=== PATIENT | male | born 1935 | race Caucasian/White ===

== ENCOUNTER 2019-05-12 18:37 | Observation (INO) | payer MEDICARE, OTHER ==
[~2019-05-12] VITALS: Ht 190.5 cm; Wt 101.6 kg
--- OUTSIDE RECORDS SUMMARY | 2019-05-12 18:41 | XMS REPORT ---
Author Author [facility] Address Unknown Phone Unavailable Care Team Providers Care Human Resources Supervisor Name Role Phone Unavailable Unavailable Payers Payer Name Policy Type Policy Number Effective Date Expiration Date Problems This patient has no known problems. Allergies, Adverse Reactions, Alerts Allergy Name Allergy Type Status Severity Reaction(s) Onset Date Inactive Date Treating Clinician Comments No Known Allergies DA Active U 2018-10-12 00:00:00 No Known Allergies DA Active U 2018-10-11 00:00:00 No Known Allergies DA Active U 2018-09-26 00:00:00 No Known Allergies DA Active U 2016-03-03 00:00:00 Medications This patient has no known medications. Results Test Description Test Time Test Comments Text Results Atomic Results Result Comments - XR CHEST 2 V 2018-10-19 15:01:00 FAX: Erik Garcia MD [phone] [place]: St: ADM FAX: Sukhdev Forde Fo Name: SHWETHA CARCAMO [facility] : 1935 Age/S: 83/M [address] Unit #: [id number] Loc: V.3091 [place] [address] Phys: Sukhdev Acostag DO Acct: [id number] Dis Date: Status: ADM IN PHONE #: [phone] Exam Date: 10/19/2018 1459 FAX #: [phone] Reason: increased fatigue and sobn EXAMS: CPT CODE: [id number] XR CHEST 2 V 80478 REASON FOR EXAM: increased fatigue and sobn Exam Order Date: 10/19/2018 12:00 AM Ordering Pernell: Sukhdev Acosta DO PROCEDURE: - XR CHEST 2 V COMPARISON: 10/16/2018 FINDINGS: PA and lateral views of the chest show patchy airspace opacity of the left base. The heart size is within normal limits. Pulmonary vasculatures are unremarkable. The osseous structures are grossly intact. IMPRESSION: Stable appearance of the atelectasis of the left base with a small left pleural effusion at 1501 Reported and signed by: Andrzej Wilson M.D. CC: Erik Elizabeth MD; Sukhdve Acosta DO Technologist: RT IVY(R); CODY Evansalrd Date/Time/By: 10/19/2018 (0691) : By: SaharaVTL Orig Print D/T: S: 10/19/2018 (3362) PAGE 1 Signed Report GLUBED 2018-10-19 10:26:00 GLUBED (test code=GLUBED) 100 mg/dL 74-106 Performed by certified directory assistance operator at [facility] BASIC METABOLIC [id number] 06:47:00* Test Item Value Reference Range Comments SODIUM (test code=NA) 141 mmol/L 136-145 POTASSIUM (test code=K) 4.1 mmol/L 3.5-5.1 CHLORIDE (test code=CL) 110.0 mmol/L 98-107 CARBON DIOXIDE (test code=CO2) 26.0 mmol/L 21-32 ANION GAP (test code=GAP) 9.1 10-20 GLUCOSE (test code=GLU) 108 mg/dL 74-106 BLOOD UREA NITROGEN (test code=BUN) 14 mg/dL 7-18 GLOMERULAR FILTRATION RATE (test code=GFR) > 60 mL/min >=60 Estimated GFR by using Modified MDRD formula.Chronic kidney disease is defined as either kidney damageor GFR <60 mL/min/1.73 m2 for >3 months. CREATININE (test code=CREAT) 1.00 mg/dL 0.7-1.3 BUN/CREATININE RATIO (test code=BUN/CREA) 13.6 10-20 CALCIUM (test code=CA) 8.2 mg/dL 8.5-10.1 B-TYPE NATRIURETIC [id number] 06:24:00* Test Item Value Reference Range Comments B-TYPE NATRIURETIC PEPTIDE (test code=BNP) 179.37 pgram/mL 0-100 CBC W/AUTO [id number] 06:02:00* Test Item Value Reference Range Comments WHITE BLOOD CELL (test code=WBC) 8.5 K/mm3 4.5-12.5 RED BLOOD CELL (test code=RBC) 2.89 mill/mm3 4.0-5.8 HEMOGLOBIN (test code=HGB) 8.5 gram/dL 13.0-17.5 HEMATOCRIT (test code=HCT) 27.9 % 42.0-52.0 MEAN CELL VOLUME (test code=MCV) 96.5 fL 80-98 MEAN CELL HGB (test code=MCH) 29.4 picogram 27.0-33.0 MEAN CELL HGB CONCETRATION (test code=MCHC) 30.5 gram/dL 33.0-36.0 RED CELL DISTRIBUTION WIDTH (test code=RDW) 15.3 % 11.6-16.2 RED CELL DISTRIBUTION WIDTH SD (test code=RDW-SD) 52.4 fL 37.0-51.0 PLATELET COUNT (test code=PLT) 348 K/mm3 150-450 MEAN PLATELET VOLUME (test code=MPV) 9.5 fL 6.7-11.0 NEUTROPHIL % (test code=NT%) 57.1 % 39.0-69.0 IMMATURE GRANULOCYTE % (test code=IG%) 0.9 % 0.0-5.0 LYMPHOCYTE % (test code=LY%) 27.1 % 25.0-55.0 MONOCYTE % (test code=MO%) 11.9 % 0.0-10.0 EOSINOPHIL % (test code=EO%) 2.4 % 0.0-5.0 BASOPHIL % (test code=BA%) 0.6 % 0.0-1.0 NUCLEATED RBC % (test code=NRBC%) 0.0 % 0-0 NEUTROPHIL # (test code=NT#) 4.85 K/mm3 1.8-7.7 IMMATURE GRANULOCYTE # (test code=IG#) 0.08 x10 3/uL 0-0.03 LYMPHOCYTE # (test code=LY#) 2.30 K/mm3 1.0-5.0 MONOCYTE # (test code=MO#) 1.01 K/mm3 0-0.8 EOSINOPHIL # (test code=EO#) 0.20 K/mm3 0.0-0.5 BASOPHIL # (test code=BA#) 0.05 K/mm3 0.0-0.2 NUCLEATED RBC # (test code=NRBC#) 0.00 K/mm3 0.0-0.1 - XR CHEST 2 [id number] 18:04:00 FAX: Erik Garcia MD [phone] [place]: St: ADM FAX: Sukhdev Forde [facility] FAX: Lynda Oconnor NP [phone] Name: SHWETHA CARCAMO [facility] : 1935 Age/S: 83/M [address] [facility] Unit #: [id number] Loc: V.3091 [place] [address] Phys: Lynda Oconnor NP Acct: [id number] Dis Date: Status: ADM IN PH ONE #: [phone] Exam Date: 10/16/2018 1750 FAX #: [phone] Reason: CHEST PAIN EXAMS: CPT CODE: [id number] XR CHEST 2 V 25196 CLINICAL HISTO RY: CHEST PAIN TECHNIQUE: AP chest x-ray COMPARISON: Previous day. IMPRESSION: No significant inte rval change. Small left pleural effusion and basilar atelectasis. Mild c ardiomegaly. Atherosclerotic vascular calcification of the thoracic aort a. a t 180 Reported and signed by: Catarina Hansen D.O. CC: Erik Elizabeth MD; Sukhdev Acosta [facility] DO; Lynda Oconnor INGREDIENT HANDLER Techn ologist: MITCHEL GILL, RT(R) Trnscrd Date/Evan e/By: 10/16/2018 (1803) : By: [email or web address] Orig Print D/T: S: 10/16/2018 (3027) PAGE 1 Signed Report - XR CHEST 2 [id number] 09:35:00 FAX: Erik Garcia MD [phone] [place]: St: ADM FAX: Sukhdev Forde FAX: Evi Gasca --------- Name: SHWETHA CARCAMO [facility] : 1935 Age/S: 83/M [address] it #: [id number] Loc: V.3091 [place] [address] Phys: Evi Lima [place] Acct: [id number] Dis Date: Status: ADM IN ONE #: [phone] Exam Date: 10/15/2018920 FAX #: [phone] Reason: sob EXAMS: CPT CODE: [id number] XR CHEST 2 V 27111 HISTORY: Short ness of breath. COMPARISON: October 11, 2018 Moderate r ight effusion with subsegmental atelectasis appears slightly worse from pr evious exam. COPD. Calcified granulomas in the right upper lobe Moderate c ardiomegaly. DJD of the dorsal spine. IMPRESSION: Increasing moderate left effusion with subsegmental atelectasis with out infiltrates or congestion. at 0935 Reported and signed by: Cher Barroso M.D. CC: Erik Elizabeth MD; Sukhdev Acosta Pe, DO; Evi Lima Technologist: RT IVY([place]) Trnscrd Date/Time/By: 10/15/2018 (6177) : By: [email or web address] Orig Print D/T: S: 10/15/2018 (0122) PAGE 1 Signed Report BASIC METABOLIC [id number] 07:41:00* Test Item Value Reference Range Comments SODIUM (test code=NA) 141 mmol/L 136-145 POTASSIUM (test code=K) 4.6 mmol/L 3.5-5.1 CHLORIDE (test code=CL) 110.0 mmol/L 98-107 CARBON DIOXIDE (test code=CO2) 24.0 mmol/L 21-32 ANION GAP (test code=GAP) 11.6 10-20 GLUCOSE (test code=GLU) 108 mg/dL 74-106 BLOOD UREA NITROGEN (test code=BUN) 14 mg/dL 7-18 GLOMERULAR FILTRATION RATE (test code=GFR) > 60 mL/min >=60 Estimated GFR by using Modified MDRD formula.Chronic kidney disease is defined as either kidney damageor GFR <60 mL/min/1.73 m2 for >3 months. CREATININE (test code=CREAT) 0.90 mg/dL 0.7-1.3 BUN/CREATININE RATIO (test code=BUN/CREA) 15.2 10-20 CALCIUM (test code=CA) 8.4 mg/dL 8.5-10.1 BASIC METABOLIC [id number] 07:29:00* Test Item Value Reference Range Comments SODIUM (test code=NA) 141 mmol/L 136-145 POTASSIUM (test code=K) 4.6 mmol/L 3.5-5.1 CHLORIDE (test code=CL) 110.0 mmol/L 98-107 CARBON DIOXIDE (test code=CO2) mmol/L 21-32 ANION GAP (test code=GAP) 10-20 GLUCOSE (test code=GLU) mg/dL 74-106 BLOOD UREA NITROGEN (test code=BUN) mg/dL 7-18 GLOMERULAR FILTRATION RATE (test code=GFR) mL/min >=60 CREATININE (test code=CREAT) mg/dL 0.7-1.3 BUN/CREATININE RATIO (test code=BUN/CREA) 10-20 CALCIUM (test code=CA) mg/dL 8.5-10.1 [id number] 07:04:00* Test Item Value Reference Range Comments AMMONIA (test code=AMM) 12 umol/L 11-32 CBC W/AUTO [id number] 06:59:00* Test Item Value Reference Range Comments WHITE BLOOD CELL (test code=WBC) 8.1 K/mm3 4.5-12.5 RED BLOOD CELL (test code=RBC) 2.57 mill/mm3 4.0-5.8 HEMOGLOBIN (test code=HGB) 7.9 gram/dL 13.0-17.5 HEMATOCRIT (test code=HCT) 25.5 % 42.0-52.0 MEAN CELL VOLUME (test code=MCV) 99.2 fL 80-98 MEAN CELL HGB (test code=MCH) 30.7 picogram 27.0-33.0 MEAN CELL HGB CONCETRATION (test code=MCHC) 31.0 gram/dL 33.0-36.0 RED CELL DISTRIBUTION WIDTH (test code=RDW) 15.4 % 11.6-16.2 RED CELL DISTRIBUTION WIDTH SD (test code=RDW-SD) 54.2 fL 37.0-51.0 PLATELET COUNT (test code=PLT) 342 K/mm3 150-450 MEAN PLATELET VOLUME (test code=MPV) 9.4 fL 6.7-11.0 NEUTROPHIL % (test code=NT%) 60.6 % 39.0-69.0 IMMATURE GRANULOCYTE % (test code=IG%) 1.7 % 0.0-5.0 LYMPHOCYTE % (test code=LY%) 20.5 % 25.0-55.0 MONOCYTE % (test code=MO%) 12.5 % 0.0-10.0 EOSINOPHIL % (test code=EO%) 4.3 % 0.0-5.0 BASOPHIL % (test code=BA%) 0.4 % 0.0-1.0 NUCLEATED RBC % (test code=NRBC%) 0.0 % 0-0 NEUTROPHIL # (test code=NT#) 4.93 K/mm3 1.8-7.7 IMMATURE GRANULOCYTE # (test code=IG#) 0.14 x10 3/uL 0-0.03 LYMPHOCYTE # (test code=LY#) 1.67 K/mm3 1.0-5.0 MONOCYTE # (test code=MO#) 1.02 K/mm3 0-0.8 EOSINOPHIL # (test code=EO#) 0.35 K/mm3 0.0-0.5 BASOPHIL # (test code=BA#) 0.03 K/mm3 0.0-0.2 NUCLEATED RBC # (test code=NRBC#) 0.00 K/mm3 0.0-0.1 [id number] 06:33:00* Test Item Value Reference Range Comments GLUBED (test code=GLUBED) 112 mg/dL 74-106 Performed by certified directory assistance operator at [facility] [id number] 20:41:00* Test Item Value Reference Range Comments GLUBED (test code=GLUBED) 117 mg/dL 74-106 Performed by certified directory assistance operator at [facility] - XR CHEST 1 [id number] 14:59:00 FAX: Parag Andrade MD [place]: B St: ADM FAX: Erik Garcia MD [phone] FAX: Lynda Oconnor NP [phone] Name: SHWETHA CARCAMO [facility] : 1935 Age/S: 83/M [address] [facility] Unit #: [id number] Loc: V.2094 [place] [address] Phys: Lynda Oconnor NP Acct: [id number] Dis Date: Status: ADM IN ONE #: [phone] Exam Date: 10/11/2018 5105 FAX #: [phone] Reason: cough EXAMS: CPT CODE: [id number] XR CHEST 1 V 80119 REASON FOR EXAM: cough EXAM ORDER DATE: 10/11/2018 12:00 AM Ordering Pernell: Lynda Oconnor NP PROCEDURE: - XR CHEST 1 V COMPARISON: 10/08/2018 FINDINGS: Portable AP frontal view of the chest obtained at 2:43 PM shows patchy airspace opacity of the left base. There is no evidence of effusion. The heart size is within normal limits. Pulmonary vasculatures are minimally congested. I MPRESSION: Minimal pulmonary venous congestion and patchy atelectasis of the left base at 5780 Reported and signed by: Andrzej Wilson M.D. CC: Parag Garsia; Erik Elizabeth MD; Lynda Oconnor NP Technologist: RT IVY([place]) Trnscrd Date/Time/By: 0 10/11/2018 (1459) : By: SaharaVTL Orig Print D/T: S: 10/11/2018 (1549) PAGE 1 Signed Report [id number] 11:56:00* Test Item Value Reference Range Comments GLUBED (test code=GLUBED) 130 mg/dL 74-106 Performed by certified directory assistance operator at [facility]2019-07-29 05:56:00* Test Item Value Reference Range Comments GLUBED (test code=GLUBED) 117 mg/dL 74-106 Performed by certified directory assistance operator at [facility] [id number] 20:43:00* Test Item Value Reference Range Comments GLUBED (test code=GLUBED) 104 mg/dL 74-106 Performed by certified directory assistance operator at [facility] [id number] 17:46:00* Test Item Value Reference Range Comments GLUBED (test code=GLUBED) 123 mg/dL 74-106 Performed by certified directory assistance operator at [facility] [id number] 12:23:00* Test Item Value Reference Range Comments GLUBED (test code=GLUBED) 117 mg/dL 74-106 Performed by certified directory assistance operator at [facility] [id number] 21:35:00* Test Item Value Reference Range Comments GLUBED (test code=GLUBED) 105 mg/dL 74-106 Performed by certified directory assistance operator at [facility] [id number] 17:15:00* Test Item Value Reference Range Comments GLUBED (test code=GLUBED) 84 mg/dL 74-106 Performed by certified directory assistance operator at [facility] [id number] 12:46:00* Test Item Value Reference Range Comments GLUBED (test code=GLUBED) 102 mg/dL 74-106 Performed by certified directory assistance operator at [facility] [id number] 08:42:00* Test Item Value Reference Range Comments GLUBED (test code=GLUBED) 97 mg/dL 74-106 Performed by certified directory assistance operator at [facility] BASIC METABOLIC [id number] 05:43:00* Test Item Value Reference Range Comments SODIUM (test code=NA) 139 mmol/L 136-145 POTASSIUM (test code=K) 4.0 mmol/L 3.5-5.1 CHLORIDE (test code=CL) 108.0 mmol/L 98-107 CARBON DIOXIDE (test code=CO2) 23.0 mmol/L 21-32 ANION GAP (test code=GAP) 12.0 10-20 GLUCOSE (test code=GLU) 122 mg/dL 74-106 BLOOD UREA NITROGEN (test code=BUN) 25 mg/dL 7-18 GLOMERULAR FILTRATION RATE (test code=GFR) > 60 mL/min >=60 Estimated GFR by using Modified MDRD formula.Chronic kidney disease is defined as either kidney damageor GFR <60 mL/min/1.73 m2 for >3 months. CREATININE (test code=CREAT) 1.00 mg/dL 0.7-1.3 BUN/CREATININE RATIO (test code=BUN/CREA) 26.3 10-20 CALCIUM (test code=CA) 8.4 mg/dL 8.5-10.1 [id number] 05:43:00* Test Item Value Reference Range Comments PHOSPHORUS (test code=PHOS) 4.2 mg/dL 2.5-4.9 [id number] 05:43:00* Test Item Value Reference Range Comments MAGNESIUM (test code=MAG) 2.6 mg/dL 1.8-2.4 BASIC METABOLIC [id number] 05:34:00* Test Item Value Reference Range Comments SODIUM (test code=NA) 139 mmol/L 136-145 POTASSIUM (test code=K) 4.0 mmol/L 3.5-5.1 CHLORIDE (test code=CL) 108.0 mmol/L 98-107 CARBON DIOXIDE (test code=CO2) mmol/L 21-32 ANION GAP (test code=GAP) 10-20 GLUCOSE (test code=GLU) mg/dL 74-106 BLOOD UREA NITROGEN (test code=BUN) mg/dL 7-18 GLOMERULAR FILTRATION RATE (test code=GFR) mL/min >=60 CREATININE (test code=CREAT) mg/dL 0.7-1.3 BUN/CREATININE RATIO (test code=BUN/CREA) 10-20 CALCIUM (test code=CA) mg/dL 8.5-10.1 [id number] 05:34:00* Test Item Value Reference Range Comments PHOSPHORUS (test code=PHOS) mg/dL 2.5-4.9 [id number] 05:34:00* Test Item Value Reference Range Comments MAGNESIUM (test code=MAG) mg/dL 1.8-2.4 CBC W/AUTO [id number] 05:24:00* Test Item Value Reference Range Comments WHITE BLOOD CELL (test code=WBC) 11.1 K/mm3 4.5-12.5 RED BLOOD CELL (test code=RBC) 2.51 mill/mm3 4.0-5.8 HEMOGLOBIN (test code=HGB) 7.7 gram/dL 13.0-17.5 HEMATOCRIT (test code=HCT) 23.3 % 42.0-52.0 MEAN CELL VOLUME (test code=MCV) 92.8 fL 80-98 MEAN CELL HGB (test code=MCH) 30.7 picogram 27.0-33.0 MEAN CELL HGB CONCETRATION (test code=MCHC) 33.0 gram/dL 33.0-36.0 RED CELL DISTRIBUTION WIDTH (test code=RDW) 14.6 % 11.6-16.2 RED CELL DISTRIBUTION WIDTH SD (test code=RDW-SD) 49.5 fL 37.0-51.0 PLATELET COUNT (test code=PLT) 233 K/mm3 150-450 RESULT VERIFIED BY REPEAT ANALYSIS MEAN PLATELET VOLUME (test code=MPV) 10.2 fL 6.7-11.0 NEUTROPHIL % (test code=NT%) 61.6 % 39.0-69.0 IMMATURE GRANULOCYTE % (test code=IG%) 1.4 % 0.0-5.0 LYMPHOCYTE % (test code=LY%) 20.7 % 25.0-55.0 MONOCYTE % (test code=MO%) 13.3 % 0.0-10.0 EOSINOPHIL % (test code=EO%) 2.5 % 0.0-5.0 BASOPHIL % (test code=BA%) 0.5 % 0.0-1.0 NUCLEATED RBC % (test code=NRBC%) 0.8 % 0-0 NEUTROPHIL # (test code=NT#) 6.82 K/mm3 1.8-7.7 IMMATURE GRANULOCYTE # (test code=IG#) 0.16 x10 3/uL 0-0.03 LYMPHOCYTE # (test code=LY#) 2.30 K/mm3 1.0-5.0 MONOCYTE # (test code=MO#) 1.48 K/mm3 0-0.8 EOSINOPHIL # (test code=EO#) 0.28 K/mm3 0.0-0.5 BASOPHIL # (test code=BA#) 0.05 K/mm3 0.0-0.2 NUCLEATED RBC # (test code=NRBC#) 0.09 K/mm3 0.0-0.1 MANUAL DIFF REQUIRED (test code=MDIFF) NO [id number] 21:25:00* Test Item Value Reference Range Comments GLUBED (test code=GLUBED) 86 mg/dL 74-106 Performed by certified directory assistance operator at [facility] [id number] 15:25:00* Test Item Value Reference Range Comments GLUBED (test code=GLUBED) 105 mg/dL 74-106 Performed by certified directory assistance operator at [facility] BASIC METABOLIC [id number] 09:47:00* Test Item Value Reference Range Comments SODIUM (test code=NA) 142 mmol/L 136-145 POTASSIUM (test code=K) 4.4 mmol/L 3.5-5.1 CHLORIDE (test code=CL) 110.0 mmol/L 98-107 CARBON DIOXIDE (test code=CO2) 23.0 mmol/L 21-32 ANION GAP (test code=GAP) 13.4 10-20 GLUCOSE (test code=GLU) 136 mg/dL 74-106 BLOOD UREA NITROGEN (test code=BUN) 31 mg/dL 7-18 GLOMERULAR FILTRATION RATE (test code=GFR) 58 mL/min >=60 Estimated GFR by using Modified MDRD formula.Chronic kidney disease is defined as either kidney damageor GFR <60 mL/min/1.73 m2 for >3 months. CREATININE (test code=CREAT) 1.20 mg/dL 0.7-1.3 BUN/CREATININE RATIO (test code=BUN/CREA) 26.1 10-20 CALCIUM (test code=CA) 8.9 mg/dL 8.5-10.1 BASIC METABOLIC [id number] 09:41:00* Test Item Value Reference Range Comments SODIUM (test code=NA) 142 mmol/L 136-145 POTASSIUM (test code=K) 4.4 mmol/L 3.5-5.1 CHLORIDE (test code=CL) 110.0 mmol/L 98-107 CARBON DIOXIDE (test code=CO2) mmol/L 21-32 ANION GAP (test code=GAP) 10-20 GLUCOSE (test code=GLU) mg/dL 74-106 BLOOD UREA NITROGEN (test code=BUN) mg/dL 7-18 GLOMERULAR FILTRATION RATE (test code=GFR) mL/min >=60 CREATININE (test code=CREAT) mg/dL 0.7-1.3 BUN/CREATININE RATIO (test code=BUN/CREA) 10-20 CALCIUM (test code=CA) mg/dL 8.5-10.1 BASIC METABOLIC [id number] 07:25:00* Test Item Value Reference Range Comments SODIUM (test code=NA) 141 mmol/L 136-145 POTASSIUM (test code=K) 5.4 mmol/L 3.5-5.1 HEMOLYSIS 2+ CHLORIDE (test code=CL) 109.0 mmol/L 98-107 CARBON DIOXIDE (test code=CO2) 24.0 mmol/L 21-32 ANION GAP (test code=GAP) 13.4 10-20 GLUCOSE (test code=GLU) 130 mg/dL 74-106 BLOOD UREA NITROGEN (test code=BUN) 32 mg/dL 7-18 GLOMERULAR FILTRATION RATE (test code=GFR) > 60 mL/min >=60 Estimated GFR by using Modified MDRD formula.Chronic kidney disease is defined as either kidney damageor GFR <60 mL/min/1.73 m2 for >3 months. CREATININE (test code=CREAT) 1.00 mg/dL 0.7-1.3 BUN/CREATININE RATIO (test code=BUN/CREA) 31.7 10-20 CALCIUM (test code=CA) 8.2 mg/dL 8.5-10.1 [id number] 07:25:00* Test Item Value Reference Range Comments PHOSPHORUS (test code=PHOS) 3.2 mg/dL 2.5-4.9 [id number] 07:25:00* Test Item Value Reference Range Comments MAGNESIUM (test code=MAG) 2.7 mg/dL 1.8-2.4 CALCIUM [id number] 07:25:00* Test Item Value Reference Range Comments CALCIUM IONIZED (test code=TANGELA) 1.23 mmol/L 1.12-1.32 - XR CHEST 1 [id number] 07:25:00 FAX: Stephani Madrid NP [phone] [place]: St: ADM FAX: Parag Andrade MD FAX: Erik Garcia MD [phone] Name: SHWETHA CARCAMO [facility] : 1935 Age/S: 83/M [address] [facility] Unit #: [id number] Loc: V.S24 [place] [address] Phys: Stephani Madrid NP Acct: [id number] Dis Date: Status: ADM IN ONE #: [phone] Exam Date: 10/08/2018523 FAX #: [phone] Reason: sob EXAMS: CPT CODE: [id number] XR CHEST 1 V 03953 CLINICAL HISTO RY: Shortness of breath; chest pain; second-degree heart block TECHNIQUE: AP chest x-ray COMPARISON: Previous day. IMPRESSION: Tiny residual right apical pneumothorax. Left basilar subsegmental atelectasis. No pleural effusion. Cardiomegaly. St ernotomy/CABG. Atherosclerotic vascular calcification of the thoracic ao rta. Right central venous catheter has been removed. Electronically Signed by Catarina Hansen D.O. on 09/14 at 0725 Reported and signed by: Catarina Hansen D.O. CC: Stephani Madrid NP; Parag Garsia; Erik Elizabeth MD chnologist: JEANNIE Weller Trnscrd Date/ Time/By: 10/08/2018 (0725) : By: [email or web address] Orig Print D/T: S: 10/09/19 (0717) PAGE 1 Signed Report BASIC METABOLIC [id number] 07:18:00* Test Item Value Reference Range Comments SODIUM (test code=NA) 141 mmol/L 136-145 POTASSIUM (test code=K) 5.4 mmol/L 3.5-5.1 HEMOLYSIS 2+ CHLORIDE (test code=CL) 109.0 mmol/L 98-107 CARBON DIOXIDE (test code=CO2) mmol/L 21-32 ANION GAP (test code=GAP) 10-20 GLUCOSE (test code=GLU) mg/dL 74-106 BLOOD UREA NITROGEN (test code=BUN) mg/dL 7-18 GLOMERULAR FILTRATION RATE (test code=GFR) mL/min >=60 CREATININE (test code=CREAT) mg/dL 0.7-1.3 BUN/CREATININE RATIO (test code=BUN/CREA) 10-20 CALCIUM (test code=CA) mg/dL 8.5-10.1 [id number] 07:18:00* Test Item Value Reference Range Comments PHOSPHORUS (test code=PHOS) mg/dL 2.5-4.9 [id number] 07:18:00* Test Item Value Reference Range Comments MAGNESIUM (test code=MAG) mg/dL 1.8-2.4 CALCIUM [id number] 07:18:00* Test Item Value Reference Range Comments CALCIUM IONIZED (test code=TANGELA) 1.23 mmol/L 1.12-1.32 BASIC METABOLIC [id number] 07:13:00* Test Item Value Reference Range Comments SODIUM (test code=NA) 141 mmol/L 136-145 POTASSIUM (test code=K) 5.4 mmol/L 3.5-5.1 CHLORIDE (test code=CL) 109.0 mmol/L 98-107 CARBON DIOXIDE (test code=CO2) mmol/L 21-32 ANION GAP (test code=GAP) 10-20 GLUCOSE (test code=GLU) mg/dL 74-106 BLOOD UREA NITROGEN (test code=BUN) mg/dL 7-18 GLOMERULAR FILTRATION RATE (test code=GFR) mL/min >=60 CREATININE (test code=CREAT) mg/dL 0.7-1.3 BUN/CREATININE RATIO (test code=BUN/CREA) 10-20 CALCIUM (test code=CA) mg/dL 8.5-10.1 [id number] 07:13:00* Test Item Value Reference Range Comments PHOSPHORUS (test code=PHOS) mg/dL 2.5-4.9 [id number] 07:13:00* Test Item Value Reference Range Comments MAGNESIUM (test code=MAG) mg/dL 1.8-2.4 CALCIUM [id number] 07:13:00* Test Item Value Reference Range Comments CALCIUM IONIZED (test code=TANGELA) mmol/L 1.12-1.32 CBC W/AUTO [id number] 07:01:00* Test Item Value Reference Range Comments WHITE BLOOD CELL (test code=WBC) 10.3 K/mm3 4.5-12.5 RED BLOOD CELL (test code=RBC) 2.51 mill/mm3 4.0-5.8 HEMOGLOBIN (test code=HGB) 7.7 gram/dL 13.0-17.5 HEMATOCRIT (test code=HCT) 24.2 % 42.0-52.0 MEAN CELL VOLUME (test code=MCV) 96.4 fL 80-98 MEAN CELL HGB (test code=MCH) 30.7 picogram 27.0-33.0 MEAN CELL HGB CONCETRATION (test code=MCHC) 31.8 gram/dL 33.0-36.0 RED CELL DISTRIBUTION WIDTH (test code=RDW) 14.6 % 11.6-16.2 RED CELL DISTRIBUTION WIDTH SD (test code=RDW-SD) 51.7 fL 37.0-51.0 PLATELET COUNT (test code=PLT) 174 K/mm3 150-450 MEAN PLATELET VOLUME (test code=MPV) 10.6 fL 6.7-11.0 NEUTROPHIL % (test code=NT%) 62.4 % 39.0-69.0 IMMATURE GRANULOCYTE % (test code=IG%) 1.1 % 0.0-5.0 LYMPHOCYTE % (test code=LY%) 20.3 % 25.0-55.0 MONOCYTE % (test code=MO%) 14.1 % 0.0-10.0 EOSINOPHIL % (test code=EO%) 1.7 % 0.0-5.0 BASOPHIL % (test code=BA%) 0.4 % 0.0-1.0 NUCLEATED RBC % (test code=NRBC%) 0.3 % 0-0 NEUTROPHIL # (test code=NT#) 6.42 K/mm3 1.8-7.7 IMMATURE GRANULOCYTE # (test code=IG#) 0.11 x10 3/uL 0-0.03 LYMPHOCYTE # (test code=LY#) 2.09 K/mm3 1.0-5.0 MONOCYTE # (test code=MO#) 1.45 K/mm3 0-0.8 EOSINOPHIL # (test code=EO#) 0.17 K/mm3 0.0-0.5 BASOPHIL # (test code=BA#) 0.04 K/mm3 0.0-0.2 NUCLEATED RBC # (test code=NRBC#) 0.03 K/mm3 0.0-0.1 MANUAL DIFF REQUIRED (test code=MDIFF) NO [id number] 21:35:00* Test Item Value Reference Range Comments GLUBED (test code=GLUBED) 81 mg/dL 74-106 Performed by certified directory assistance operator at [facility] [id number] 16:36:00* Test Item Value Reference Range Comments GLUBED (test code=GLUBED) 99 mg/dL 74-106 Performed by certified directory assistance operator at [facility] - XR CHEST 1 [id number] 14:27:00 FAX: Parag Andrade MD [place]: [address]: ADM FAX: Erik Garcia MD [phone] FAX: Kathy Bryant Name: SHWETHA CARCAMO [facility] : 1935 Age/S: 83/M [address] [facility] Unit #: [id number] Loc: [address] [place] [address] Phys: Kathy Fuller NP Acct: [id number] Dis Date: Status: ADM IN ONE #: [phone] Exam Date: 10/07/2018 1410 FAX #: [phone] Reason: S/P REMOVAL PLEURAL AND MEDIASTINAL CHEST TUBES EXAMS: CPT CODE: [id number] XR CHEST 1 V 35858 REASON FOR EXAM: S/P REMOVAL PLEURAL AND MEDIASTINAL CHEST TUBES Exam Or pia Date: 10/07/2018 1:37 PM Ordering M.Jesús: Kathy Fuller NP PROCEDURE: - XR CHEST 1 V COMPARISON: AP chest x -ray earlier today at 5:35 AM FINDINGS: There is been inte rval removal of the bilateral thoracostomy tubes in the shunt range. Right IJ central line and sternotomy wires are unchanged. Tiny bi apical pneumothoraces are present and annotated by arrows. There is subseg mental atelectasis in the left lung base. Superimposed consolidation canno t be excluded. Left lung is better aerated compared to the previous exam h owever. Cardiac mediastinal silhouette is widened but stable in si ze. 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 Degenerative changes in the spine and right AC joint are once again noted. Visual ized upper abdomen is within normal limits. IMPRESSION: Small biapical pneumothoraces following removal of thoracostomy tubes an d mediastinal drains. Overall improved aeration of the left lung with sm all amount of residual subsegmental atelectasis in the left lung base. at 1427 Reported and signed by: Samuel Coughlin MD CC: Parag Garsia; Erik Elizabeth MD; Kathy Fuller NP Technologist: HAYDE COFFMAN, RT (R); Parth Bernal RT(R) [facility] Date/Time/By: 10/07/2018 (1427) : By: Allison [id number] Orig Print D/T: S: 10/07/2018 (1593) SUDARSHAN SCHAFER 1 Signed Report GLUBED 2018-10-07 11:40:00* Test Item Value Reference Range Comments GLUBED (test code=GLUBED) 99 mg/dL 74-106 Performed by certified directory assistance operator at [facility] [id number] 08:18:00* Test Item Value Reference Range Comments GLUBED (test code=GLUBED) 116 mg/dL 74-106 Performed by certified directory assistance operator at [facility] - XR CHEST 1 [id number] 07:28:00 FAX: Stephani Madrid NP [phone] [place]: St: ADM FAX: Parag Andrade MD FAX: Erik Garcia MD [phone] Name: SHWETHA CARCAMO [facility] : 1935 Age/S: 83/M [address] [facility] Unit #: [id number] Loc: V.S24 [place] [address] Phys: Stephani Madrid NP Acct: [id number] Dis Date: Status: ADM IN ONE #: [phone] Exam Date: 10/07/2018 0548 FAX #: [phone] Reason: sob EXAMS: CPT CODE: [id number] XR CHEST 1 V 93368 CLINICAL HISTO RY: Shortness of breath; chest pain; second-degree heart block TECHNIQUE: AP chest x-ray COMPARISON: Previous day. IMPRESSION: Chest tubes in stable position without pneumo thorax. Left basilar atelectasis. No pleural effusion. Cardiomegaly. Estiven rnotomy/CABG. Atherosclerotic vascular calcification of the thoracic aor ta. Right central venous catheter and mediastinal drain. at 0728 Reported and signed by: Catarina Hansen D.O. CC: Stephani Madrid NP; Parag Garsia; Erik Elizabeth MD Technol ogist: JEANNIE Weller Trnscrd Date/Time/ By: 10/07/2018 (0728) : By: [email or web address] Orig Print D/T: S: 10/07/2018 (0 042) PAGE 1 Signed Report BASIC METABOLIC [id number] 07:03:00* Test Item Value Reference Range Comments SODIUM (test code=NA) 139 mmol/L 136-145 POTASSIUM (test code=K) 4.0 mmol/L 3.5-5.1 CHLORIDE (test code=CL) 107.0 mmol/L 98-107 CARBON DIOXIDE (test code=CO2) 27.0 mmol/L 21-32 ANION GAP (test code=GAP) 9.0 10-20 GLUCOSE (test code=GLU) 151 mg/dL 74-106 BLOOD UREA NITROGEN (test code=BUN) 28 mg/dL 7-18 GLOMERULAR FILTRATION RATE (test code=GFR) > 60 mL/min >=60 Estimated GFR by using Modified MDRD formula.Chronic kidney disease is defined as either kidney damageor GFR <60 mL/min/1.73 m2 for >3 months. CREATININE (test code=CREAT) 0.90 mg/dL 0.7-1.3 BUN/CREATININE RATIO (test code=BUN/CREA) 29.5 10-20 CALCIUM (test code=CA) 8.2 mg/dL 8.5-10.1 [id number] 07:03:00* Test Item Value Reference Range Comments PHOSPHORUS (test code=PHOS) 2.5 mg/dL 2.5-4.9 [id number] 07:03:00* Test Item Value Reference Range Comments MAGNESIUM (test code=MAG) 2.5 mg/dL 1.8-2.4 CALCIUM [id number] 07:03:00* Test Item Value Reference Range Comments CALCIUM IONIZED (test code=TANGELA) 1.25 mmol/L 1.12-1.32 SERUM [id number] 07:01:00* Test Item Value Reference Range Comments SERUM IRON (test code=IRON) 18 ug/dL 50-175 TOTAL IRON BINDING [id number] 07:01:00* Test Item Value Reference Range Comments TOTAL IRON BINDING CAPACITY (test code=TIBC) 133 mcg/dL 250-450 [id number] 07:01:00* Test Item Value Reference Range Comments FERRITIN (test code=TRICIA) 438 ng/mL 8-388 BASIC METABOLIC [id number] 06:59:00* Test Item Value Reference Range Comments SODIUM (test code=NA) 139 mmol/L 136-145 POTASSIUM (test code=K) 4.0 mmol/L 3.5-5.1 CHLORIDE (test code=CL) 107.0 mmol/L 98-107 CARBON DIOXIDE (test code=CO2) mmol/L 21-32 ANION GAP (test code=GAP) 10-20 GLUCOSE (test code=GLU) mg/dL 74-106 BLOOD UREA NITROGEN (test code=BUN) mg/dL 7-18 GLOMERULAR FILTRATION RATE (test code=GFR) mL/min >=60 CREATININE (test code=CREAT) mg/dL 0.7-1.3 BUN/CREATININE RATIO (test code=BUN/CREA) 10-20 CALCIUM (test code=CA) mg/dL 8.5-10.1 [id number] 06:59:00* Test Item Value Reference Range Comments PHOSPHORUS (test code=PHOS) mg/dL 2.5-4.9 [id number] 06:59:00* Test Item Value Reference Range Comments MAGNESIUM (test code=MAG) mg/dL 1.8-2.4 CALCIUM [id number] 06:59:00* Test Item Value Reference Range Comments CALCIUM IONIZED (test code=TANGELA) 1.25 mmol/L 1.12-1.32 BASIC METABOLIC [id number] 06:59:00* Test Item Value Reference Range Comments SODIUM (test code=NA) 139 mmol/L 136-145 POTASSIUM (test code=K) 4.0 mmol/L 3.5-5.1 CHLORIDE (test code=CL) 107.0 mmol/L 98-107 CARBON DIOXIDE (test code=CO2) mmol/L 21-32 ANION GAP (test code=GAP) 10-20 GLUCOSE (test code=GLU) mg/dL 74-106 BLOOD UREA NITROGEN (test code=BUN) mg/dL 7-18 GLOMERULAR FILTRATION RATE (test code=GFR) mL/min >=60 CREATININE (test code=CREAT) mg/dL 0.7-1.3 BUN/CREATININE RATIO (test code=BUN/CREA) 10-20 CALCIUM (test code=CA) 8.2 mg/dL 8.5-10.1 [id number] 06:59:00* Test Item Value Reference Range Comments PHOSPHORUS (test code=PHOS) mg/dL 2.5-4.9 [id number] 06:59:00* Test Item Value Reference Range Comments MAGNESIUM (test code=MAG) mg/dL 1.8-2.4 CALCIUM [id number] 06:59:00* Test Item Value Reference Range Comments CALCIUM IONIZED (test code=TANGELA) 1.25 mmol/L 1.12-1.32 BASIC METABOLIC [id number] 06:58:00* Test Item Value Reference Range Comments SODIUM (test code=NA) mmol/L 136-145 POTASSIUM (test code=K) mmol/L 3.5-5.1 CHLORIDE (test code=CL) mmol/L 98-107 CARBON DIOXIDE (test code=CO2) mmol/L 21-32 ANION GAP (test code=GAP) 10-20 GLUCOSE (test code=GLU) mg/dL 74-106 BLOOD UREA NITROGEN (test code=BUN) mg/dL 7-18 GLOMERULAR FILTRATION RATE (test code=GFR) mL/min >=60 CREATININE (test code=CREAT) mg/dL 0.7-1.3 BUN/CREATININE RATIO (test code=BUN/CREA) 10-20 CALCIUM (test code=CA) mg/dL 8.5-10.1 [id number] 06:58:00* Test Item Value Reference Range Comments PHOSPHORUS (test code=PHOS) mg/dL 2.5-4.9 [id number] 06:58:00* Test Item Value Reference Range Comments MAGNESIUM (test code=MAG) mg/dL 1.8-2.4 CALCIUM [id number] 06:58:00* Test Item Value Reference Range Comments CALCIUM IONIZED (test code=TANGELA) 1.25 mmol/L 1.12-1.32 CBC W/AUTO [id number] 06:40:00* Test Item Value Reference Range Comments WHITE BLOOD CELL (test code=WBC) 11.9 K/mm3 4.5-12.5 RED BLOOD CELL (test code=RBC) 2.49 mill/mm3 4.0-5.8 HEMOGLOBIN (test code=HGB) 7.7 gram/dL 13.0-17.5 HEMATOCRIT (test code=HCT) 23.8 % 42.0-52.0 MEAN CELL VOLUME (test code=MCV) 95.6 fL 80-98 MEAN CELL HGB (test code=MCH) 30.9 picogram 27.0-33.0 MEAN CELL HGB CONCETRATION (test code=MCHC) 32.4 gram/dL 33.0-36.0 RED CELL DISTRIBUTION WIDTH (test code=RDW) 14.4 % 11.6-16.2 RED CELL DISTRIBUTION WIDTH SD (test code=RDW-SD) 50.1 fL 37.0-51.0 PLATELET COUNT (test code=PLT) 135 K/mm3 150-450 MEAN PLATELET VOLUME (test code=MPV) 10.4 fL 6.7-11.0 NEUTROPHIL % (test code=NT%) 70.4 % 39.0-69.0 IMMATURE GRANULOCYTE % (test code=IG%) 0.7 % 0.0-5.0 LYMPHOCYTE % (test code=LY%) 15.3 % 25.0-55.0 MONOCYTE % (test code=MO%) 12.8 % 0.0-10.0 EOSINOPHIL % (test code=EO%) 0.5 % 0.0-5.0 BASOPHIL % (test code=BA%) 0.3 % 0.0-1.0 NUCLEATED RBC % (test code=NRBC%) 0.0 % 0-0 NEUTROPHIL # (test code=NT#) 8.41 K/mm3 1.8-7.7 IMMATURE GRANULOCYTE # (test code=IG#) 0.08 x10 3/uL 0-0.03 LYMPHOCYTE # (test code=LY#) 1.83 K/mm3 1.0-5.0 MONOCYTE # (test code=MO#) 1.53 K/mm3 0-0.8 EOSINOPHIL # (test code=EO#) 0.06 K/mm3 0.0-0.5 BASOPHIL # (test code=BA#) 0.03 K/mm3 0.0-0.2 NUCLEATED RBC # (test code=NRBC#) 0.00 K/mm3 0.0-0.1 MANUAL DIFF REQUIRED (test code=MDIFF) NO [id number] 21:53:00* Test Item Value Reference Range Comments GLUBED (test code=GLUBED) 111 mg/dL 74-106 Performed by certified directory assistance operator at [facility] [id number] 16:43:00* Test Item Value Reference Range Comments GLUBED (test code=GLUBED) 102 mg/dL 74-106 Performed by certified directory assistance operator at [facility] [id number] 11:54:00* Test Item Value Reference Range Comments GLUBED (test code=GLUBED) 112 mg/dL 74-106 Performed by certified directory assistance operator at [facility] ARTERIAL BLOOD [id number] 10:55:00* Test Item Value Reference Range Comments ARTERIAL BLOOD GAS PH (test code=PHA) 7.45 7.35-7.45 ARTERIAL BLOOD GAS PCO2 (test code=PCO2A) 32.5 mm Hg 35-45 ARTERIAL BLOOD GAS PO2 (test code=PO2A) 236.8 mmHg 80-100 BICARBONATE TOTAL HCO3 (test code=HCO3) 21.9 mmol/L 23.0-27.0 BASE EXCESS (test code=SONJA) -1.6 mmol/L -3.0-5.0 ABG O2 SATURATION (test code=SATA) 98.9 % 90.0-98.0 ABG TYPE (test code=TYPEA) Arterial FIO2 (test code=FIO2A) 100.0 ABG SITE (test code=SITEA) Rt RADIAL ARTERY SODIUM (test code=NA/ABG) 133.5 mEq/L 135-148 POTASSIUM (test code=K/ABG) 5.5 mEq/L 3.5-4.5 CHLORIDE (test code=CL/ABG) 108 mEq/L 98-106 GLUCOSE (test code=GLU/ABG) 156 mg/dL 74-99 HEMATOCRIT (test code=HCT/ABG) 29 % 42-52 IONIZED CALCIUM (test code=CAIABG) 1.12 mmol/L 1.1-1.37 TOTAL HGB (test code=THB) 9.7 gram/dL 13.0-17.5 HGB O2 SAT (test code=HBOSAT) 98.3 % 94.00-98.00 CARBOXYHEMOGLOBIN (test code=HOHGBT) 0.3 %totalHg 0.5-1.5 Results called to and read back by DR Cao 12:36 - 10/04/2018; by ALIX OLVERA RN METHEMOGLOBIN (test code=METHGB) 0.3 % 0.0-1.50 O2 CONTENT (test code=O2CT) 14.0 % vol 18.0-22.0 [id number] 08:51:00* Test Item Value Reference Range Comments GLUBED (test code=GLUBED) 133 mg/dL 74-106 Performed by certified directory assistance operator at [facility] CBC W/MANUAL [id number] 07:26:00* Test Item Value Reference Range Comments WHITE BLOOD CELL (test code=WBC) 14.8 K/mm3 4.5-12.5 RED BLOOD CELL (test code=RBC) 2.73 mill/mm3 4.0-5.8 HEMOGLOBIN (test code=HGB) 8.4 gram/dL 13.0-17.5 HEMATOCRIT (test code=HCT) 25.9 % 42.0-52.0 MEAN CELL VOLUME (test code=MCV) 94.9 fL 80-98 MEAN CELL HGB (test code=MCH) 30.8 picogram 27.0-33.0 MEAN CELL HGB CONCETRATION (test code=MCHC) 32.4 gram/dL 33.0-36.0 RED CELL DISTRIBUTION WIDTH (test code=RDW) 14.2 % 11.6-16.2 RED CELL DISTRIBUTION WIDTH SD (test code=RDW-SD) 49.2 fL 37.0-51.0 PLATELET COUNT (test code=PLT) 127 K/mm3 150-450 MEAN PLATELET VOLUME (test code=MPV) 11.4 fL 6.7-11.0 IMMATURE GRANULOCYTE % (test code=IG%) 0.7 % 0.0-5.0 NUCLEATED RBC % (test code=NRBC%) 0.0 % 0-0 NEUTROPHIL # (test code=NT#) 10.62 K/mm3 1.8-7.7 IMMATURE GRANULOCYTE # (test code=IG#) 0.11 x10 3/uL 0-0.03 LYMPHOCYTE # (test code=LY#) 1.80 K/mm3 1.0-5.0 MONOCYTE # (test code=MO#) 2.21 K/mm3 0-0.8 EOSINOPHIL # (test code=EO#) 0.00 K/mm3 0.0-0.5 BASOPHIL # (test code=BA#) 0.03 K/mm3 0.0-0.2 NUCLEATED RBC # (test code=NRBC#) 0.00 K/mm3 0.0-0.1 MANUAL DIFF REQUIRED (test code=MDIFF) YES STAIN ACCEPTABILITY (test code=STN ACCEPTABLE) STAIN ACCEPTABLE TOTAL CELLS COUNTED (test code=TCC) 115 #CELLS SEGMENTED NEUTROPHILS (test code=SEG) 78.3 % 39-69 BAND NEUTROPHIL (test code=BAND) 0 % 0-10 LYMPHOCYTE (test code=LYMPH) 10.4 % 25-55 REACTIVE LYMPH (test code=RELYMPH) 0 % MONOCYTE (test code=MON) 10.4 % 0-10 EOSINOPHIL (test code=EOS) 0.9 % 0.0-5.0 BASOPHIL (test code=BASO) 0 % 0-1.0 METAMYELOCYTE (test code=META) 0 % 0-0 MYELOCYTE (test code=MYELO) 0 % 0.0-0.0 PROMYELOCYTE (test code=PROM) 0 % 0-0 PLATELET ESTIMATE (test code=PLTEST) SLIGHTLY DECREASED PLATELET MORPHOLOGY (test code=PLTMORPH) NORMAL IMMATURE FORMS (test code=IMMAT) 0 % 0-0 BASIC METABOLIC [id number] 07:23:00* Test Item Value Reference Range Comments SODIUM (test code=NA) 139 mmol/L 136-145 POTASSIUM (test code=K) 4.2 mmol/L 3.5-5.1 CHLORIDE (test code=CL) 108.0 mmol/L 98-107 CARBON DIOXIDE (test code=CO2) 28.0 mmol/L 21-32 ANION GAP (test code=GAP) 7.2 10-20 GLUCOSE (test code=GLU) 162 mg/dL 74-106 BLOOD UREA NITROGEN (test code=BUN) 27 mg/dL 7-18 RESULT VERIFIED BY REPEAT ANALYSIS GLOMERULAR FILTRATION RATE (test code=GFR) 58 mL/min >=60 Estimated GFR by using Modified MDRD formula.Chronic kidney disease is defined as either kidney damageor GFR <60 mL/min/1.73 m2 for >3 months. CREATININE (test code=CREAT) 1.20 mg/dL 0.7-1.3 BUN/CREATININE RATIO (test code=BUN/CREA) 22.5 10-20 CALCIUM (test code=CA) 8.4 mg/dL 8.5-10.1 [id number] 07:23:00* Test Item Value Reference Range Comments PHOSPHORUS (test code=PHOS) 2.4 mg/dL 2.5-4.9 [id number] 07:23:00* Test Item Value Reference Range Comments MAGNESIUM (test code=MAG) 2.4 mg/dL 1.8-2.4 - XR CHEST 1 [id number] 07:12:00 FAX: Stephani Madrid NP [phone] [place]: St: ADM FAX: Parag Andrade MD FAX: Erik Garcia MD [phone] Name: SHWETHA CARCAMO [facility] : 1935 Age/S: 83/M [address] [facility] Unit #: [id number] Loc: V.S24 [place] [address] Phys: Stephani Madrid NP Acct: [id number] Dis Date: Status: ADM IN ONE #: [phone] Exam Date: 10/06/2018 0533 FAX #: [phone] Reason: sob EXAMS: CPT CODE: [id number] XR CHEST 1 V 41298 CLINICAL HISTO RY: Shortness of breath; chest pain; second-degree heart block TECHNIQUE: AP chest x-ray COMPARISON: Previous day. IMPRESSION: Chest tubes in stable position without pneumo thorax. Left basilar atelectasis. No pleural effusion. Cardiomegaly. Estiven rnotomy/CABG. Atherosclerotic vascular calcification of the thoracic aor ta. NG tube has been removed. Right [place] catheter and med iastinal drain remain in place. Electron ically Signed by Catarina Hansen D.O. on 10/06/2018 at 0712 Re ported and signed by: Catarina Hansen D.O. CC: Stephani Madrid NP; Parag Tinsley; Erik Elizabeth MD Technologist: JEANNIE CROWDER JR; Chica Weller Trnscrd Date/Time/By: 10/06/2018 (711) : By: [email or web address] Orig Print D/T: S: 10/06/2018 (0715) PAGE 1 Signed Report CALCIUM IONIZED 2018-10-06 06:56:00* Test Item Value Reference Range Comments CALCIUM IONIZED (test code=TANGELA) 1.24 mmol/L 1.12-1.32 BASIC METABOLIC [id number] 06:54:00* Test Item Value Reference Range Comments SODIUM (test code=NA) 139 mmol/L 136-145 POTASSIUM (test code=K) 4.2 mmol/L 3.5-5.1 CHLORIDE (test code=CL) 108.0 mmol/L 98-107 CARBON DIOXIDE (test code=CO2) mmol/L 21-32 ANION GAP (test code=GAP) 10-20 GLUCOSE (test code=GLU) mg/dL 74-106 BLOOD UREA NITROGEN (test code=BUN) mg/dL 7-18 GLOMERULAR FILTRATION RATE (test code=GFR) mL/min >=60 CREATININE (test code=CREAT) mg/dL 0.7-1.3 BUN/CREATININE RATIO (test code=BUN/CREA) 10-20 CALCIUM (test code=CA) mg/dL 8.5-10.1 [id number] 06:54:00* Test Item Value Reference Range Comments PHOSPHORUS (test code=PHOS) mg/dL 2.5-4.9 [id number] 06:54:00* Test Item Value Reference Range Comments MAGNESIUM (test code=MAG) mg/dL 1.8-2.4 CBC W/MANUAL [id number] 06:28:00* Test Item Value Reference Range Comments WHITE BLOOD CELL (test code=WBC) 14.8 K/mm3 4.5-12.5 RED BLOOD CELL (test code=RBC) 2.73 mill/mm3 4.0-5.8 HEMOGLOBIN (test code=HGB) 8.4 gram/dL 13.0-17.5 HEMATOCRIT (test code=HCT) 25.9 % 42.0-52.0 MEAN CELL VOLUME (test code=MCV) 94.9 fL 80-98 MEAN CELL HGB (test code=MCH) 30.8 picogram 27.0-33.0 MEAN CELL HGB CONCETRATION (test code=MCHC) 32.4 gram/dL 33.0-36.0 RED CELL DISTRIBUTION WIDTH (test code=RDW) 14.2 % 11.6-16.2 RED CELL DISTRIBUTION WIDTH SD (test code=RDW-SD) 49.2 fL 37.0-51.0 PLATELET COUNT (test code=PLT) 127 K/mm3 150-450 MEAN PLATELET VOLUME (test code=MPV) 11.4 fL 6.7-11.0 IMMATURE GRANULOCYTE % (test code=IG%) 0.7 % 0.0-5.0 NUCLEATED RBC % (test code=NRBC%) 0.0 % 0-0 NEUTROPHIL # (test code=NT#) 10.62 K/mm3 1.8-7.7 IMMATURE GRANULOCYTE # (test code=IG#) 0.11 x10 3/uL 0-0.03 LYMPHOCYTE # (test code=LY#) 1.80 K/mm3 1.0-5.0 MONOCYTE # (test code=MO#) 2.21 K/mm3 0-0.8 EOSINOPHIL # (test code=EO#) 0.00 K/mm3 0.0-0.5 BASOPHIL # (test code=BA#) 0.03 K/mm3 0.0-0.2 NUCLEATED RBC # (test code=NRBC#) 0.00 K/mm3 0.0-0.1 MANUAL DIFF REQUIRED (test code=MDIFF) YES STAIN ACCEPTABILITY (test code=STN ACCEPTABLE) TOTAL CELLS COUNTED (test code=TCC) #CELLS SEGMENTED NEUTROPHILS (test code=SEG) % 39-69 LYMPHOCYTE (test code=LYMPH) % 25-55 MONOCYTE (test code=MON) % 0-10 EOSINOPHIL (test code=EOS) % 0.0-5.0 CABOT RINGS (test code=CAB) MORPHOLOGY COMMENT (test code=MOC) PLATELET ESTIMATE (test code=PLTEST) PLATELET MORPHOLOGY (test code=PLTMORPH) CBC W/MANUAL [id number] 06:28:00* Test Item Value Reference Range Comments WHITE BLOOD CELL (test code=WBC) 14.8 K/mm3 4.5-12.5 RED BLOOD CELL (test code=RBC) 2.73 mill/mm3 4.0-5.8 HEMOGLOBIN (test code=HGB) 8.4 gram/dL 13.0-17.5 HEMATOCRIT (test code=HCT) 25.9 % 42.0-52.0 MEAN CELL VOLUME (test code=MCV) 94.9 fL 80-98 MEAN CELL HGB (test code=MCH) 30.8 picogram 27.0-33.0 MEAN CELL HGB CONCETRATION (test code=MCHC) 32.4 gram/dL 33.0-36.0 RED CELL DISTRIBUTION WIDTH (test code=RDW) 14.2 % 11.6-16.2 RED CELL DISTRIBUTION WIDTH SD (test code=RDW-SD) 49.2 fL 37.0-51.0 PLATELET COUNT (test code=PLT) 127 K/mm3 150-450 MEAN PLATELET VOLUME (test code=MPV) 11.4 fL 6.7-11.0 IMMATURE GRANULOCYTE % (test code=IG%) 0.7 % 0.0-5.0 NUCLEATED RBC % (test code=NRBC%) 0.0 % 0-0 NEUTROPHIL # (test code=NT#) 10.62 K/mm3 1.8-7.7 IMMATURE GRANULOCYTE # (test code=IG#) 0.11 x10 3/uL 0-0.03 LYMPHOCYTE # (test code=LY#) 1.80 K/mm3 1.0-5.0 MONOCYTE # (test code=MO#) 2.21 K/mm3 0-0.8 EOSINOPHIL # (test code=EO#) 0.00 K/mm3 0.0-0.5 BASOPHIL # (test code=BA#) 0.03 K/mm3 0.0-0.2 NUCLEATED RBC # (test code=NRBC#) 0.00 K/mm3 0.0-0.1 MANUAL DIFF REQUIRED (test code=MDIFF) YES STAIN ACCEPTABILITY (test code=STN ACCEPTABLE) TOTAL CELLS COUNTED (test code=TCC) #CELLS SEGMENTED NEUTROPHILS (test code=SEG) % 39-69 LYMPHOCYTE (test code=LYMPH) % 25-55 MONOCYTE (test code=MON) % 0-10 EOSINOPHIL (test code=EOS) % 0.0-5.0 MORPHOLOGY COMMENT (test code=MOC) PLATELET ESTIMATE (test code=PLTEST) PLATELET MORPHOLOGY (test code=PLTMORPH) CBC W/MANUAL [id number] 06:28:00* Test Item Value Reference Range Comments WHITE BLOOD CELL (test code=WBC) 14.8 K/mm3 4.5-12.5 RED BLOOD CELL (test code=RBC) 2.73 mill/mm3 4.0-5.8 HEMOGLOBIN (test code=HGB) 8.4 gram/dL 13.0-17.5 HEMATOCRIT (test code=HCT) 25.9 % 42.0-52.0 MEAN CELL VOLUME (test code=MCV) 94.9 fL 80-98 MEAN CELL HGB (test code=MCH) 30.8 picogram 27.0-33.0 MEAN CELL HGB CONCETRATION (test code=MCHC) 32.4 gram/dL 33.0-36.0 RED CELL DISTRIBUTION WIDTH (test code=RDW) 14.2 % 11.6-16.2 RED CELL DISTRIBUTION WIDTH SD (test code=RDW-SD) 49.2 fL 37.0-51.0 PLATELET COUNT (test code=PLT) 127 K/mm3 150-450 MEAN PLATELET VOLUME (test code=MPV) 11.4 fL 6.7-11.0 IMMATURE GRANULOCYTE % (test code=IG%) 0.7 % 0.0-5.0 NUCLEATED RBC % (test code=NRBC%) 0.0 % 0-0 NEUTROPHIL # (test code=NT#) 10.62 K/mm3 1.8-7.7 IMMATURE GRANULOCYTE # (test code=IG#) 0.11 x10 3/uL 0-0.03 LYMPHOCYTE # (test code=LY#) 1.80 K/mm3 1.0-5.0 MONOCYTE # (test code=MO#) 2.21 K/mm3 0-0.8 EOSINOPHIL # (test code=EO#) 0.00 K/mm3 0.0-0.5 BASOPHIL # (test code=BA#) 0.03 K/mm3 0.0-0.2 NUCLEATED RBC # (test code=NRBC#) 0.00 K/mm3 0.0-0.1 MANUAL DIFF REQUIRED (test code=MDIFF) YES STAIN ACCEPTABILITY (test code=STN ACCEPTABLE) TOTAL CELLS COUNTED (test code=TCC) #CELLS SEGMENTED NEUTROPHILS (test code=SEG) % 39-69 LYMPHOCYTE (test code=LYMPH) % 25-55 MONOCYTE (test code=MON) % 0-10 MORPHOLOGY COMMENT (test code=MOC) PLATELET ESTIMATE (test code=PLTEST) PLATELET MORPHOLOGY (test code=PLTMORPH) CBC W/MANUAL [id number] 06:27:00* Test Item Value Reference Range Comments WHITE BLOOD CELL (test code=WBC) 14.8 K/mm3 4.5-12.5 RED BLOOD CELL (test code=RBC) 2.73 mill/mm3 4.0-5.8 HEMOGLOBIN (test code=HGB) 8.4 gram/dL 13.0-17.5 HEMATOCRIT (test code=HCT) 25.9 % 42.0-52.0 MEAN CELL VOLUME (test code=MCV) 94.9 fL 80-98 MEAN CELL HGB (test code=MCH) 30.8 picogram 27.0-33.0 MEAN CELL HGB CONCETRATION (test code=MCHC) 32.4 gram/dL 33.0-36.0 RED CELL DISTRIBUTION WIDTH (test code=RDW) 14.2 % 11.6-16.2 RED CELL DISTRIBUTION WIDTH SD (test code=RDW-SD) 49.2 fL 37.0-51.0 PLATELET COUNT (test code=PLT) 127 K/mm3 150-450 MEAN PLATELET VOLUME (test code=MPV) 11.4 fL 6.7-11.0 IMMATURE GRANULOCYTE % (test code=IG%) 0.7 % 0.0-5.0 NUCLEATED RBC % (test code=NRBC%) 0.0 % 0-0 NEUTROPHIL # (test code=NT#) 10.62 K/mm3 1.8-7.7 IMMATURE GRANULOCYTE # (test code=IG#) 0.11 x10 3/uL 0-0.03 LYMPHOCYTE # (test code=LY#) 1.80 K/mm3 1.0-5.0 MONOCYTE # (test code=MO#) 2.21 K/mm3 0-0.8 EOSINOPHIL # (test code=EO#) 0.00 K/mm3 0.0-0.5 BASOPHIL # (test code=BA#) 0.03 K/mm3 0.0-0.2 NUCLEATED RBC # (test code=NRBC#) 0.00 K/mm3 0.0-0.1 MANUAL DIFF REQUIRED (test code=MDIFF) YES STAIN ACCEPTABILITY (test code=STN ACCEPTABLE) TOTAL CELLS COUNTED (test code=TCC) #CELLS SEGMENTED NEUTROPHILS (test code=SEG) % 39-69 LYMPHOCYTE (test code=LYMPH) % 25-55 MONOCYTE (test code=MON) % 0-10 EOSINOPHIL (test code=EOS) % 0.0-5.0 CABOT RINGS (test code=CAB) MORPHOLOGY COMMENT (test code=MOC) PLATELET ESTIMATE (test code=PLTEST) PLATELET MORPHOLOGY (test code=PLTMORPH) CBC W/MANUAL [id number] 06:27:00* Test Item Value Reference Range Comments WHITE BLOOD CELL (test code=WBC) 14.8 K/mm3 4.5-12.5 RED BLOOD CELL (test code=RBC) 2.73 mill/mm3 4.0-5.8 HEMOGLOBIN (test code=HGB) 8.4 gram/dL 13.0-17.5 HEMATOCRIT (test code=HCT) 25.9 % 42.0-52.0 MEAN CELL VOLUME (test code=MCV) 94.9 fL 80-98 MEAN CELL HGB (test code=MCH) 30.8 picogram 27.0-33.0 MEAN CELL HGB CONCETRATION (test code=MCHC) 32.4 gram/dL 33.0-36.0 RED CELL DISTRIBUTION WIDTH (test code=RDW) 14.2 % 11.6-16.2 RED CELL DISTRIBUTION WIDTH SD (test code=RDW-SD) 49.2 fL 37.0-51.0 PLATELET COUNT (test code=PLT) 127 K/mm3 150-450 MEAN PLATELET VOLUME (test code=MPV) 11.4 fL 6.7-11.0 IMMATURE GRANULOCYTE % (test code=IG%) 0.7 % 0.0-5.0 NUCLEATED RBC % (test code=NRBC%) 0.0 % 0-0 NEUTROPHIL # (test code=NT#) 10.62 K/mm3 1.8-7.7 IMMATURE GRANULOCYTE # (test code=IG#) 0.11 x10 3/uL 0-0.03 LYMPHOCYTE # (test code=LY#) 1.80 K/mm3 1.0-5.0 MONOCYTE # (test code=MO#) 2.21 K/mm3 0-0.8 EOSINOPHIL # (test code=EO#) 0.00 K/mm3 0.0-0.5 BASOPHIL # (test code=BA#) 0.03 K/mm3 0.0-0.2 NUCLEATED RBC # (test code=NRBC#) 0.00 K/mm3 0.0-0.1 MANUAL DIFF REQUIRED (test code=MDIFF) YES STAIN ACCEPTABILITY (test code=STN ACCEPTABLE) TOTAL CELLS COUNTED (test code=TCC) #CELLS SEGMENTED NEUTROPHILS (test code=SEG) % 39-69 LYMPHOCYTE (test code=LYMPH) % 25-55 MONOCYTE (test code=MON) % 0-10 EOSINOPHIL (test code=EOS) % 0.0-5.0 CABOT RINGS (test code=CAB) MORPHOLOGY COMMENT (test code=MOC) PLATELET ESTIMATE (test code=PLTEST) PLATELET MORPHOLOGY (test code=PLTMORPH) [id number] 20:55:00* Test Item Value Reference Range Comments GLUBED (test code=GLUBED) 145 mg/dL 74-106 Performed by certified directory assistance operator at [facility] - XR CHEST 1 [id number] 16:41:00 FAX: Parag Andrade MD [place]: [address]: ADM FAX: Erik Garcia MD [phone] FAX: Marissa Salazar MD [phone] Name: SHWETHA CARCAMO [facility] : 1935 Age/S: 83/M [address] Unit #: [id number] Loc: [facility] [address] Phys: Marissa Salazar MD Acct: [id number] Dis Date: Status: ADM IN ONE #: [phone] Exam Date: 10/05/2018 1610 FAX #: [phone] Reason: S/P NGT INSERTION EXAMS: CPT CODE: [id number] XR CHEST 1 V [id number] REASON FOR EXAM: S/P NGT INSERTION Exam Order Date: 10/05/2018 3:41 PM Ordering M.D.: Marissa Salazar MD PROCEDURE: - XR CHEST 1 V COMPARISON: AP chest x-ray earlier today at 2:49 PM FINDINGS: Interval placement of enteric suction tube into the stomach. Remaining lines and tubes and hardware are unchanged. Low lung volumes with bibasilar opacities are again noted. These opacities h ave worsened with regards to the left lung base and to the left hemidiaphr agm is no longer visualized. Cardiomediastinal silhouette is enlar ged but stable. Musculoskeletal structures are stable appearing. 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 I MPRESSION: Interval placement of enteric suction tube into the stomach. Worsening opacification of the left lung base may represent aspiration and/or atelectasis. This may be superimposed on a layering pleural effusion and/or infection. at 1641 Reported and signed by: Samuel nieto MD CC: Parag Garsia; Erik Elizabeth MD; Marissa Salazar MD Techno logist: ERIC BURGER RT (R); ... Trnscrd Date/Time /By: 10/05/2018 (164) : By: [email or web address] Orig Print D/T: S: 10/05/2018 ( 5625) PAGE 1 Signed Report [id number] 16:13:00* Test Item Value Reference Range Comments GLUBED (test code=GLUBED) 120 mg/dL 74-106 Performed by certified directory assistance operator at [facility] [id number] 16:13:00* Test Item Value Reference Range Comments GLUREUBEN (test code=GLUBED) 118 mg/dL 74-106 Performed by certified directory assistance operator at [facility] - XR CHEST 1 [id number] 15:49:00 FAX: Parag Andrade MD [place]: St: ADM FAX: Erik Garcia MD [phone] FAX: Marissa Salazar MD [phone] Name: SHWETHA CARCAMO [facility] : 1935 Age/S: 83/M [address] [facility] Unit #: [id number] Loc: V.S24 [place] [address] Phys: Marissa Salazar MD Acct: [id number] Dis Date: Status: ADM IN ONE #: [phone] Exam Date: 10/05/2018 1450 FAX #: [phone] Reason: SOB EXAMS: CPT CODE: [id number] XR CHEST 1 V [id number] REASON FOR EXAM: SOB Exam Order Date: 10/05/2018 2:46 PM Or silver Gimenez: Marissa Salazar MD PROCEDURE: - XR CHEST 1 V COMPARISON: AP chest x-ray earlier today at 5:29 AM FINDINGS: Previous right IJ Bronx-Go catheter has been removed. Remaining lines and tubes are grossly unchanged. Lung volumes are diminished and there is subsegmental atelectasis in the bilateral lung bases. There is increased opacity in the left lung base compared to the right side and a layering left-sided pleural effusion cannot be excluded. These findings are unchanged from the previous study Cardiomediastinal silh ouette and musculoskeletal structures are unchanged. IMPRESSION: Interval removal of right IJ [place]-Go catheter. Remaining findings are unchanged. at 1549 Reported and signed by: Samuel Coughlin MD CC: Parag Garsia; Erik Elizabeth MD; Marissa Salazar MD Technol ogist: Yojana Hernandez(R); ERIC RICARDO TAO RT (R) Trnscrd Date/Time/ By: 10/05/2018 (1541) : By: [email or web address] Orig Print D/T: S: 10/05/2018 (1 034) PAGE 1 Signed Report [id number] 15:05:00* Test Item Value Reference Range Comments POTASSIUM (test code=K) 4.3 mmol/L 3.5-5.1 [id number] 11:17:00* Test Item Value Reference Range Comments GLUBED (test code=GLUBED) 120 mg/dL 74-106 Performed by certified directory assistance operator at [facility] [id number] 10:52:00* Test Item Value Reference Range Comments GLUBED (test code=GLUBED) 119 mg/dL 74-106 Performed by certified directory assistance operator at [facility] [id number] 10:52:00* Test Item Value Reference Range Comments GLUBED (test code=GLUBED) 131 mg/dL 74-106 Performed by certified directory assistance operator at [facility] [id number] 10:52:00* Test Item Value Reference Range Comments GLUBED (test code=GLUBED) 133 mg/dL 74-106 Performed by certified directory assistance operator at [facility] CALCIUM [id number] 08:37:00* Test Item Value Reference Range Comments CALCIUM IONIZED (test code=TANGELA) 1.21 mmol/L 1.12-1.32 CBC W/MANUAL [id number] 08:26:00* Test Item Value Reference Range Comments WHITE BLOOD CELL (test code=WBC) 12.0 K/mm3 4.5-12.5 RED BLOOD CELL (test code=RBC) 3.13 mill/mm3 4.0-5.8 HEMOGLOBIN (test code=HGB) 9.5 gram/dL 13.0-17.5 HEMATOCRIT (test code=HCT) 28.9 % 42.0-52.0 MEAN CELL VOLUME (test code=MCV) 92.3 fL 80-98 MEAN CELL HGB (test code=MCH) 30.4 picogram 27.0-33.0 MEAN CELL HGB CONCETRATION (test code=MCHC) 32.9 gram/dL 33.0-36.0 RED CELL DISTRIBUTION WIDTH (test code=RDW) 14.2 % 11.6-16.2 RED CELL DISTRIBUTION WIDTH SD (test code=RDW-SD) 47.9 fL 37.0-51.0 PLATELET COUNT (test code=PLT) 113 K/mm3 150-450 MEAN PLATELET VOLUME (test code=MPV) 10.6 fL 6.7-11.0 IMMATURE GRANULOCYTE % (test code=IG%) 0.5 % 0.0-5.0 NUCLEATED RBC % (test code=NRBC%) 0.0 % 0-0 NEUTROPHIL # (test code=NT#) 8.54 K/mm3 1.8-7.7 IMMATURE GRANULOCYTE # (test code=IG#) 0.06 x10 3/uL 0-0.03 LYMPHOCYTE # (test code=LY#) 1.51 K/mm3 1.0-5.0 MONOCYTE # (test code=MO#) 1.84 K/mm3 0-0.8 EOSINOPHIL # (test code=EO#) 0.00 K/mm3 0.0-0.5 BASOPHIL # (test code=BA#) 0.02 K/mm3 0.0-0.2 NUCLEATED RBC # (test code=NRBC#) 0.00 K/mm3 0.0-0.1 MANUAL DIFF REQUIRED (test code=MDIFF) YES STAIN ACCEPTABILITY (test code=STN ACCEPTABLE) STAIN ACCEPTABLE TOTAL CELLS COUNTED (test code=TCC) 115 #CELLS SEGMENTED NEUTROPHILS (test code=SEG) 82.6 % 39-69 BAND NEUTROPHIL (test code=BAND) 0.9 % 0-10 LYMPHOCYTE (test code=LYMPH) 7.0 % 25-55 REACTIVE LYMPH (test code=RELYMPH) 0 % MONOCYTE (test code=MON) 9.5 % 0-10 EOSINOPHIL (test code=EOS) 0 % 0.0-5.0 BASOPHIL (test code=BASO) 0 % 0-1.0 METAMYELOCYTE (test code=META) 0 % 0-0 MYELOCYTE (test code=MYELO) 0 % 0.0-0.0 PROMYELOCYTE (test code=PROM) 0 % 0-0 POLYCHROMASIA (test code=POLC) 1+ POIKILOCYTOSIS (test code=POIK) 1+ ANISOCYTOSIS (test code=ANISO) 1+ ELLIPTOCYTES (test code=ELL) 1+ PLATELET ESTIMATE (test code=PLTEST) SLIGHTLY DECREASED PLATELET MORPHOLOGY (test code=PLTMORPH) NORMAL IMMATURE FORMS (test code=IMMAT) 0 % 0-0 CBC W/MANUAL [id number] 08:20:00* Test Item Value Reference Range Comments WHITE BLOOD CELL (test code=WBC) 12.0 K/mm3 4.5-12.5 RED BLOOD CELL (test code=RBC) 3.13 mill/mm3 4.0-5.8 HEMOGLOBIN (test code=HGB) 9.5 gram/dL 13.0-17.5 HEMATOCRIT (test code=HCT) 28.9 % 42.0-52.0 MEAN CELL VOLUME (test code=MCV) 92.3 fL 80-98 MEAN CELL HGB (test code=MCH) 30.4 picogram 27.0-33.0 MEAN CELL HGB CONCETRATION (test code=MCHC) 32.9 gram/dL 33.0-36.0 RED CELL DISTRIBUTION WIDTH (test code=RDW) 14.2 % 11.6-16.2 RED CELL DISTRIBUTION WIDTH SD (test code=RDW-SD) 47.9 fL 37.0-51.0 PLATELET COUNT (test code=PLT) 113 K/mm3 150-450 MEAN PLATELET VOLUME (test code=MPV) 10.6 fL 6.7-11.0 IMMATURE GRANULOCYTE % (test code=IG%) 0.5 % 0.0-5.0 NUCLEATED RBC % (test code=NRBC%) 0.0 % 0-0 NEUTROPHIL # (test code=NT#) 8.54 K/mm3 1.8-7.7 IMMATURE GRANULOCYTE # (test code=IG#) 0.06 x10 3/uL 0-0.03 LYMPHOCYTE # (test code=LY#) 1.51 K/mm3 1.0-5.0 MONOCYTE # (test code=MO#) 1.84 K/mm3 0-0.8 EOSINOPHIL # (test code=EO#) 0.00 K/mm3 0.0-0.5 BASOPHIL # (test code=BA#) 0.02 K/mm3 0.0-0.2 NUCLEATED RBC # (test code=NRBC#) 0.00 K/mm3 0.0-0.1 MANUAL DIFF REQUIRED (test code=MDIFF) YES STAIN ACCEPTABILITY (test code=STN ACCEPTABLE) TOTAL CELLS COUNTED (test code=TCC) #CELLS SEGMENTED NEUTROPHILS (test code=SEG) 82.6 % 39-69 BAND NEUTROPHIL (test code=BAND) 0.9 % 0-10 LYMPHOCYTE (test code=LYMPH) 7.0 % 25-55 REACTIVE LYMPH (test code=RELYMPH) 0 % MONOCYTE (test code=MON) 9.5 % 0-10 EOSINOPHIL (test code=EOS) 0 % 0.0-5.0 BASOPHIL (test code=BASO) 0 % 0-1.0 METAMYELOCYTE (test code=META) 0 % 0-0 MYELOCYTE (test code=MYELO) 0 % 0.0-0.0 PROMYELOCYTE (test code=PROM) 0 % 0-0 POLYCHROMASIA (test code=POLC) 1+ POIKILOCYTOSIS (test code=POIK) 1+ ANISOCYTOSIS (test code=ANISO) 1+ ELLIPTOCYTES (test code=ELL) 1+ PLATELET ESTIMATE (test code=PLTEST) SLIGHTLY DECREASED PLATELET MORPHOLOGY (test code=PLTMORPH) NORMAL IMMATURE FORMS (test code=IMMAT) 0 % 0-0 - XR CHEST 1 [id number] 07:21:00 FAX: Parag Andrade MD [place]: B St: ADM FAX: Erik Garcia MD [phone] FAX: Mimi George [phone] Name: CARLOS ALBERTOTADEO DARIUS [facility] : 1935 Age/S: 83/M [address] [facility] Unit #: [id number] Loc: V.S24 [place], [place] [address] Phys: Mimi Aguila Acct: [id number] Dis Date: Status: ADM IN PH ONE #: [phone] Exam Date: 10/05/2018528 FAX #: [phone] Reason: Post CAB EXAMS: CPT CODE: [id number] XR CHEST 1 V 71391 CLINICAL HISTO RY: Post CAB; chest pain; second-degree heart block TECHNIQUE: AP chest x-ray COMPARISON: Previous day. IMPRESSION: Left chest tube in stable position without pneumothorax. Left basilar atelectasis. No pleural effusion. Cardiomegaly. Sternotomy/CABG. 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 ET tube has been removed. Right Bronx-Go catheter positioned within the distal right pulmonary artery. Right central venous catheter p ositioned in the SVC. Mediastinal drain. Electronically Si gned by Catarina Hansen D.O. on 10/05/2018 at 0721 Reported an d signed by: Catarina Hansen D.O. CC: Parag Garsia; Catracho Elizabeth MD; Mmii Aguila Technologist: JEANNIE CROWDER JR Trnscrd Date/Time/By: 10/05/2018 (0721) : By: [email or web address] PAGE 1 Signed Report BASIC METABOLIC [id number] 06:56:00* Test Item Value Reference Range Comments SODIUM (test code=NA) 142 mmol/L 136-145 POTASSIUM (test code=K) 4.1 mmol/L 3.5-5.1 CHLORIDE (test code=CL) 112.0 mmol/L 98-107 CARBON DIOXIDE (test code=CO2) 23.0 mmol/L 21-32 ANION GAP (test code=GAP) 11.1 10-20 GLUCOSE (test code=GLU) 132 mg/dL 74-106 BLOOD UREA NITROGEN (test code=BUN) 19 mg/dL 7-18 GLOMERULAR FILTRATION RATE (test code=GFR) > 60 mL/min >=60 Estimated GFR by using Modified MDRD formula.Chronic kidney disease is defined as either kidney damageor GFR <60 mL/min/1.73 m2 for >3 months. CREATININE (test code=CREAT) 0.90 mg/dL 0.7-1.3 BUN/CREATININE RATIO (test code=BUN/CREA) 20.5 10-20 CALCIUM (test code=CA) 8.0 mg/dL 8.5-10.1 [id number] 06:56:00* Test Item Value Reference Range Comments PHOSPHORUS (test code=PHOS) 3.3 mg/dL 2.5-4.9 [id number] 06:56:00* Test Item Value Reference Range Comments MAGNESIUM (test code=MAG) 2.3 mg/dL 1.8-2.4 BASIC METABOLIC [id number] 06:50:00* Test Item Value Reference Range Comments SODIUM (test code=NA) 142 mmol/L 136-145 POTASSIUM (test code=K) 4.1 mmol/L 3.5-5.1 CHLORIDE (test code=CL) 112.0 mmol/L 98-107 CARBON DIOXIDE (test code=CO2) mmol/L 21-32 ANION GAP (test code=GAP) 10-20 GLUCOSE (test code=GLU) mg/dL 74-106 BLOOD UREA NITROGEN (test code=BUN) mg/dL 7-18 GLOMERULAR FILTRATION RATE (test code=GFR) mL/min >=60 CREATININE (test code=CREAT) mg/dL 0.7-1.3 BUN/CREATININE RATIO (test code=BUN/CREA) 10-20 CALCIUM (test code=CA) mg/dL 8.5-10.1 [id number] 06:50:00* Test Item Value Reference Range Comments PHOSPHORUS (test code=PHOS) mg/dL 2.5-4.9 [id number] 06:50:00* Test Item Value Reference Range Comments MAGNESIUM (test code=MAG) mg/dL 1.8-2.4 PROTHROMBIN [id number] 06:31:00* Test Item Value Reference Range Comments PROTHROMBIN TIME PATIENT (test code=PTP) 16.8 seconds 9.0-14.0 INTERNATIONAL NORMAL RATIO (test code=INR) 1.4 0.8-1.2 The therapeutic range for oral anticoagulant therapy formost indications is an international normalized ratio (INR)of between 2.0 and 3.0. The recommended therapeutic INRrange for various clinical situations is listed below: Clinical Situation INR range Pulmonary e mbolism treatment (2.0-3.0)Venous thrombosis treatmentVenous thrombosis prophylaxis (high risk surgery)Prevention of systemic embolism from: Acute myocardial infarction Valvular heart disease Atrial fibrillation Mechanical prosthetic heart valves (2.5-3.5) IS PATIENT ON ANTICOAGULANTS? NTHROMBOPLASTIN TIME [id number] 06:31:00* Test Item Value Reference Range Comments THROMBOPLASTIN TIME PARTIAL (test code=PTT) 29.9 seconds 25.0-36.5 IS PATIENT ON ANTICOAGULANTS? NCBC W/MANUAL [id number] 06:18:00* Test Item Value Reference Range Comments WHITE BLOOD CELL (test code=WBC) 12.0 K/mm3 4.5-12.5 RED BLOOD CELL (test code=RBC) 3.13 mill/mm3 4.0-5.8 HEMOGLOBIN (test code=HGB) 9.5 gram/dL 13.0-17.5 HEMATOCRIT (test code=HCT) 28.9 % 42.0-52.0 MEAN CELL VOLUME (test code=MCV) 92.3 fL 80-98 MEAN CELL HGB (test code=MCH) 30.4 picogram 27.0-33.0 MEAN CELL HGB CONCETRATION (test code=MCHC) 32.9 gram/dL 33.0-36.0 RED CELL DISTRIBUTION WIDTH (test code=RDW) 14.2 % 11.6-16.2 RED CELL DISTRIBUTION WIDTH SD (test code=RDW-SD) 47.9 fL 37.0-51.0 PLATELET COUNT (test code=PLT) 113 K/mm3 150-450 MEAN PLATELET VOLUME (test code=MPV) 10.6 fL 6.7-11.0 IMMATURE GRANULOCYTE % (test code=IG%) 0.5 % 0.0-5.0 NUCLEATED RBC % (test code=NRBC%) 0.0 % 0-0 NEUTROPHIL # (test code=NT#) 8.54 K/mm3 1.8-7.7 IMMATURE GRANULOCYTE # (test code=IG#) 0.06 x10 3/uL 0-0.03 LYMPHOCYTE # (test code=LY#) 1.51 K/mm3 1.0-5.0 MONOCYTE # (test code=MO#) 1.84 K/mm3 0-0.8 EOSINOPHIL # (test code=EO#) 0.00 K/mm3 0.0-0.5 BASOPHIL # (test code=BA#) 0.02 K/mm3 0.0-0.2 NUCLEATED RBC # (test code=NRBC#) 0.00 K/mm3 0.0-0.1 MANUAL DIFF REQUIRED (test code=MDIFF) YES STAIN ACCEPTABILITY (test code=STN ACCEPTABLE) TOTAL CELLS COUNTED (test code=TCC) #CELLS SEGMENTED NEUTROPHILS (test code=SEG) % 39-69 LYMPHOCYTE (test code=LYMPH) % 25-55 MONOCYTE (test code=MON) % 0-10 EOSINOPHIL (test code=EOS) % 0.0-5.0 CABOT RINGS (test code=CAB) MORPHOLOGY COMMENT (test code=MOC) PLATELET ESTIMATE (test code=PLTEST) PLATELET MORPHOLOGY (test code=PLTMORPH) CBC W/MANUAL [id number] 06:18:00* Test Item Value Reference Range Comments WHITE BLOOD CELL (test code=WBC) 12.0 K/mm3 4.5-12.5 RED BLOOD CELL (test code=RBC) 3.13 mill/mm3 4.0-5.8 HEMOGLOBIN (test code=HGB) 9.5 gram/dL 13.0-17.5 HEMATOCRIT (test code=HCT) 28.9 % 42.0-52.0 MEAN CELL VOLUME (test code=MCV) 92.3 fL 80-98 MEAN CELL HGB (test code=MCH) 30.4 picogram 27.0-33.0 MEAN CELL HGB CONCETRATION (test code=MCHC) 32.9 gram/dL 33.0-36.0 RED CELL DISTRIBUTION WIDTH (test code=RDW) 14.2 % 11.6-16.2 RED CELL DISTRIBUTION WIDTH SD (test code=RDW-SD) 47.9 fL 37.0-51.0 PLATELET COUNT (test code=PLT) 113 K/mm3 150-450 MEAN PLATELET VOLUME (test code=MPV) 10.6 fL 6.7-11.0 IMMATURE GRANULOCYTE % (test code=IG%) 0.5 % 0.0-5.0 NUCLEATED RBC % (test code=NRBC%) 0.0 % 0-0 NEUTROPHIL # (test code=NT#) 8.54 K/mm3 1.8-7.7 IMMATURE GRANULOCYTE # (test code=IG#) 0.06 x10 3/uL 0-0.03 LYMPHOCYTE # (test code=LY#) 1.51 K/mm3 1.0-5.0 MONOCYTE # (test code=MO#) 1.84 K/mm3 0-0.8 EOSINOPHIL # (test code=EO#) 0.00 K/mm3 0.0-0.5 BASOPHIL # (test code=BA#) 0.02 K/mm3 0.0-0.2 NUCLEATED RBC # (test code=NRBC#) 0.00 K/mm3 0.0-0.1 MANUAL DIFF REQUIRED (test code=MDIFF) YES STAIN ACCEPTABILITY (test code=STN ACCEPTABLE) TOTAL CELLS COUNTED (test code=TCC) #CELLS SEGMENTED NEUTROPHILS (test code=SEG) % 39-69 LYMPHOCYTE (test code=LYMPH) % 25-55 MONOCYTE (test code=MON) % 0-10 EOSINOPHIL (test code=EOS) % 0.0-5.0 MORPHOLOGY COMMENT (test code=MOC) PLATELET ESTIMATE (test code=PLTEST) PLATELET MORPHOLOGY (test code=PLTMORPH) CBC W/MANUAL [id number] 06:18:00* Test Item Value Reference Range Comments WHITE BLOOD CELL (test code=WBC) 12.0 K/mm3 4.5-12.5 RED BLOOD CELL (test code=RBC) 3.13 mill/mm3 4.0-5.8 HEMOGLOBIN (test code=HGB) 9.5 gram/dL 13.0-17.5 HEMATOCRIT (test code=HCT) 28.9 % 42.0-52.0 MEAN CELL VOLUME (test code=MCV) 92.3 fL 80-98 MEAN CELL HGB (test code=MCH) 30.4 picogram 27.0-33.0 MEAN CELL HGB CONCETRATION (test code=MCHC) 32.9 gram/dL 33.0-36.0 RED CELL DISTRIBUTION WIDTH (test code=RDW) 14.2 % 11.6-16.2 RED CELL DISTRIBUTION WIDTH SD (test code=RDW-SD) 47.9 fL 37.0-51.0 PLATELET COUNT (test code=PLT) 113 K/mm3 150-450 MEAN PLATELET VOLUME (test code=MPV) 10.6 fL 6.7-11.0 IMMATURE GRANULOCYTE % (test code=IG%) 0.5 % 0.0-5.0 NUCLEATED RBC % (test code=NRBC%) 0.0 % 0-0 NEUTROPHIL # (test code=NT#) 8.54 K/mm3 1.8-7.7 IMMATURE GRANULOCYTE # (test code=IG#) 0.06 x10 3/uL 0-0.03 LYMPHOCYTE # (test code=LY#) 1.51 K/mm3 1.0-5.0 MONOCYTE # (test code=MO#) 1.84 K/mm3 0-0.8 EOSINOPHIL # (test code=EO#) 0.00 K/mm3 0.0-0.5 BASOPHIL # (test code=BA#) 0.02 K/mm3 0.0-0.2 NUCLEATED RBC # (test code=NRBC#) 0.00 K/mm3 0.0-0.1 MANUAL DIFF REQUIRED (test code=MDIFF) YES STAIN ACCEPTABILITY (test code=STN ACCEPTABLE) TOTAL CELLS COUNTED (test code=TCC) #CELLS SEGMENTED NEUTROPHILS (test code=SEG) % 39-69 LYMPHOCYTE (test code=LYMPH) % 25-55 MONOCYTE (test code=MON) % 0-10 MORPHOLOGY COMMENT (test code=MOC) PLATELET ESTIMATE (test code=PLTEST) PLATELET MORPHOLOGY (test code=PLTMORPH) CBC W/MANUAL [id number] 06:17:00* Test Item Value Reference Range Comments WHITE BLOOD CELL (test code=WBC) 12.0 K/mm3 4.5-12.5 RED BLOOD CELL (test code=RBC) 3.13 mill/mm3 4.0-5.8 HEMOGLOBIN (test code=HGB) 9.5 gram/dL 13.0-17.5 HEMATOCRIT (test code=HCT) 28.9 % 42.0-52.0 MEAN CELL VOLUME (test code=MCV) 92.3 fL 80-98 MEAN CELL HGB (test code=MCH) 30.4 picogram 27.0-33.0 MEAN CELL HGB CONCETRATION (test code=MCHC) 32.9 gram/dL 33.0-36.0 RED CELL DISTRIBUTION WIDTH (test code=RDW) 14.2 % 11.6-16.2 RED CELL DISTRIBUTION WIDTH SD (test code=RDW-SD) 47.9 fL 37.0-51.0 PLATELET COUNT (test code=PLT) 113 K/mm3 150-450 MEAN PLATELET VOLUME (test code=MPV) 10.6 fL 6.7-11.0 IMMATURE GRANULOCYTE % (test code=IG%) 0.5 % 0.0-5.0 NUCLEATED RBC % (test code=NRBC%) 0.0 % 0-0 NEUTROPHIL # (test code=NT#) 8.54 K/mm3 1.8-7.7 IMMATURE GRANULOCYTE # (test code=IG#) 0.06 x10 3/uL 0-0.03 LYMPHOCYTE # (test code=LY#) 1.51 K/mm3 1.0-5.0 MONOCYTE # (test code=MO#) 1.84 K/mm3 0-0.8 EOSINOPHIL # (test code=EO#) 0.00 K/mm3 0.0-0.5 BASOPHIL # (test code=BA#) 0.02 K/mm3 0.0-0.2 NUCLEATED RBC # (test code=NRBC#) 0.00 K/mm3 0.0-0.1 MANUAL DIFF REQUIRED (test code=MDIFF) YES STAIN ACCEPTABILITY (test code=STN ACCEPTABLE) TOTAL CELLS COUNTED (test code=TCC) #CELLS SEGMENTED NEUTROPHILS (test code=SEG) % 39-69 LYMPHOCYTE (test code=LYMPH) % 25-55 MONOCYTE (test code=MON) % 0-10 EOSINOPHIL (test code=EOS) % 0.0-5.0 CABOT RINGS (test code=CAB) MORPHOLOGY COMMENT (test code=MOC) PLATELET ESTIMATE (test code=PLTEST) PLATELET MORPHOLOGY (test code=PLTMORPH) CBC W/MANUAL [id number] 06:17:00* Test Item Value Reference Range Comments WHITE BLOOD CELL (test code=WBC) 12.0 K/mm3 4.5-12.5 RED BLOOD CELL (test code=RBC) 3.13 mill/mm3 4.0-5.8 HEMOGLOBIN (test code=HGB) 9.5 gram/dL 13.0-17.5 HEMATOCRIT (test code=HCT) 28.9 % 42.0-52.0 MEAN CELL VOLUME (test code=MCV) 92.3 fL 80-98 MEAN CELL HGB (test code=MCH) 30.4 picogram 27.0-33.0 MEAN CELL HGB CONCETRATION (test code=MCHC) 32.9 gram/dL 33.0-36.0 RED CELL DISTRIBUTION WIDTH (test code=RDW) 14.2 % 11.6-16.2 RED CELL DISTRIBUTION WIDTH SD (test code=RDW-SD) 47.9 fL 37.0-51.0 PLATELET COUNT (test code=PLT) 113 K/mm3 150-450 MEAN PLATELET VOLUME (test code=MPV) 10.6 fL 6.7-11.0 IMMATURE GRANULOCYTE % (test code=IG%) 0.5 % 0.0-5.0 NUCLEATED RBC % (test code=NRBC%) 0.0 % 0-0 NEUTROPHIL # (test code=NT#) 8.54 K/mm3 1.8-7.7 IMMATURE GRANULOCYTE # (test code=IG#) 0.06 x10 3/uL 0-0.03 LYMPHOCYTE # (test code=LY#) 1.51 K/mm3 1.0-5.0 MONOCYTE # (test code=MO#) 1.84 K/mm3 0-0.8 EOSINOPHIL # (test code=EO#) 0.00 K/mm3 0.0-0.5 BASOPHIL # (test code=BA#) 0.02 K/mm3 0.0-0.2 NUCLEATED RBC # (test code=NRBC#) 0.00 K/mm3 0.0-0.1 MANUAL DIFF REQUIRED (test code=MDIFF) YES STAIN ACCEPTABILITY (test code=STN ACCEPTABLE) TOTAL CELLS COUNTED (test code=TCC) #CELLS SEGMENTED NEUTROPHILS (test code=SEG) % 39-69 LYMPHOCYTE (test code=LYMPH) % 25-55 MONOCYTE (test code=MON) % 0-10 EOSINOPHIL (test code=EOS) % 0.0-5.0 CABOT RINGS (test code=CAB) MORPHOLOGY COMMENT (test code=MOC) PLATELET ESTIMATE (test code=PLTEST) PLATELET MORPHOLOGY (test code=PLTMORPH) [id number] 05:57:00* Test Item Value Reference Range Comments GLUBED (test code=GLUBED) 126 mg/dL 74-106 Performed by certified directory assistance operator at [facility] [id number] 05:57:00* Test Item Value Reference Range Comments GLUBED (test code=GLUBED) 129 mg/dL 74-106 Performed by certified directory assistance operator at [facility] [id number] 05:57:00* Test Item Value Reference Range Comments GLUBED (test code=GLUBED) 143 mg/dL 74-106 Performed by certified directory assistance operator at [facility] [id number] 05:57:00* Test Item Value Reference Range Comments GLUBED (test code=GLUBED) 135 mg/dL 74-106 Performed by certified directory assistance operator at [facility] [id number] 05:57:00* Test Item Value Reference Range Comments GLUBED (test code=GLUBED) 124 mg/dL 74-106 Performed by certified directory assistance operator at [facility] [id number] 05:57:00* Test Item Value Reference Range Comments GLUBED (test code=GLUBED) 139 mg/dL 74-106 Performed by certified directory assistance operator at [facility] [id number] 05:57:00* Test Item Value Reference Range Comments GLUBED (test code=GLUBED) 137 mg/dL 74-106 Performed by certified directory assistance operator at [facility] [id number] 05:57:00* Test Item Value Reference Range Comments GLUBED (test code=GLUBED) 145 mg/dL 74-106 Performed by certified directory assistance operator at [facility] BASIC METABOLIC [id number] 02:22:00* Test Item Value Reference Range Comments SODIUM (test code=NA) 145 mmol/L 136-145 POTASSIUM (test code=K) 4.4 mmol/L 3.5-5.1 CHLORIDE (test code=CL) 114.0 mmol/L 98-107 CARBON DIOXIDE (test code=CO2) 23.0 mmol/L 21-32 ANION GAP (test code=GAP) 12.4 10-20 GLUCOSE (test code=GLU) 134 mg/dL 74-106 BLOOD UREA NITROGEN (test code=BUN) 18 mg/dL 7-18 GLOMERULAR FILTRATION RATE (test code=GFR) > 60 mL/min >=60 Estimated GFR by using Modified MDRD formula.Chronic kidney disease is defined as either kidney damageor GFR <60 mL/min/1.73 m2 for >3 months. CREATININE (test code=CREAT) 0.90 mg/dL 0.7-1.3 BUN/CREATININE RATIO (test code=BUN/CREA) 20.3 10-20 CALCIUM (test code=CA) 7.7 mg/dL 8.5-10.1 [id number] 02:22:00* Test Item Value Reference Range Comments PHOSPHORUS (test code=PHOS) 3.3 mg/dL 2.5-4.9 [id number] 02:22:00* Test Item Value Reference Range Comments MAGNESIUM (test code=MAG) 2.2 mg/dL 1.8-2.4 [id number] 02:22:00* Test Item Value Reference Range Comments CKMB (test code=CKMBT) 9.0 ng/mL 0-6.0 [id number] 02:22:00* Test Item Value Reference Range Comments TROPONIN-I (test code=TROPI) 1.740 ng/mL 0-0.045 Results called to [id number] by DAREN 10/05/18 0212Critical results verified and read back by Nurse? Y CALCIUM [id number] 02:22:00* Test Item Value Reference Range Comments CALCIUM IONIZED (test code=TANGELA) 1.20 mmol/L 1.12-1.32 BASIC METABOLIC [id number] 02:12:00* Test Item Value Reference Range Comments SODIUM (test code=NA) 145 mmol/L 136-145 POTASSIUM (test code=K) 4.4 mmol/L 3.5-5.1 CHLORIDE (test code=CL) 114.0 mmol/L 98-107 CARBON DIOXIDE (test code=CO2) 23.0 mmol/L 21-32 ANION GAP (test code=GAP) 12.4 10-20 GLUCOSE (test code=GLU) 134 mg/dL 74-106 BLOOD UREA NITROGEN (test code=BUN) 18 mg/dL 7-18 GLOMERULAR FILTRATION RATE (test code=GFR) > 60 mL/min >=60 Estimated GFR by using Modified MDRD formula.Chronic kidney disease is defined as either kidney damageor GFR <60 mL/min/1.73 m2 for >3 months. CREATININE (test code=CREAT) 0.90 mg/dL 0.7-1.3 BUN/CREATININE RATIO (test code=BUN/CREA) 20.3 10-20 CALCIUM (test code=CA) 7.7 mg/dL 8.5-10.1 [id number] 02:12:00* Test Item Value Reference Range Comments PHOSPHORUS (test code=PHOS) 3.3 mg/dL 2.5-4.9 [id number] 02:12:00* Test Item Value Reference Range Comments MAGNESIUM (test code=MAG) 2.2 mg/dL 1.8-2.4 [id number] 02:12:00* Test Item Value Reference Range Comments CKMB (test code=CKMBT) 9.0 ng/mL 0-6.0 [id number] 02:12:00* Test Item Value Reference Range Comments TROPONIN-I (test code=TROPI) 1.740 ng/mL 0-0.045 Results called to [id number] by DAREN 10/05/18 0212Critical results verified and read back by Nurse? Y CALCIUM [id number] 02:12:00* Test Item Value Reference Range Comments CALCIUM IONIZED (test code=TANGELA) mmol/L 1.12-1.32 CREATINE KINASE (CK)2018-10-05 02:09:00* Test Item Value Reference Range Comments CREATINE KINASE (CK) (test code=CK) 505 IUnit/L 26-208 BASIC METABOLIC [id number] 01:56:00* Test Item Value Reference Range Comments SODIUM (test code=NA) 145 mmol/L 136-145 POTASSIUM (test code=K) 4.4 mmol/L 3.5-5.1 CHLORIDE (test code=CL) 114.0 mmol/L 98-107 CARBON DIOXIDE (test code=CO2) mmol/L 21-32 ANION GAP (test code=GAP) 10-20 GLUCOSE (test code=GLU) mg/dL 74-106 BLOOD UREA NITROGEN (test code=BUN) mg/dL 7-18 GLOMERULAR FILTRATION RATE (test code=GFR) mL/min >=60 CREATININE (test code=CREAT) mg/dL 0.7-1.3 BUN/CREATININE RATIO (test code=BUN/CREA) 10-20 CALCIUM (test code=CA) mg/dL 8.5-10.1 [id number] 01:56:00* Test Item Value Reference Range Comments PHOSPHORUS (test code=PHOS) mg/dL 2.5-4.9 [id number] 01:56:00* Test Item Value Reference Range Comments MAGNESIUM (test code=MAG) mg/dL 1.8-2.4 [id number] 01:56:00* Test Item Value Reference Range Comments CKMB (test code=CKMBT) ng/mL 0-6.0 [id number] 01:56:00* Test Item Value Reference Range Comments TROPONIN-I (test code=TROPI) ng/mL 0-0.045 CALCIUM [id number] 01:56:00* Test Item Value Reference Range Comments CALCIUM IONIZED (test code=TANGELA) mmol/L 1.12-1.32 CBC W/AUTO [id number] 01:47:00* Test Item Value Reference Range Comments WHITE BLOOD CELL (test code=WBC) 11.6 K/mm3 4.5-12.5 RED BLOOD CELL (test code=RBC) 3.12 mill/mm3 4.0-5.8 HEMOGLOBIN (test code=HGB) 9.6 gram/dL 13.0-17.5 HEMATOCRIT (test code=HCT) 28.9 % 42.0-52.0 MEAN CELL VOLUME (test code=MCV) 92.6 fL 80-98 MEAN CELL HGB (test code=MCH) 30.8 picogram 27.0-33.0 MEAN CELL HGB CONCETRATION (test code=MCHC) 33.2 gram/dL 33.0-36.0 RED CELL DISTRIBUTION WIDTH (test code=RDW) 14.1 % 11.6-16.2 RED CELL DISTRIBUTION WIDTH SD (test code=RDW-SD) 48.1 fL 37.0-51.0 PLATELET COUNT (test code=PLT) 118 K/mm3 150-450 MEAN PLATELET VOLUME (test code=MPV) 10.9 fL 6.7-11.0 IMMATURE GRANULOCYTE % (test code=IG%) 0.3 % 0.0-5.0 NUCLEATED RBC % (test code=NRBC%) 0.0 % 0-0 NEUTROPHIL # (test code=NT#) 8.81 K/mm3 1.8-7.7 IMMATURE GRANULOCYTE # (test code=IG#) 0.03 x10 3/uL 0-0.03 LYMPHOCYTE # (test code=LY#) 1.22 K/mm3 1.0-5.0 MONOCYTE # (test code=MO#) 1.53 K/mm3 0-0.8 EOSINOPHIL # (test code=EO#) 0.00 K/mm3 0.0-0.5 BASOPHIL # (test code=BA#) 0.01 K/mm3 0.0-0.2 NUCLEATED RBC # (test code=NRBC#) 0.00 K/mm3 0.0-0.1 MANUAL DIFF REQUIRED (test code=MDIFF) YES WBC [id number] 01:47:00* Test Item Value Reference Range Comments STAIN ACCEPTABILITY (test code=STN ACCEPTABLE) STAIN ACCEPTABLE TOTAL CELLS COUNTED (test code=TCC) 115 #CELLS SEGMENTED NEUTROPHILS (test code=SEG) 85.2 % 39-69 BAND NEUTROPHIL (test code=BAND) 2.6 % 0-10 LYMPHOCYTE (test code=LYMPH) 9.6 % 25-55 REACTIVE LYMPH (test code=RELYMPH) 0 % MONOCYTE (test code=MON) 2.6 % 0-10 EOSINOPHIL (test code=EOS) 0 % 0.0-5.0 BASOPHIL (test code=BASO) 0 % 0-1.0 METAMYELOCYTE (test code=META) 0 % 0-0 MYELOCYTE (test code=MYELO) 0 % 0.0-0.0 PROMYELOCYTE (test code=PROM) 0 % 0-0 PLATELET ESTIMATE (test code=PLTEST) DECREASED PLATELET MORPHOLOGY (test code=PLTMORPH) NORMAL IMMATURE FORMS (test code=IMMAT) 0 % 0-0 CBC W/AUTO [id number] 01:46:00* Test Item Value Reference Range Comments WHITE BLOOD CELL (test code=WBC) 11.6 K/mm3 4.5-12.5 RED BLOOD CELL (test code=RBC) 3.12 mill/mm3 4.0-5.8 HEMOGLOBIN (test code=HGB) 9.6 gram/dL 13.0-17.5 HEMATOCRIT (test code=HCT) 28.9 % 42.0-52.0 MEAN CELL VOLUME (test code=MCV) 92.6 fL 80-98 MEAN CELL HGB (test code=MCH) 30.8 picogram 27.0-33.0 MEAN CELL HGB CONCETRATION (test code=MCHC) 33.2 gram/dL 33.0-36.0 RED CELL DISTRIBUTION WIDTH (test code=RDW) 14.1 % 11.6-16.2 RED CELL DISTRIBUTION WIDTH SD (test code=RDW-SD) 48.1 fL 37.0-51.0 PLATELET COUNT (test code=PLT) 118 K/mm3 150-450 MEAN PLATELET VOLUME (test code=MPV) 10.9 fL 6.7-11.0 IMMATURE GRANULOCYTE % (test code=IG%) 0.3 % 0.0-5.0 NUCLEATED RBC % (test code=NRBC%) 0.0 % 0-0 NEUTROPHIL # (test code=NT#) 8.81 K/mm3 1.8-7.7 IMMATURE GRANULOCYTE # (test code=IG#) 0.03 x10 3/uL 0-0.03 LYMPHOCYTE # (test code=LY#) 1.22 K/mm3 1.0-5.0 MONOCYTE # (test code=MO#) 1.53 K/mm3 0-0.8 EOSINOPHIL # (test code=EO#) 0.00 K/mm3 0.0-0.5 BASOPHIL # (test code=BA#) 0.01 K/mm3 0.0-0.2 NUCLEATED RBC # (test code=NRBC#) 0.00 K/mm3 0.0-0.1 MANUAL DIFF REQUIRED (test code=MDIFF) YES WBC [id number] 01:46:00* Test Item Value Reference Range Comments STAIN ACCEPTABILITY (test code=STN ACCEPTABLE) TOTAL CELLS COUNTED (test code=TCC) #CELLS SEGMENTED NEUTROPHILS (test code=SEG) % 39-69 LYMPHOCYTE (test code=LYMPH) % 25-55 MONOCYTE (test code=MON) % 0-10 EOSINOPHIL (test code=EOS) % 0.0-5.0 CABOT RINGS (test code=CAB) MORPHOLOGY COMMENT (test code=MOC) PLATELET ESTIMATE (test code=PLTEST) PLATELET MORPHOLOGY (test code=PLTMORPH) CBC W/AUTO [id number] 01:46:00* Test Item Value Reference Range Comments WHITE BLOOD CELL (test code=WBC) 11.6 K/mm3 4.5-12.5 RED BLOOD CELL (test code=RBC) 3.12 mill/mm3 4.0-5.8 HEMOGLOBIN (test code=HGB) 9.6 gram/dL 13.0-17.5 HEMATOCRIT (test code=HCT) 28.9 % 42.0-52.0 MEAN CELL VOLUME (test code=MCV) 92.6 fL 80-98 MEAN CELL HGB (test code=MCH) 30.8 picogram 27.0-33.0 MEAN CELL HGB CONCETRATION (test code=MCHC) 33.2 gram/dL 33.0-36.0 RED CELL DISTRIBUTION WIDTH (test code=RDW) 14.1 % 11.6-16.2 RED CELL DISTRIBUTION WIDTH SD (test code=RDW-SD) 48.1 fL 37.0-51.0 PLATELET COUNT (test code=PLT) 118 K/mm3 150-450 MEAN PLATELET VOLUME (test code=MPV) 10.9 fL 6.7-11.0 IMMATURE GRANULOCYTE % (test code=IG%) 0.3 % 0.0-5.0 NUCLEATED RBC % (test code=NRBC%) 0.0 % 0-0 NEUTROPHIL # (test code=NT#) 8.81 K/mm3 1.8-7.7 IMMATURE GRANULOCYTE # (test code=IG#) 0.03 x10 3/uL 0-0.03 LYMPHOCYTE # (test code=LY#) 1.22 K/mm3 1.0-5.0 MONOCYTE # (test code=MO#) 1.53 K/mm3 0-0.8 EOSINOPHIL # (test code=EO#) 0.00 K/mm3 0.0-0.5 BASOPHIL # (test code=BA#) 0.01 K/mm3 0.0-0.2 NUCLEATED RBC # (test code=NRBC#) 0.00 K/mm3 0.0-0.1 MANUAL DIFF REQUIRED (test code=MDIFF) YES WBC [id number] 01:46:00* Test Item Value Reference Range Comments STAIN ACCEPTABILITY (test code=STN ACCEPTABLE) TOTAL CELLS COUNTED (test code=TCC) #CELLS SEGMENTED NEUTROPHILS (test code=SEG) % 39-69 LYMPHOCYTE (test code=LYMPH) % 25-55 MONOCYTE (test code=MON) % 0-10 EOSINOPHIL (test code=EOS) % 0.0-5.0 CABOT RINGS (test code=CAB) MORPHOLOGY COMMENT (test code=MOC) PLATELET ESTIMATE (test code=PLTEST) PLATELET MORPHOLOGY (test code=PLTMORPH) CBC W/AUTO [id number] 01:46:00* Test Item Value Reference Range Comments WHITE BLOOD CELL (test code=WBC) 11.6 K/mm3 4.5-12.5 RED BLOOD CELL (test code=RBC) 3.12 mill/mm3 4.0-5.8 HEMOGLOBIN (test code=HGB) 9.6 gram/dL 13.0-17.5 HEMATOCRIT (test code=HCT) 28.9 % 42.0-52.0 MEAN CELL VOLUME (test code=MCV) 92.6 fL 80-98 MEAN CELL HGB (test code=MCH) 30.8 picogram 27.0-33.0 MEAN CELL HGB CONCETRATION (test code=MCHC) 33.2 gram/dL 33.0-36.0 RED CELL DISTRIBUTION WIDTH (test code=RDW) 14.1 % 11.6-16.2 RED CELL DISTRIBUTION WIDTH SD (test code=RDW-SD) 48.1 fL 37.0-51.0 PLATELET COUNT (test code=PLT) 118 K/mm3 150-450 MEAN PLATELET VOLUME (test code=MPV) 10.9 fL 6.7-11.0 IMMATURE GRANULOCYTE % (test code=IG%) 0.3 % 0.0-5.0 NUCLEATED RBC % (test code=NRBC%) 0.0 % 0-0 NEUTROPHIL # (test code=NT#) 8.81 K/mm3 1.8-7.7 IMMATURE GRANULOCYTE # (test code=IG#) 0.03 x10 3/uL 0-0.03 LYMPHOCYTE # (test code=LY#) 1.22 K/mm3 1.0-5.0 MONOCYTE # (test code=MO#) 1.53 K/mm3 0-0.8 EOSINOPHIL # (test code=EO#) 0.00 K/mm3 0.0-0.5 BASOPHIL # (test code=BA#) 0.01 K/mm3 0.0-0.2 NUCLEATED RBC # (test code=NRBC#) 0.00 K/mm3 0.0-0.1 MANUAL DIFF REQUIRED (test code=MDIFF) YES WBC [id number] 01:46:00* Test Item Value Reference Range Comments STAIN ACCEPTABILITY (test code=STN ACCEPTABLE) TOTAL CELLS COUNTED (test code=TCC) #CELLS SEGMENTED NEUTROPHILS (test code=SEG) % 39-69 LYMPHOCYTE (test code=LYMPH) % 25-55 MONOCYTE (test code=MON) % 0-10 EOSINOPHIL (test code=EOS) % 0.0-5.0 MORPHOLOGY COMMENT (test code=MOC) PLATELET ESTIMATE (test code=PLTEST) PLATELET MORPHOLOGY (test code=PLTMORPH) CBC W/AUTO [id number] 01:46:00* Test Item Value Reference Range Comments WHITE BLOOD CELL (test code=WBC) 11.6 K/mm3 4.5-12.5 RED BLOOD CELL (test code=RBC) 3.12 mill/mm3 4.0-5.8 HEMOGLOBIN (test code=HGB) 9.6 gram/dL 13.0-17.5 HEMATOCRIT (test code=HCT) 28.9 % 42.0-52.0 MEAN CELL VOLUME (test code=MCV) 92.6 fL 80-98 MEAN CELL HGB (test code=MCH) 30.8 picogram 27.0-33.0 MEAN CELL HGB CONCETRATION (test code=MCHC) 33.2 gram/dL 33.0-36.0 RED CELL DISTRIBUTION WIDTH (test code=RDW) 14.1 % 11.6-16.2 RED CELL DISTRIBUTION WIDTH SD (test code=RDW-SD) 48.1 fL 37.0-51.0 PLATELET COUNT (test code=PLT) 118 K/mm3 150-450 MEAN PLATELET VOLUME (test code=MPV) 10.9 fL 6.7-11.0 IMMATURE GRANULOCYTE % (test code=IG%) 0.3 % 0.0-5.0 NUCLEATED RBC % (test code=NRBC%) 0.0 % 0-0 NEUTROPHIL # (test code=NT#) 8.81 K/mm3 1.8-7.7 IMMATURE GRANULOCYTE # (test code=IG#) 0.03 x10 3/uL 0-0.03 LYMPHOCYTE # (test code=LY#) 1.22 K/mm3 1.0-5.0 MONOCYTE # (test code=MO#) 1.53 K/mm3 0-0.8 EOSINOPHIL # (test code=EO#) 0.00 K/mm3 0.0-0.5 BASOPHIL # (test code=BA#) 0.01 K/mm3 0.0-0.2 NUCLEATED RBC # (test code=NRBC#) 0.00 K/mm3 0.0-0.1 MANUAL DIFF REQUIRED (test code=MDIFF) YES WBC [id number] 01:46:00* Test Item Value Reference Range Comments STAIN ACCEPTABILITY (test code=STN ACCEPTABLE) TOTAL CELLS COUNTED (test code=TCC) #CELLS SEGMENTED NEUTROPHILS (test code=SEG) % 39-69 LYMPHOCYTE (test code=LYMPH) % 25-55 MONOCYTE (test code=MON) % 0-10 MORPHOLOGY COMMENT (test code=MOC) PLATELET ESTIMATE (test code=PLTEST) PLATELET MORPHOLOGY (test code=PLTMORPH) CBC W/AUTO [id number] 01:17:00* Test Item Value Reference Range Comments WHITE BLOOD CELL (test code=WBC) 11.6 K/mm3 4.5-12.5 RED BLOOD CELL (test code=RBC) 3.12 mill/mm3 4.0-5.8 HEMOGLOBIN (test code=HGB) 9.6 gram/dL 13.0-17.5 HEMATOCRIT (test code=HCT) 28.9 % 42.0-52.0 MEAN CELL VOLUME (test code=MCV) 92.6 fL 80-98 MEAN CELL HGB (test code=MCH) 30.8 picogram 27.0-33.0 MEAN CELL HGB CONCETRATION (test code=MCHC) 33.2 gram/dL 33.0-36.0 RED CELL DISTRIBUTION WIDTH (test code=RDW) 14.1 % 11.6-16.2 RED CELL DISTRIBUTION WIDTH SD (test code=RDW-SD) 48.1 fL 37.0-51.0 PLATELET COUNT (test code=PLT) 118 K/mm3 150-450 MEAN PLATELET VOLUME (test code=MPV) 10.9 fL 6.7-11.0 IMMATURE GRANULOCYTE % (test code=IG%) 0.3 % 0.0-5.0 NUCLEATED RBC % (test code=NRBC%) 0.0 % 0-0 NEUTROPHIL # (test code=NT#) 8.81 K/mm3 1.8-7.7 IMMATURE GRANULOCYTE # (test code=IG#) 0.03 x10 3/uL 0-0.03 LYMPHOCYTE # (test code=LY#) 1.22 K/mm3 1.0-5.0 MONOCYTE # (test code=MO#) 1.53 K/mm3 0-0.8 EOSINOPHIL # (test code=EO#) 0.00 K/mm3 0.0-0.5 BASOPHIL # (test code=BA#) 0.01 K/mm3 0.0-0.2 NUCLEATED RBC # (test code=NRBC#) 0.00 K/mm3 0.0-0.1 MANUAL DIFF REQUIRED (test code=MDIFF) YES CBC W/MANUAL [id number] 21:29:00* Test Item Value Reference Range Comments WHITE BLOOD CELL (test code=WBC) 12.0 K/mm3 4.5-12.5 RED BLOOD CELL (test code=RBC) 3.48 mill/mm3 4.0-5.8 HEMOGLOBIN (test code=HGB) 10.6 gram/dL 13.0-17.5 HEMATOCRIT (test code=HCT) 32.6 % 42.0-52.0 MEAN CELL VOLUME (test code=MCV) 93.7 fL 80-98 MEAN CELL HGB (test code=MCH) 30.5 picogram 27.0-33.0 MEAN CELL HGB CONCETRATION (test code=MCHC) 32.5 gram/dL 33.0-36.0 RED CELL DISTRIBUTION WIDTH (test code=RDW) 13.9 % 11.6-16.2 RED CELL DISTRIBUTION WIDTH SD (test code=RDW-SD) 48.1 fL 37.0-51.0 PLATELET COUNT (test code=PLT) 122 K/mm3 150-450 MEAN PLATELET VOLUME (test code=MPV) 11.5 fL 6.7-11.0 IMMATURE GRANULOCYTE % (test code=IG%) 0.3 % 0.0-5.0 NUCLEATED RBC % (test code=NRBC%) 0.0 % 0-0 NEUTROPHIL # (test code=NT#) 9.76 K/mm3 1.8-7.7 IMMATURE GRANULOCYTE # (test code=IG#) 0.03 x10 3/uL 0-0.03 LYMPHOCYTE # (test code=LY#) 0.87 K/mm3 1.0-5.0 MONOCYTE # (test code=MO#) 1.29 K/mm3 0-0.8 EOSINOPHIL # (test code=EO#) 0.01 K/mm3 0.0-0.5 BASOPHIL # (test code=BA#) 0.02 K/mm3 0.0-0.2 NUCLEATED RBC # (test code=NRBC#) 0.00 K/mm3 0.0-0.1 MANUAL DIFF REQUIRED (test code=MDIFF) YES STAIN ACCEPTABILITY (test code=STN ACCEPTABLE) STAIN ACCEPTABLE TOTAL CELLS COUNTED (test code=TCC) 115 #CELLS SEGMENTED NEUTROPHILS (test code=SEG) 86.9 % 39-69 BAND NEUTROPHIL (test code=BAND) 4.3 % 0-10 LYMPHOCYTE (test code=LYMPH) 3.5 % 25-55 REACTIVE LYMPH (test code=RELYMPH) 0 % MONOCYTE (test code=MON) 3.5 % 0-10 EOSINOPHIL (test code=EOS) 0 % 0.0-5.0 BASOPHIL (test code=BASO) 0.9 % 0-1.0 METAMYELOCYTE (test code=META) 0.9 % 0-0 MYELOCYTE (test code=MYELO) 0 % 0.0-0.0 PROMYELOCYTE (test code=PROM) 0 % 0-0 PLATELET ESTIMATE (test code=PLTEST) SLIGHTLY DECREASED PLATELET MORPHOLOGY (test code=PLTMORPH) NORMAL IMMATURE FORMS (test code=IMMAT) 0 % 0-0 BASIC METABOLIC [id number] 21:13:00* Test Item Value Reference Range Comments SODIUM (test code=NA) 144 mmol/L 136-145 POTASSIUM (test code=K) 4.7 mmol/L 3.5-5.1 CHLORIDE (test code=CL) 111.0 mmol/L 98-107 CARBON DIOXIDE (test code=CO2) 25.0 mmol/L 21-32 ANION GAP (test code=GAP) 12.7 10-20 GLUCOSE (test code=GLU) 137 mg/dL 74-106 BLOOD UREA NITROGEN (test code=BUN) 17 mg/dL 7-18 GLOMERULAR FILTRATION RATE (test code=GFR) > 60 mL/min >=60 Estimated GFR by using Modified MDRD formula.Chronic kidney disease is defined as either kidney damageor GFR <60 mL/min/1.73 m2 for >3 months. CREATININE (test code=CREAT) 1.00 mg/dL 0.7-1.3 BUN/CREATININE RATIO (test code=BUN/CREA) 16.5 10-20 CALCIUM (test code=CA) 8.0 mg/dL 8.5-10.1 [id number] 21:13:00* Test Item Value Reference Range Comments PHOSPHORUS (test code=PHOS) 4.1 mg/dL 2.5-4.9 [id number] 21:13:00* Test Item Value Reference Range Comments MAGNESIUM (test code=MAG) 2.3 mg/dL 1.8-2.4 CALCIUM [id number] 21:13:00* Test Item Value Reference Range Comments CALCIUM IONIZED (test code=TANGELA) 1.21 mmol/L 1.12-1.32 [id number] 21:09:00* Test Item Value Reference Range Comments GLUBED (test code=GLUBED) 146 mg/dL 74-106 Performed by certified directory assistance operator at [facility] CBC W/MANUAL [id number] 21:07:00* Test Item Value Reference Range Comments WHITE BLOOD CELL (test code=WBC) 12.0 K/mm3 4.5-12.5 RED BLOOD CELL (test code=RBC) 3.48 mill/mm3 4.0-5.8 HEMOGLOBIN (test code=HGB) 10.6 gram/dL 13.0-17.5 HEMATOCRIT (test code=HCT) 32.6 % 42.0-52.0 MEAN CELL VOLUME (test code=MCV) 93.7 fL 80-98 MEAN CELL HGB (test code=MCH) 30.5 picogram 27.0-33.0 MEAN CELL HGB CONCETRATION (test code=MCHC) 32.5 gram/dL 33.0-36.0 RED CELL DISTRIBUTION WIDTH (test code=RDW) 13.9 % 11.6-16.2 RED CELL DISTRIBUTION WIDTH SD (test code=RDW-SD) 48.1 fL 37.0-51.0 PLATELET COUNT (test code=PLT) 122 K/mm3 150-450 MEAN PLATELET VOLUME (test code=MPV) 11.5 fL 6.7-11.0 IMMATURE GRANULOCYTE % (test code=IG%) 0.3 % 0.0-5.0 NUCLEATED RBC % (test code=NRBC%) 0.0 % 0-0 NEUTROPHIL # (test code=NT#) 9.76 K/mm3 1.8-7.7 IMMATURE GRANULOCYTE # (test code=IG#) 0.03 x10 3/uL 0-0.03 LYMPHOCYTE # (test code=LY#) 0.87 K/mm3 1.0-5.0 MONOCYTE # (test code=MO#) 1.29 K/mm3 0-0.8 EOSINOPHIL # (test code=EO#) 0.01 K/mm3 0.0-0.5 BASOPHIL # (test code=BA#) 0.02 K/mm3 0.0-0.2 NUCLEATED RBC # (test code=NRBC#) 0.00 K/mm3 0.0-0.1 MANUAL DIFF REQUIRED (test code=MDIFF) YES STAIN ACCEPTABILITY (test code=STN ACCEPTABLE) TOTAL CELLS COUNTED (test code=TCC) #CELLS SEGMENTED NEUTROPHILS (test code=SEG) % 39-69 LYMPHOCYTE (test code=LYMPH) % 25-55 MONOCYTE (test code=MON) % 0-10 MORPHOLOGY COMMENT (test code=MOC) PLATELET ESTIMATE (test code=PLTEST) PLATELET MORPHOLOGY (test code=PLTMORPH) BASIC METABOLIC [id number] 21:04:00* Test Item Value Reference Range Comments SODIUM (test code=NA) 144 mmol/L 136-145 POTASSIUM (test code=K) 4.7 mmol/L 3.5-5.1 CHLORIDE (test code=CL) 111.0 mmol/L 98-107 CARBON DIOXIDE (test code=CO2) mmol/L 21-32 ANION GAP (test code=GAP) 10-20 GLUCOSE (test code=GLU) mg/dL 74-106 BLOOD UREA NITROGEN (test code=BUN) mg/dL 7-18 GLOMERULAR FILTRATION RATE (test code=GFR) mL/min >=60 CREATININE (test code=CREAT) mg/dL 0.7-1.3 BUN/CREATININE RATIO (test code=BUN/CREA) 10-20 CALCIUM (test code=CA) mg/dL 8.5-10.1 [id number] 21:04:00* Test Item Value Reference Range Comments PHOSPHORUS (test code=PHOS) mg/dL 2.5-4.9 [id number] 21:04:00* Test Item Value Reference Range Comments MAGNESIUM (test code=MAG) mg/dL 1.8-2.4 CALCIUM [id number] 21:04:00* Test Item Value Reference Range Comments CALCIUM IONIZED (test code=TANGELA) 1.21 mmol/L 1.12-1.32 CBC W/MANUAL [id number] 21:01:00* Test Item Value Reference Range Comments WHITE BLOOD CELL (test code=WBC) 12.0 K/mm3 4.5-12.5 RED BLOOD CELL (test code=RBC) 3.48 mill/mm3 4.0-5.8 HEMOGLOBIN (test code=HGB) 10.6 gram/dL 13.0-17.5 HEMATOCRIT (test code=HCT) 32.6 % 42.0-52.0 MEAN CELL VOLUME (test code=MCV) 93.7 fL 80-98 MEAN CELL HGB (test code=MCH) 30.5 picogram 27.0-33.0 MEAN CELL HGB CONCETRATION (test code=MCHC) 32.5 gram/dL 33.0-36.0 RED CELL DISTRIBUTION WIDTH (test code=RDW) 13.9 % 11.6-16.2 RED CELL DISTRIBUTION WIDTH SD (test code=RDW-SD) 48.1 fL 37.0-51.0 PLATELET COUNT (test code=PLT) 122 K/mm3 150-450 MEAN PLATELET VOLUME (test code=MPV) 11.5 fL 6.7-11.0 IMMATURE GRANULOCYTE % (test code=IG%) 0.3 % 0.0-5.0 NUCLEATED RBC % (test code=NRBC%) 0.0 % 0-0 NEUTROPHIL # (test code=NT#) 9.76 K/mm3 1.8-7.7 IMMATURE GRANULOCYTE # (test code=IG#) 0.03 x10 3/uL 0-0.03 LYMPHOCYTE # (test code=LY#) 0.87 K/mm3 1.0-5.0 MONOCYTE # (test code=MO#) 1.29 K/mm3 0-0.8 EOSINOPHIL # (test code=EO#) 0.01 K/mm3 0.0-0.5 BASOPHIL # (test code=BA#) 0.02 K/mm3 0.0-0.2 NUCLEATED RBC # (test code=NRBC#) 0.00 K/mm3 0.0-0.1 MANUAL DIFF REQUIRED (test code=MDIFF) YES STAIN ACCEPTABILITY (test code=STN ACCEPTABLE) TOTAL CELLS COUNTED (test code=TCC) #CELLS SEGMENTED NEUTROPHILS (test code=SEG) % 39-69 LYMPHOCYTE (test code=LYMPH) % 25-55 MONOCYTE (test code=MON) % 0-10 EOSINOPHIL (test code=EOS) % 0.0-5.0 CABOT RINGS (test code=CAB) MORPHOLOGY COMMENT (test code=MOC) PLATELET ESTIMATE (test code=PLTEST) PLATELET MORPHOLOGY (test code=PLTMORPH) BASIC METABOLIC [id number] 21:01:00* Test Item Value Reference Range Comments SODIUM (test code=NA) mmol/L 136-145 POTASSIUM (test code=K) mmol/L 3.5-5.1 CHLORIDE (test code=CL) mmol/L 98-107 CARBON DIOXIDE (test code=CO2) mmol/L 21-32 ANION GAP (test code=GAP) 10-20 GLUCOSE (test code=GLU) mg/dL 74-106 BLOOD UREA NITROGEN (test code=BUN) mg/dL 7-18 GLOMERULAR FILTRATION RATE (test code=GFR) mL/min >=60 CREATININE (test code=CREAT) mg/dL 0.7-1.3 BUN/CREATININE RATIO (test code=BUN/CREA) 10-20 CALCIUM (test code=CA) mg/dL 8.5-10.1 [id number] 21:01:00* Test Item Value Reference Range Comments PHOSPHORUS (test code=PHOS) mg/dL 2.5-4.9 [id number] 21:01:00* Test Item Value Reference Range Comments MAGNESIUM (test code=MAG) mg/dL 1.8-2.4 CALCIUM [id number] 21:01:00* Test Item Value Reference Range Comments CALCIUM IONIZED (test code=TANGELA) 1.21 mmol/L 1.12-1.32 CBC W/MANUAL [id number] 21:01:00* Test Item Value Reference Range Comments WHITE BLOOD CELL (test code=WBC) 12.0 K/mm3 4.5-12.5 RED BLOOD CELL (test code=RBC) 3.48 mill/mm3 4.0-5.8 HEMOGLOBIN (test code=HGB) 10.6 gram/dL 13.0-17.5 HEMATOCRIT (test code=HCT) 32.6 % 42.0-52.0 MEAN CELL VOLUME (test code=MCV) 93.7 fL 80-98 MEAN CELL HGB (test code=MCH) 30.5 picogram 27.0-33.0 MEAN CELL HGB CONCETRATION (test code=MCHC) 32.5 gram/dL 33.0-36.0 RED CELL DISTRIBUTION WIDTH (test code=RDW) 13.9 % 11.6-16.2 RED CELL DISTRIBUTION WIDTH SD (test code=RDW-SD) 48.1 fL 37.0-51.0 PLATELET COUNT (test code=PLT) 122 K/mm3 150-450 MEAN PLATELET VOLUME (test code=MPV) 11.5 fL 6.7-11.0 IMMATURE GRANULOCYTE % (test code=IG%) 0.3 % 0.0-5.0 NUCLEATED RBC % (test code=NRBC%) 0.0 % 0-0 NEUTROPHIL # (test code=NT#) 9.76 K/mm3 1.8-7.7 IMMATURE GRANULOCYTE # (test code=IG#) 0.03 x10 3/uL 0-0.03 LYMPHOCYTE # (test code=LY#) 0.87 K/mm3 1.0-5.0 MONOCYTE # (test code=MO#) 1.29 K/mm3 0-0.8 EOSINOPHIL # (test code=EO#) 0.01 K/mm3 0.0-0.5 BASOPHIL # (test code=BA#) 0.02 K/mm3 0.0-0.2 NUCLEATED RBC # (test code=NRBC#) 0.00 K/mm3 0.0-0.1 MANUAL DIFF REQUIRED (test code=MDIFF) YES STAIN ACCEPTABILITY (test code=STN ACCEPTABLE) TOTAL CELLS COUNTED (test code=TCC) #CELLS SEGMENTED NEUTROPHILS (test code=SEG) % 39-69 LYMPHOCYTE (test code=LYMPH) % 25-55 MONOCYTE (test code=MON) % 0-10 EOSINOPHIL (test code=EOS) % 0.0-5.0 CABOT RINGS (test code=CAB) MORPHOLOGY COMMENT (test code=MOC) PLATELET ESTIMATE (test code=PLTEST) PLATELET MORPHOLOGY (test code=PLTMORPH) CBC W/MANUAL [id number] 21:01:00* Test Item Value Reference Range Comments WHITE BLOOD CELL (test code=WBC) 12.0 K/mm3 4.5-12.5 RED BLOOD CELL (test code=RBC) 3.48 mill/mm3 4.0-5.8 HEMOGLOBIN (test code=HGB) 10.6 gram/dL 13.0-17.5 HEMATOCRIT (test code=HCT) 32.6 % 42.0-52.0 MEAN CELL VOLUME (test code=MCV) 93.7 fL 80-98 MEAN CELL HGB (test code=MCH) 30.5 picogram 27.0-33.0 MEAN CELL HGB CONCETRATION (test code=MCHC) 32.5 gram/dL 33.0-36.0 RED CELL DISTRIBUTION WIDTH (test code=RDW) 13.9 % 11.6-16.2 RED CELL DISTRIBUTION WIDTH SD (test code=RDW-SD) 48.1 fL 37.0-51.0 PLATELET COUNT (test code=PLT) 122 K/mm3 150-450 MEAN PLATELET VOLUME (test code=MPV) 11.5 fL 6.7-11.0 IMMATURE GRANULOCYTE % (test code=IG%) 0.3 % 0.0-5.0 NUCLEATED RBC % (test code=NRBC%) 0.0 % 0-0 NEUTROPHIL # (test code=NT#) 9.76 K/mm3 1.8-7.7 IMMATURE GRANULOCYTE # (test code=IG#) 0.03 x10 3/uL 0-0.03 LYMPHOCYTE # (test code=LY#) 0.87 K/mm3 1.0-5.0 MONOCYTE # (test code=MO#) 1.29 K/mm3 0-0.8 EOSINOPHIL # (test code=EO#) 0.01 K/mm3 0.0-0.5 BASOPHIL # (test code=BA#) 0.02 K/mm3 0.0-0.2 NUCLEATED RBC # (test code=NRBC#) 0.00 K/mm3 0.0-0.1 MANUAL DIFF REQUIRED (test code=MDIFF) YES STAIN ACCEPTABILITY (test code=STN ACCEPTABLE) TOTAL CELLS COUNTED (test code=TCC) #CELLS SEGMENTED NEUTROPHILS (test code=SEG) % 39-69 LYMPHOCYTE (test code=LYMPH) % 25-55 MONOCYTE (test code=MON) % 0-10 EOSINOPHIL (test code=EOS) % 0.0-5.0 MORPHOLOGY COMMENT (test code=MOC) PLATELET ESTIMATE (test code=PLTEST) PLATELET MORPHOLOGY (test code=PLTMORPH) CBC W/MANUAL [id number] 21:01:00* Test Item Value Reference Range Comments WHITE BLOOD CELL (test code=WBC) 12.0 K/mm3 4.5-12.5 RED BLOOD CELL (test code=RBC) 3.48 mill/mm3 4.0-5.8 HEMOGLOBIN (test code=HGB) 10.6 gram/dL 13.0-17.5 HEMATOCRIT (test code=HCT) 32.6 % 42.0-52.0 MEAN CELL VOLUME (test code=MCV) 93.7 fL 80-98 MEAN CELL HGB (test code=MCH) 30.5 picogram 27.0-33.0 MEAN CELL HGB CONCETRATION (test code=MCHC) 32.5 gram/dL 33.0-36.0 RED CELL DISTRIBUTION WIDTH (test code=RDW) 13.9 % 11.6-16.2 RED CELL DISTRIBUTION WIDTH SD (test code=RDW-SD) 48.1 fL 37.0-51.0 PLATELET COUNT (test code=PLT) 122 K/mm3 150-450 MEAN PLATELET VOLUME (test code=MPV) 11.5 fL 6.7-11.0 IMMATURE GRANULOCYTE % (test code=IG%) 0.3 % 0.0-5.0 NUCLEATED RBC % (test code=NRBC%) 0.0 % 0-0 NEUTROPHIL # (test code=NT#) 9.76 K/mm3 1.8-7.7 IMMATURE GRANULOCYTE # (test code=IG#) 0.03 x10 3/uL 0-0.03 LYMPHOCYTE # (test code=LY#) 0.87 K/mm3 1.0-5.0 MONOCYTE # (test code=MO#) 1.29 K/mm3 0-0.8 EOSINOPHIL # (test code=EO#) 0.01 K/mm3 0.0-0.5 BASOPHIL # (test code=BA#) 0.02 K/mm3 0.0-0.2 NUCLEATED RBC # (test code=NRBC#) 0.00 K/mm3 0.0-0.1 MANUAL DIFF REQUIRED (test code=MDIFF) YES STAIN ACCEPTABILITY (test code=STN ACCEPTABLE) TOTAL CELLS COUNTED (test code=TCC) #CELLS SEGMENTED NEUTROPHILS (test code=SEG) % 39-69 LYMPHOCYTE (test code=LYMPH) % 25-55 MONOCYTE (test code=MON) % 0-10 EOSINOPHIL (test code=EOS) % 0.0-5.0 CABOT RINGS (test code=CAB) MORPHOLOGY COMMENT (test code=MOC) PLATELET ESTIMATE (test code=PLTEST) PLATELET MORPHOLOGY (test code=PLTMORPH) ARTERIAL BLOOD [id number] 19:55:00* Test Item Value Reference Range Comments ARTERIAL BLOOD GAS PH (test code=PHA) 7.38 7.35-7.45 ARTERIAL BLOOD GAS PCO2 (test code=PCO2A) 31.1 mm Hg 35-45 ARTERIAL BLOOD GAS PO2 (test code=PO2A) 421.9 mmHg 80-100 BICARBONATE TOTAL HCO3 (test code=HCO3) 18.2 mmol/L 23.0-27.0 BASE EXCESS (test code=SONJA) -6.1 mmol/L -3.0-5.0 Results called to and read back by DR. Cao 13:01 - 10/04/2018; by DAWSON REYNOSO ABG O2 SATURATION (test code=SATA) 99.2 % 90.0-98.0 ABG TYPE (test code=TYPEA) Arterial FIO2 (test code=FIO2A) 100.0 ABG SITE (test code=SITEA) ARTERIAL LINE SODIUM (test code=NA/ABG) 135.2 mEq/L 135-148 POTASSIUM (test code=K/ABG) 4.5 mEq/L 3.5-4.5 CHLORIDE (test code=CL/ABG) 110 mEq/L 98-106 GLUCOSE (test code=GLU/ABG) 139 mg/dL 74-99 HEMATOCRIT (test code=HCT/ABG) 26 % 42-52 IONIZED CALCIUM (test code=CAIABG) 1.12 mmol/L 1.1-1.37 TOTAL HGB (test code=THB) 8.7 gram/dL 13.0-17.5 HGB O2 SAT (test code=HBOSAT) 97.6 % 94.00-98.00 CARBOXYHEMOGLOBIN (test code=HOHGBT) 0.7 %totalHg 0.5-1.5 METHEMOGLOBIN (test code=METHGB) 0.9 % 0.0-1.50 O2 CONTENT (test code=O2CT) 13.1 % vol 18.0-22.0 ARTERIAL BLOOD [id number] 19:54:00* Test Item Value Reference Range Comments ARTERIAL BLOOD GAS PH (test code=PHA) 7.41 7.35-7.45 ARTERIAL BLOOD GAS PCO2 (test code=PCO2A) 35.9 mm Hg 35-45 ARTERIAL BLOOD GAS PO2 (test code=PO2A) 305.3 mmHg 80-100 BICARBONATE TOTAL HCO3 (test code=HCO3) 22.1 mmol/L 23.0-27.0 BASE EXCESS (test code=SONJA) -2.2 mmol/L -3.0-5.0 ABG O2 SATURATION (test code=SATA) 99.0 % 90.0-98.0 ABG TYPE (test code=TYPEA) Arterial FIO2 (test code=FIO2A) 70.0 ABG SITE (test code=SITEA) ARTERIAL LINE SODIUM (test code=NA/ABG) 131.2 mEq/L 135-148 POTASSIUM (test code=K/ABG) 5.9 mEq/L 3.5-4.5 CHLORIDE (test code=CL/ABG) 106 mEq/L 98-106 GLUCOSE (test code=GLU/ABG) 155 mg/dL 74-99 HEMATOCRIT (test code=HCT/ABG) 30 % 42-52 IONIZED CALCIUM (test code=CAIABG) 1.00 mmol/L 1.1-1.37 TOTAL HGB (test code=THB) 10.1 gram/dL 13.0-17.5 HGB O2 SAT (test code=HBOSAT) 98.1 % 94.00-98.00 CARBOXYHEMOGLOBIN (test code=HOHGBT) 0.2 %totalHg 0.5-1.5 Results called to and read back by DR. Cao 11:47 - 10/04/2018; by DAWSON REYNOSO METHEMOGLOBIN (test code=METHGB) 0.7 % 0.0-1.50 O2 CONTENT (test code=O2CT) 14.7 % vol 18.0-22.0 [id number] 19:28:00* Test Item Value Reference Range Comments GLUBED (test code=GLUBED) 131 mg/dL 74-106 Performed by certified directory assistance operator at [facility] ARTERIAL BLOOD [id number] 18:17:00* Test Item Value Reference Range Comments ARTERIAL BLOOD GAS PH (test code=PHA) 7.37 7.35-7.45 ARTERIAL BLOOD GAS PCO2 (test code=PCO2A) 36.1 mm Hg 35-45 ARTERIAL BLOOD GAS PO2 (test code=PO2A) 100.6 mmHg 80-100 BICARBONATE TOTAL HCO3 (test code=HCO3) 20.5 mmol/L 23.0-27.0 BASE EXCESS (test code=SONJA) -4.1 mmol/L -3.0-5.0 Results called to and read back by Stanton 10/04/2018; by [id number] ABG O2 SATURATION (test code=SATA) 96.9 % 90.0-98.0 ABG TYPE (test code=TYPEA) Arterial FIO2 (test code=FIO2A) 35.0 ABG VENT MODE (test code=MODEA) CPAP ABG PEEP (test code=PEEPA) 5.0 cmH2O ABG PRESSURE SUPPORT (test code=PSABG) 8 cmH2O ABG SITE (test code=SITEA) ARTERIAL LINE HEMATOCRIT (test code=HCT/ABG) 34 % 42-52 TOTAL HGB (test code=THB) 11.6 gram/dL 13.0-17.5 HGB O2 SAT (test code=HBOSAT) 96.4 % 94.00-98.00 CARBOXYHEMOGLOBIN (test code=HOHGBT) 0.1 %totalHg 0.5-1.5 Results called to and read back by Stanton 10/04/2018; by [id number] METHEMOGLOBIN (test code=METHGB) 0.4 % 0.0-1.50 O2 CONTENT (test code=O2CT) 15.9 % vol 18.0-22.0 [id number] 16:07:00* Test Item Value Reference Range Comments GLUBED (test code=GLUBED) 142 mg/dL 74-106 Performed by certified directory assistance operator at [facility] [id number] 16:07:00* Test Item Value Reference Range Comments GLUBED (test code=GLUBED) 155 mg/dL 74-106 Performed by certified directory assistance operator at [facility] LACTIC [id number] 15:37:00* Test Item Value Reference Range Comments LACTIC ACID (test code=LACT) 1.6 mmol/L 0.4-1.9 PROTHROMBIN [id number] 15:26:00* Test Item Value Reference Range Comments PROTHROMBIN TIME PATIENT (test code=PTP) 15.7 seconds 9.0-14.0 INTERNATIONAL NORMAL RATIO (test code=INR) 1.3 0.8-1.2 The therapeutic range for oral anticoagulant therapy formost indications is an international normalized ratio (INR)of between 2.0 and 3.0. The recommended therapeutic INRrange for various clinical situations is listed below: Clinical Situation INR range Pulmonary e mbolism treatment (2.0-3.0)Venous thrombosis treatmentVenous thrombosis prophylaxis (high risk surgery)Prevention of systemic embolism from: Acute myocardial infarction Valvular heart disease Atrial fibrillation Mechanical prosthetic heart valves (2.5-3.5) IS PATIENT ON ANTICOAGULANTS? N- XR CHEST 1 [id number] 15:26:00 FAX: Parag Andrade MD [place]: B St: ADM FAX: Erik Garcia MD [phone] FAX: Mimi George [phone] --------- Name: SHWETHA CARCAMO [facility] : 1935 Age/S: 83/M [address] it #: [id number] Loc: V.S24 [place] [address] Phys: Mimi Aguila Acct: [id number] Dis Date: Status: ADM IN ONE #: [phone] Exam Date: 10/04/2018 1519 FAX #: [phone] Reason: Post CAB EXAMS: CPT CODE: [id number] XR CHEST 1 V [id number] REASON FOR EXAM: Post CAB Exam Order Date: 10/04/2018 11:46 AM Ordering M.D.: SUDASRHAN Pinon PROCEDURE: - XR CHEST 1 V COMPARISON: CT of the chest September 29, 2018 FIN DINGS: Right IJ approach [place] catheter terminates in the right pulm onary artery. Bilateral thoracostomy tubes are present. Mediastinal drains are also present. ET tube terminates 3.9 cm above the [place]. Lung volumes are diminished and there are opacities in the lung bases, more pronounced on the left side. There is a tiny left apical pneumothorax . Cardiomediastinal silhouette is normal in size. 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 There is been interval sternotomy, in keeping with CABG. Visualized upper abdome n is within normal limits. IMPRESSION: Postsurgical gonzales ges of CABG with bibasilar opacities. These opacities, worse on the left , may represent any combination of layering effusions, atelectasis, and consolidation. at 1526 Reported and signed by: Samuel Coughlin MD CC: Parag Garsia; Erik Elizabeth MD; Mimi Aguila Technologist: RT IVY([place]) Trnscrd Date/Time/By: 10/04/2018 (1526) : By: [email or web address] Orig Print D/T: S: 10/04/2018 (5531) PAGE 1 Signed Report BASIC METABOLIC [id number] 15:18:00* Test Item Value Reference Range Comments SODIUM (test code=NA) 144 mmol/L 136-145 POTASSIUM (test code=K) 4.7 mmol/L 3.5-5.1 CHLORIDE (test code=CL) 111.0 mmol/L 98-107 CARBON DIOXIDE (test code=CO2) 24.0 mmol/L 21-32 ANION GAP (test code=GAP) 13.7 10-20 GLUCOSE (test code=GLU) 154 mg/dL 74-106 BLOOD UREA NITROGEN (test code=BUN) 16 mg/dL 7-18 GLOMERULAR FILTRATION RATE (test code=GFR) > 60 mL/min >=60 Estimated GFR by using Modified MDRD formula.Chronic kidney disease is defined as either kidney damageor GFR <60 mL/min/1.73 m2 for >3 months. CREATININE (test code=CREAT) 0.90 mg/dL 0.7-1.3 BUN/CREATININE RATIO (test code=BUN/CREA) 18.4 10-20 CALCIUM (test code=CA) 7.4 mg/dL 8.5-10.1 [id number] 15:18:00* Test Item Value Reference Range Comments PHOSPHORUS (test code=PHOS) 4.0 mg/dL 2.5-4.9 [id number] 15:18:00* Test Item Value Reference Range Comments MAGNESIUM (test code=MAG) 2.3 mg/dL 1.8-2.4 CALCIUM [id number] 15:18:00* Test Item Value Reference Range Comments CALCIUM IONIZED (test code=TANGELA) 1.13 mmol/L 1.12-1.32 BASIC METABOLIC [id number] 15:13:00* Test Item Value Reference Range Comments SODIUM (test code=NA) 144 mmol/L 136-145 POTASSIUM (test code=K) 4.7 mmol/L 3.5-5.1 CHLORIDE (test code=CL) 111.0 mmol/L 98-107 CARBON DIOXIDE (test code=CO2) mmol/L 21-32 ANION GAP (test code=GAP) 10-20 GLUCOSE (test code=GLU) mg/dL 74-106 BLOOD UREA NITROGEN (test code=BUN) mg/dL 7-18 GLOMERULAR FILTRATION RATE (test code=GFR) mL/min >=60 CREATININE (test code=CREAT) mg/dL 0.7-1.3 BUN/CREATININE RATIO (test code=BUN/CREA) 10-20 CALCIUM (test code=CA) mg/dL 8.5-10.1 [id number] 15:13:00* Test Item Value Reference Range Comments PHOSPHORUS (test code=PHOS) mg/dL 2.5-4.9 [id number] 15:13:00* Test Item Value Reference Range Comments MAGNESIUM (test code=MAG) mg/dL 1.8-2.4 CALCIUM [id number] 15:13:00* Test Item Value Reference Range Comments CALCIUM IONIZED (test code=TANGELA) 1.13 mmol/L 1.12-1.32 ARTERIAL BLOOD [id number] 15:10:00* Test Item Value Reference Range Comments ARTERIAL BLOOD GAS PH (test code=PHA) 7.30 7.35-7.45 ARTERIAL BLOOD GAS PCO2 (test code=PCO2A) 37.6 mm Hg 35-45 ARTERIAL BLOOD GAS PO2 (test code=PO2A) 82.6 mmHg 80-100 BICARBONATE TOTAL HCO3 (test code=HCO3) 18.3 mmol/L 23.0-27.0 BASE EXCESS (test code=SONJA) -7.4 mmol/L -3.0-5.0 Results called to and read back by Stanton 15:10 - 10/04/2018; by [id number] ABG O2 SATURATION (test code=SATA) 94.4 % 90.0-98.0 ABG TYPE (test code=TYPEA) Arterial FIO2 (test code=FIO2A) 35.0 ABG VENT MODE (test code=MODEA) CPAP ABG PEEP (test code=PEEPA) 5.0 cmH2O ABG PRESSURE SUPPORT (test code=PSABG) 8 cmH2O ABG SITE (test code=SITEA) ARTERIAL LINE HEMATOCRIT (test code=HCT/ABG) 37 % 42-52 TOTAL HGB (test code=THB) 12.7 gram/dL 13.0-17.5 HGB O2 SAT (test code=HBOSAT) 93.7 % 94.00-98.00 CARBOXYHEMOGLOBIN (test code=HOHGBT) 0.2 %totalHg 0.5-1.5 Results called to and read back by Stanton 15:10 - 10/04/2018; by [id number] METHEMOGLOBIN (test code=METHGB) 0.5 % 0.0-1.50 O2 CONTENT (test code=O2CT) 16.8 % vol 18.0-22.0 BASIC METABOLIC [id number] 15:08:00* Test Item Value Reference Range Comments SODIUM (test code=NA) mmol/L 136-145 POTASSIUM (test code=K) mmol/L 3.5-5.1 CHLORIDE (test code=CL) mmol/L 98-107 CARBON DIOXIDE (test code=CO2) mmol/L 21-32 ANION GAP (test code=GAP) 10-20 GLUCOSE (test code=GLU) mg/dL 74-106 BLOOD UREA NITROGEN (test code=BUN) mg/dL 7-18 GLOMERULAR FILTRATION RATE (test code=GFR) mL/min >=60 CREATININE (test code=CREAT) mg/dL 0.7-1.3 BUN/CREATININE RATIO (test code=BUN/CREA) 10-20 CALCIUM (test code=CA) mg/dL 8.5-10.1 [id number] 15:08:00* Test Item Value Reference Range Comments PHOSPHORUS (test code=PHOS) mg/dL 2.5-4.9 [id number] 15:08:00* Test Item Value Reference Range Comments MAGNESIUM (test code=MAG) mg/dL 1.8-2.4 CALCIUM [id number] 15:08:00* Test Item Value Reference Range Comments CALCIUM IONIZED (test code=TANGELA) 1.13 mmol/L 1.12-1.32 CBC W/AUTO [id number] 15:03:00* Test Item Value Reference Range Comments WHITE BLOOD CELL (test code=WBC) 13.8 K/mm3 4.5-12.5 RED BLOOD CELL (test code=RBC) 3.91 mill/mm3 4.0-5.8 HEMOGLOBIN (test code=HGB) 11.9 gram/dL 13.0-17.5 RESULT VERIFIED BY REPEAT ANALYSIS HEMATOCRIT (test code=HCT) 36.0 % 42.0-52.0 MEAN CELL VOLUME (test code=MCV) 92.1 fL 80-98 MEAN CELL HGB (test code=MCH) 30.4 picogram 27.0-33.0 MEAN CELL HGB CONCETRATION (test code=MCHC) 33.1 gram/dL 33.0-36.0 RED CELL DISTRIBUTION WIDTH (test code=RDW) 13.9 % 11.6-16.2 RED CELL DISTRIBUTION WIDTH SD (test code=RDW-SD) 47.4 fL 37.0-51.0 PLATELET COUNT (test code=PLT) 136 K/mm3 150-450 RESULT VERIFIED BY REPEAT ANALYSIS MEAN PLATELET VOLUME (test code=MPV) 10.0 fL 6.7-11.0 NEUTROPHIL % (test code=NT%) 79.1 % 39.0-69.0 IMMATURE GRANULOCYTE % (test code=IG%) 0.5 % 0.0-5.0 LYMPHOCYTE % (test code=LY%) 10.1 % 25.0-55.0 MONOCYTE % (test code=MO%) 10.0 % 0.0-10.0 EOSINOPHIL % (test code=EO%) 0.1 % 0.0-5.0 BASOPHIL % (test code=BA%) 0.2 % 0.0-1.0 NUCLEATED RBC % (test code=NRBC%) 0.0 % 0-0 NEUTROPHIL # (test code=NT#) 10.91 K/mm3 1.8-7.7 IMMATURE GRANULOCYTE # (test code=IG#) 0.07 x10 3/uL 0-0.03 LYMPHOCYTE # (test code=LY#) 1.40 K/mm3 1.0-5.0 MONOCYTE # (test code=MO#) 1.38 K/mm3 0-0.8 EOSINOPHIL # (test code=EO#) 0.02 K/mm3 0.0-0.5 BASOPHIL # (test code=BA#) 0.03 K/mm3 0.0-0.2 NUCLEATED RBC # (test code=NRBC#) 0.00 K/mm3 0.0-0.1 MANUAL DIFF REQUIRED (test code=MDIFF) NO COAGULATION TIME [id number] 13:09:00* Test Item Value Reference Range Comments COAGULATION TIME ACTIVATED (test code=ACT) 120 seconds 62.8-88.0 COAGULATION TIME [id number] 12:35:00* Test Item Value Reference Range Comments COAGULATION TIME ACTIVATED (test code=ACT) 551 seconds 62.8-88.0 COAGULATION TIME [id number] 11:26:00* Test Item Value Reference Range Comments COAGULATION TIME ACTIVATED (test code=ACT) 685 seconds 62.8-88.0 ARTERIAL BLOOD [id number] 11:17:00* Test Item Value Reference Range Comments ARTERIAL BLOOD GAS PH (test code=PHA) 7.41 7.35-7.45 ARTERIAL BLOOD GAS PCO2 (test code=PCO2A) 36.3 mm Hg 35-45 ARTERIAL BLOOD GAS PO2 (test code=PO2A) 363.2 mmHg 80-100 BICARBONATE TOTAL HCO3 (test code=HCO3) 22.5 mmol/L 23.0-27.0 BASE EXCESS (test code=SONJA) -1.7 mmol/L -3.0-5.0 ABG O2 SATURATION (test code=SATA) 99.1 % 90.0-98.0 ABG TYPE (test code=TYPEA) Arterial FIO2 (test code=FIO2A) 70.0 ABG SITE (test code=SITEA) ARTERIAL LINE SODIUM (test code=NA/ABG) 131.8 mEq/L 135-148 POTASSIUM (test code=K/ABG) 6.0 mEq/L 3.5-4.5 CHLORIDE (test code=CL/ABG) 106 mEq/L 98-106 GLUCOSE (test code=GLU/ABG) 152 mg/dL 74-99 HEMATOCRIT (test code=HCT/ABG) 32 % 42-52 IONIZED CALCIUM (test code=CAIABG) 1.02 mmol/L 1.1-1.37 TOTAL HGB (test code=THB) 10.8 gram/dL 13.0-17.5 HGB O2 SAT (test code=HBOSAT) 98.2 % 94.00-98.00 CARBOXYHEMOGLOBIN (test code=HOHGBT) 0.3 %totalHg 0.5-1.5 Results called to and read back by DR. Cao 11:15 - 10/04/2018; by DAWSON REYNOSO METHEMOGLOBIN (test code=METHGB) 0.6 % 0.0-1.50 O2 CONTENT (test code=O2CT) 15.9 % vol 18.0-22.0 ARTERIAL BLOOD [id number] 11:03:00* Test Item Value Reference Range Comments ARTERIAL BLOOD GAS PH (test code=PHA) 7.41 7.35-7.45 ARTERIAL BLOOD GAS PCO2 (test code=PCO2A) 37.1 mm Hg 35-45 ARTERIAL BLOOD GAS PO2 (test code=PO2A) 398.9 mmHg 80-100 BICARBONATE TOTAL HCO3 (test code=HCO3) 23.1 mmol/L 23.0-27.0 BASE EXCESS (test code=SONJA) -1.2 mmol/L -3.0-5.0 ABG O2 SATURATION (test code=SATA) 98.8 % 90.0-98.0 ABG TYPE (test code=TYPEA) Arterial FIO2 (test code=FIO2A) 70.0 ABG SITE (test code=SITEA) Rt RADIAL ARTERY SODIUM (test code=NA/ABG) 132.9 mEq/L 135-148 POTASSIUM (test code=K/ABG) 5.8 mEq/L 3.5-4.5 CHLORIDE (test code=CL/ABG) 106 mEq/L 98-106 GLUCOSE (test code=GLU/ABG) 138 mg/dL 74-99 HEMATOCRIT (test code=HCT/ABG) 29 % 42-52 IONIZED CALCIUM (test code=CAIABG) 0.97 mmol/L 1.1-1.37 TOTAL HGB (test code=THB) 10.0 gram/dL 13.0-17.5 HGB O2 SAT (test code=HBOSAT) 98.0 % 94.00-98.00 CARBOXYHEMOGLOBIN (test code=HOHGBT) 0.3 %totalHg 0.5-1.5 Results called to and read back by 10:57 - 10/04/2018; by CECI MCGOWAN RN METHEMOGLOBIN (test code=METHGB) 0.5 % 0.0-1.50 O2 CONTENT (test code=O2CT) 14.9 % vol 18.0-22.0 COAGULATION TIME [id number] 11:01:00* Test Item Value Reference Range Comments COAGULATION TIME ACTIVATED (test code=ACT) 448 seconds 62.8-88.0 ARTERIAL BLOOD [id number] 10:59:00* Test Item Value Reference Range Comments ARTERIAL BLOOD GAS PH (test code=PHA) 7.29 7.35-7.45 ARTERIAL BLOOD GAS PCO2 (test code=PCO2A) 44.3 mm Hg 35-45 ARTERIAL BLOOD GAS PO2 (test code=PO2A) 472.5 mmHg 80-100 BICARBONATE TOTAL HCO3 (test code=HCO3) 21.0 mmol/L 23.0-27.0 BASE EXCESS (test code=SONJA) -5.4 mmol/L -3.0-5.0 Results called to and read back by DR. Cao 0910/04/2018; by DAWSON REYNOSO ABCriselda O2 SATURATION (test code=SATA) 99.5 % 90.0-98.0 ABG TYPE (test code=TYPEA) Arterial FIO2 (test code=FIO2A) 100.0 ABG SITE (test code=SITEA) ARTERIAL LINE SODIUM (test code=NA/ABG) 136.8 mEq/L 135-148 POTASSIUM (test code=K/ABG) 4.5 mEq/L 3.5-4.5 CHLORIDE (test code=CL/ABG) 108 mEq/L 98-106 GLUCOSE (test code=GLU/ABG) 145 mg/dL 74-99 HEMATOCRIT (test code=HCT/ABG) 38 % 42-52 IONIZED CALCIUM (test code=CAIABG) 1.08 mmol/L 1.1-1.37 TOTAL HGB (test code=THB) 12.9 gram/dL 13.0-17.5 HGB O2 SAT (test code=HBOSAT) 98.6 % 94.00-98.00 CARBOXYHEMOGLOBIN (test code=HOHGBT) 0.4 %totalHg 0.5-1.5 Results called to and read back by DR. Cao 10/04/2018; by DAWSON REYNOSO METHEMOGLOBIN (test code=METHGB) 0.5 % 0.0-1.50 O2 CONTENT (test code=O2CT) 19.2 % vol 18.0-22.0 ARTERIAL BLOOD [id number] 10:58:00* Test Item Value Reference Range Comments ARTERIAL BLOOD GAS PH (test code=PHA) 7.36 7.35-7.45 ARTERIAL BLOOD GAS PCO2 (test code=PCO2A) 35.0 mm Hg 35-45 ARTERIAL BLOOD GAS PO2 (test code=PO2A) 529.3 mmHg 80-100 BICARBONATE TOTAL HCO3 (test code=HCO3) 19.3 mmol/L 23.0-27.0 BASE EXCESS (test code=SONJA) -5.3 mmol/L -3.0-5.0 Results called to and read back by DR. Cao 08:46 10/04/2018; by DAWSON REYNOSO ABG O2 SATURATION (test code=SATA) 99.4 % 90.0-98.0 ABG TYPE (test code=TYPEA) Arterial FIO2 (test code=FIO2A) 100.0 ABG SITE (test code=SITEA) ARTERIAL LINE SODIUM (test code=NA/ABG) 137.3 mEq/L 135-148 POTASSIUM (test code=K/ABG) 4.1 mEq/L 3.5-4.5 CHLORIDE (test code=CL/ABG) 106 mEq/L 98-106 GLUCOSE (test code=GLU/ABG) 116 mg/dL 74-99 HEMATOCRIT (test code=HCT/ABG) 39 % 42-52 IONIZED CALCIUM (test code=CAIABG) 1.14 mmol/L 1.1-1.37 TOTAL HGB (test code=THB) 13.1 gram/dL 13.0-17.5 HGB O2 SAT (test code=HBOSAT) 98.6 % 94.00-98.00 CARBOXYHEMOGLOBIN (test code=HOHGBT) 0.3 %totalHg 0.5-1.5 Results called to and read back by DR. Cao 08:46 10/04/2018; by DAWSON REYNOSO METHEMOGLOBIN (test code=METHGB) 0.5 % 0.0-1.50 O2 CONTENT (test code=O2CT) 19.6 % vol 18.0-22.0 COAGULATION TIME [id number] 09:58:00* Test Item Value Reference Range Comments COAGULATION TIME ACTIVATED (test code=ACT) 475 seconds 62.8-88.0 COAGULATION TIME [id number] 08:56:00* Test Item Value Reference Range Comments COAGULATION TIME ACTIVATED (test code=ACT) 95 seconds 62.8-88.0 THROMBOPLASTIN TIME [id number] 07:31:00* Test Item Value Reference Range Comments THROMBOPLASTIN TIME PARTIAL (test code=PTT) 31.0 seconds 25.0-36.5 IS PATIENT ON ANTICOAGULANTS? YLIST ANTICOAGULANTS HEPARINTHROMBOPLASTIN TIME [id number] 20:37:00* Test Item Value Reference Range Comments THROMBOPLASTIN TIME PARTIAL (test code=PTT) 91.3 seconds 25.0-36.5 Results called to [id number] by ANGELATS1 10/03/182036Critical results verified and read back by Nurse? Y IS PATIENT ON ANTICOAGULANTS? YLIST ANTICOAGULANTS HEPARINSPECIMEN COMMENTS: PLEASE DRAW ON TIME, PT ON HEPARIN DRIPTHROMBOPLASTIN TIME [id number] 13:33:00* Test Item Value Reference Range Comments THROMBOPLASTIN TIME PARTIAL (test code=PTT) 45.0 seconds 25.0-36.5 IS PATIENT ON ANTICOAGULANTS? YLIST ANTICOAGULANTS HEPARINPROTHROMBIN TIME 2018-10-03 11:31:00* Test Item Value Reference Range Comments PROTHROMBIN TIME PATIENT (test code=PTP) 12.5 seconds 9.0-14.0 INTERNATIONAL NORMAL RATIO (test code=INR) 1.1 0.8-1.2 The therapeutic range for oral anticoagulant therapy formost indications is an international normalized ratio (INR)of between 2.0 and 3.0. The recommended therapeutic INRrange for various clinical situations is listed below: Clinical Situation INR range Pulmonary e mbolism treatment (2.0-3.0)Venous thrombosis treatmentVenous thrombosis prophylaxis (high risk surgery)Prevention of systemic embolism from: Acute myocardial infarction Valvular heart disease Atrial fibrillation Mechanical prosthetic heart valves (2.5-3.5) IS PATIENT ON ANTICOAGULANTS? YSABELIST ANTICOAGULANTS HEPARINCBC W/AUTO DIFF 2018-10-03 11:24:00* Test Item Value Reference Range Comments WHITE BLOOD CELL (test code=WBC) 8.1 K/mm3 4.5-12.5 RED BLOOD CELL (test code=RBC) 4.92 mill/mm3 4.0-5.8 HEMOGLOBIN (test code=HGB) 15.0 gram/dL 13.0-17.5 HEMATOCRIT (test code=HCT) 45.9 % 42.0-52.0 MEAN CELL VOLUME (test code=MCV) 93.3 fL 80-98 MEAN CELL HGB (test code=MCH) 30.5 picogram 27.0-33.0 MEAN CELL HGB CONCETRATION (test code=MCHC) 32.7 gram/dL 33.0-36.0 RED CELL DISTRIBUTION WIDTH (test code=RDW) 13.6 % 11.6-16.2 RED CELL DISTRIBUTION WIDTH SD (test code=RDW-SD) 46.4 fL 37.0-51.0 PLATELET COUNT (test code=PLT) 197 K/mm3 150-450 MEAN PLATELET VOLUME (test code=MPV) 10.2 fL 6.7-11.0 NEUTROPHIL % (test code=NT%) 51.8 % 39.0-69.0 IMMATURE GRANULOCYTE % (test code=IG%) 0.5 % 0.0-5.0 LYMPHOCYTE % (test code=LY%) 28.9 % 25.0-55.0 MONOCYTE % (test code=MO%) 15.0 % 0.0-10.0 EOSINOPHIL % (test code=EO%) 3.2 % 0.0-5.0 BASOPHIL % (test code=BA%) 0.6 % 0.0-1.0 NUCLEATED RBC % (test code=NRBC%) 0.0 % 0-0 NEUTROPHIL # (test code=NT#) 4.17 K/mm3 1.8-7.7 IMMATURE GRANULOCYTE # (test code=IG#) 0.04 x10 3/uL 0-0.03 LYMPHOCYTE # (test code=LY#) 2.33 K/mm3 1.0-5.0 MONOCYTE # (test code=MO#) 1.21 K/mm3 0-0.8 EOSINOPHIL # (test code=EO#) 0.26 K/mm3 0.0-0.5 BASOPHIL # (test code=BA#) 0.05 K/mm3 0.0-0.2 NUCLEATED RBC # (test code=NRBC#) 0.00 K/mm3 0.0-0.1 MANUAL DIFF REQUIRED (test code=MDIFF) NO CBC W/AUTO [id number] 11:23:00* Test Item Value Reference Range Comments WHITE BLOOD CELL (test code=WBC) K/mm3 4.5-12.5 RED BLOOD CELL (test code=RBC) mill/mm3 4.0-5.8 HEMOGLOBIN (test code=HGB) 15.0 gram/dL 13.0-17.5 HEMATOCRIT (test code=HCT) 45.9 % 42.0-52.0 MEAN CELL VOLUME (test code=MCV) fL 80-98 MEAN CELL HGB (test code=MCH) picogram 27.0-33.0 MEAN CELL HGB CONCETRATION (test code=MCHC) gram/dL 33.0-36.0 RED CELL DISTRIBUTION WIDTH (test code=RDW) % 11.6-16.2 RED CELL DISTRIBUTION WIDTH SD (test code=RDW-SD) fL 37.0-51.0 PLATELET COUNT (test code=PLT) K/mm3 150-450 MEAN PLATELET VOLUME (test code=MPV) fL 6.7-11.0 NEUTROPHIL % (test code=NT%) % 39.0-69.0 IMMATURE GRANULOCYTE % (test code=IG%) % 0.0-5.0 LYMPHOCYTE % (test code=LY%) % 25.0-55.0 MONOCYTE % (test code=MO%) % 0.0-10.0 EOSINOPHIL % (test code=EO%) % 0.0-5.0 BASOPHIL % (test code=BA%) % 0.0-1.0 NEUTROPHIL # (test code=NT#) K/mm3 1.8-7.7 LYMPHOCYTE # (test code=LY#) K/mm3 1.0-5.0 MONOCYTE # (test code=MO#) K/mm3 0-0.8 EOSINOPHIL # (test code=EO#) K/mm3 0.0-0.5 BASOPHIL # (test code=BA#) K/mm3 0.0-0.2 COMPREHENSIVE METABOLIC [id number] 08:47:00* Test Item Value Reference Range Comments SODIUM (test code=NA) 137 mmol/L 136-145 POTASSIUM (test code=K) 4.4 mmol/L 3.5-5.1 CHLORIDE (test code=CL) 108.0 mmol/L 98-107 CARBON DIOXIDE (test code=CO2) 23.0 mmol/L 21-32 ANION GAP (test code=GAP) 10.4 10-20 GLUCOSE (test code=GLU) 111 mg/dL 74-106 BLOOD UREA NITROGEN (test code=BUN) 18 mg/dL 7-18 GLOMERULAR FILTRATION RATE (test code=GFR) > 60 mL/min >=60 Estimated GFR by using Modified MDRD formula.Chronic kidney disease is defined as either kidney damageor GFR <60 mL/min/1.73 m2 for >3 months. CREATININE (test code=CREAT) 0.90 mg/dL 0.7-1.3 BUN/CREATININE RATIO (test code=BUN/CREA) 19.1 10-20 TOTAL PROTEIN (test code=PROT) 6.9 gram/dL 6.4-8.2 ALBUMIN (test code=ALB) 3.5 g/dL 3.4-5.0 GLOBULIN (test code=GLOB) 3.4 gram/dL 2.7-4.2 ALBUMIN/GLOBULIN RATIO (test code=A/G) 1.0 0.75-1.50 CALCIUM (test code=CA) 8.9 mg/dL 8.5-10.1 BILIRUBIN TOTAL (test code=BILT) 0.40 mg/dL 0.0-1.0 SGOT/AST (test code=AST) 36 IUnit/L 15-37 SGPT/ALT (test code=ALT) 42 IUnit/L 12-78 ALKALINE PHOSPHATASE TOTAL (test code=ALKP) 67 IUnit/L 45-117 Note change in reference range due to change in reagent. [id number] 08:47:00* Test Item Value Reference Range Comments MAGNESIUM (test code=MAG) 2.5 mg/dL 1.8-2.4 COMPREHENSIVE METABOLIC [id number] 08:37:00* Test Item Value Reference Range Comments SODIUM (test code=NA) 137 mmol/L 136-145 POTASSIUM (test code=K) 4.4 mmol/L 3.5-5.1 CHLORIDE (test code=CL) 108.0 mmol/L 98-107 CARBON DIOXIDE (test code=CO2) mmol/L 21-32 ANION GAP (test code=GAP) 10-20 GLUCOSE (test code=GLU) mg/dL 74-106 BLOOD UREA NITROGEN (test code=BUN) mg/dL 7-18 GLOMERULAR FILTRATION RATE (test code=GFR) mL/min >=60 CREATININE (test code=CREAT) mg/dL 0.7-1.3 BUN/CREATININE RATIO (test code=BUN/CREA) 10-20 TOTAL PROTEIN (test code=PROT) gram/dL 6.4-8.2 ALBUMIN (test code=ALB) g/dL 3.4-5.0 GLOBULIN (test code=GLOB) gram/dL 2.7-4.2 ALBUMIN/GLOBULIN RATIO (test code=A/G) 0.75-1.50 CALCIUM (test code=CA) mg/dL 8.5-10.1 BILIRUBIN TOTAL (test code=BILT) mg/dL 0.0-1.0 SGOT/AST (test code=AST) IUnit/L 15-37 SGPT/ALT (test code=ALT) IUnit/L 12-78 ALKALINE PHOSPHATASE TOTAL (test code=ALKP) IUnit/L 45-117 [id number] 08:37:00* Test Item Value Reference Range Comments MAGNESIUM (test code=MAG) mg/dL 1.8-2.4 THROMBOPLASTIN TIME [id number] 07:42:00* Test Item Value Reference Range Comments THROMBOPLASTIN TIME PARTIAL (test code=PTT) 49.3 seconds 25.0-36.5 IS PATIENT ON ANTICOAGULANTS? YLIST ANTICOAGULANTS HEPARINTHROMBOPLASTIN TIME [id number] 01:32:00* Test Item Value Reference Range Comments THROMBOPLASTIN TIME PARTIAL (test code=PTT) 49.3 seconds 25.0-36.5 IS PATIENT ON ANTICOAGULANTS? YLIST ANTICOAGULANTS HEPARINTHROMBOPLASTIN TIME [id number] 19:34:00* Test Item Value Reference Range Comments THROMBOPLASTIN TIME PARTIAL (test code=PTT) 46.8 seconds 25.0-36.5 IS PATIENT ON ANTICOAGULANTS? YLIST ANTICOAGULANTS HEPARINSPECIMEN COMMENTS: PLEASE DRAW ON TIME, PT ON HEPARIN DRIPTHROMBOPLASTIN TIME [id number] 12:54:00* Test Item Value Reference Range Comments THROMBOPLASTIN TIME PARTIAL (test code=PTT) 72.3 seconds 25.0-36.5 IS PATIENT ON ANTICOAGULANTS? YLIST ANTICOAGULANTS HEPARINTHROMBOPLASTIN TIME [id number] 06:17:00* Test Item Value Reference Range Comments THROMBOPLASTIN TIME PARTIAL (test code=PTT) 81.4 seconds 25.0-36.5 IS PATIENT ON ANTICOAGULANTS? YLIST ANTICOAGULANTS HEPARINTHROMBOPLASTIN TIME [id number] 22:31:00* Test Item Value Reference Range Comments THROMBOPLASTIN TIME PARTIAL (test code=PTT) 109.6 seconds 25.0-36.5 Results called to [id number] by [place] 10/01/18 2231Critical results verified and read back by Nurse? Y IS PATIENT ON ANTICOAGULANTS? YLIST ANTICOAGULANTS HEPARINCOMMENTS TO PHLEBO TOMIST: THIS IS A TIMED STUDY.PFA [id number] 15:21:00* Test Item Value Reference Range Comments PFA COLLAGEN/EPI (test code=PFA) TEST NOT PERFORMED SECONDS 83-183 TEST REORDERED. [id number] 15:01:00* Test Item Value Reference Range Comments HEMATOCRIT (test code=HCT) 45.6 % 42.0-52.0 PLATELET [id number] 15:01:00* Test Item Value Reference Range Comments PLATELET COUNT (test code=PLT) 210 K/mm3 150-450 PLATELET [id number] 15:00:00* Test Item Value Reference Range Comments PLATELET FUNCTION ASSAY (test code=PFA) 101 SECONDS 83-183 NOTE:When the COL/EPI study is abnormal, it is usually due to anaspirin or an aspirin like defect. Sometimes a hereditarydefect, for example, storage pool disease, can also causethe abnormality. However, when the COL/ADP study is abnormal, a more seriousproblem usually exists, such as von Willebrands disease,etc. and further evaluation is usually indicated.TEST PERFORMED AT: [address] [address] PFA COLLAGEN/ADP (test code=COLADP) TEST NOT PERFORMED SECONDS 61-109 TEST NOT INDICATED [id number] 15:00:00* Test Item Value Reference Range Comments HEMATOCRIT (test code=HCT) 45.6 % 42.0-52.0 PLATELET [id number] 15:00:00* Test Item Value Reference Range Comments PLATELET COUNT (test code=PLT) K/mm3 150-450 THROMBOPLASTIN TIME [id number] 15:00:00* Test Item Value Reference Range Comments THROMBOPLASTIN TIME PARTIAL (test code=PTT) 27.7 seconds 25.0-36.5 IS PATIENT ON ANTICOAGULANTS? YLIST ANTICOAGULANTS HEPARINPLATELET FUNCTION 2018-10-01 14:52:00* Test Item Value Reference Range Comments PFA COLLAGEN/EPI (test code=PFA) 101 SECONDS 83-183 NOTE:When the COL/EPI study is abnormal, it is usually due to anaspirin or an aspirin like defect. Sometimes a hereditarydefect, for example, storage pool disease, can also causethe abnormality. However, when the COL/ADP study is abnormal, a more seriousproblem usually exists, such as von Willebrands disease,etc. and further evaluation is usually indicated. PFA COLLAGEN/ADP (test code=COLADP) TEST NOT PERFORMED SECONDS 61-109 TEST NOT INDICATED PLATELET [id number] 14:52:00* Test Item Value Reference Range Comments PLATELET FUNCTION ASSAY (test code=PFA) 101 SECONDS 83-183 NOTE:When the COL/EPI study is abnormal, it is usually due to anaspirin or an aspirin like defect. Sometimes a hereditarydefect, for example, storage pool disease, can also causethe abnormality. However, when the COL/ADP study is abnormal, a more seriousproblem usually exists, such as von Willebrands disease,etc. and further evaluation is usually indicated.TEST PERFORMED AT: [facility] [address] [place] [address] PFA COLLAGEN/ADP (test code=COLADP) SECONDS 61-109 TEST NOT INDICATED PLATELET FUNCTION [id number] 10:30:00* Test Item Value Reference Range Comments PLATELET FUNCTION ANALYSIS (test code=PFA) seconds 83-183 Test Name Test Result Reference RangePlatelets 202 (150- 450 K/CU MM)ADP 3 (L) (62-100%)Platelet Rich Plasma 282 (200-300 k/cu mm) Plt. Function Screen Interpretation: Platelet Function Screen results may be falsely low with platelt counts <75,000/cc mm. PROTHROMBIN [id number] 08:08:00* Test Item Value Reference Range Comments PROTHROMBIN TIME PATIENT (test code=PTP) 12.0 seconds 9.0-14.0 INTERNATIONAL NORMAL RATIO (test code=INR) 1.0 0.8-1.2 The therapeutic range for oral anticoagulant therapy formost indications is an international normalized ratio (INR)of between 2.0 and 3.0. The recommended therapeutic INRrange for various clinical situations is listed below: Clinical Situation INR range Pulmonary e mbolism treatment (2.0-3.0)Venous thrombosis treatmentVenous thrombosis prophylaxis (high risk surgery)Prevention of systemic embolism from: Acute myocardial infarction Valvular heart disease Atrial fibrillation Mechanical prosthetic heart valves (2.5-3.5) IS PATIENT ON ANTICOAGULANTS? YLIST ANTICOAGULANTS COUMADINSPECIMEN COMMENTS : ADD ON THE BLOOD IN THE LABCOMMENTS TO MIXING PICKER TENDER: STATBASIC METABOLIC PANEL 2018-10-01 04:47:00* Test Item Value Reference Range Comments SODIUM (test code=NA) 139 mmol/L 136-145 POTASSIUM (test code=K) 4.6 mmol/L 3.5-5.1 CHLORIDE (test code=CL) 108.0 mmol/L 98-107 CARBON DIOXIDE (test code=CO2) 26.0 mmol/L 21-32 ANION GAP (test code=GAP) 9.6 10-20 GLUCOSE (test code=GLU) 119 mg/dL 74-106 BLOOD UREA NITROGEN (test code=BUN) 24 mg/dL 7-18 GLOMERULAR FILTRATION RATE (test code=GFR) > 60 mL/min >=60 Estimated GFR by using Modified MDRD formula.Chronic kidney disease is defined as either kidney damageor GFR <60 mL/min/1.73 m2 for >3 months. CREATININE (test code=CREAT) 1.10 mg/dL 0.7-1.3 BUN/CREATININE RATIO (test code=BUN/CREA) 21.8 10-20 CALCIUM (test code=CA) 9.1 mg/dL 8.5-10.1 THROMBOPLASTIN TIME [id number] 04:42:00* Test Item Value Reference Range Comments THROMBOPLASTIN TIME PARTIAL (test code=PTT) 29.5 seconds 25.0-36.5 IS PATIENT ON ANTICOAGULANTS? YLIST ANTICOAGULANTS HEPARINCBC W/AUTO DIFF 2018-10-01 04:39:00* Test Item Value Reference Range Comments WHITE BLOOD CELL (test code=WBC) 9.1 K/mm3 4.5-12.5 RED BLOOD CELL (test code=RBC) 4.71 mill/mm3 4.0-5.8 HEMOGLOBIN (test code=HGB) 14.9 gram/dL 13.0-17.5 HEMATOCRIT (test code=HCT) 44.0 % 42.0-52.0 MEAN CELL VOLUME (test code=MCV) 93.4 fL 80-98 MEAN CELL HGB (test code=MCH) 31.6 picogram 27.0-33.0 MEAN CELL HGB CONCETRATION (test code=MCHC) 33.9 gram/dL 33.0-36.0 RED CELL DISTRIBUTION WIDTH (test code=RDW) 13.6 % 11.6-16.2 RED CELL DISTRIBUTION WIDTH SD (test code=RDW-SD) 46.4 fL 37.0-51.0 PLATELET COUNT (test code=PLT) 197 K/mm3 150-450 MEAN PLATELET VOLUME (test code=MPV) 10.2 fL 6.7-11.0 NEUTROPHIL % (test code=NT%) 54.8 % 39.0-69.0 IMMATURE GRANULOCYTE % (test code=IG%) 0.5 % 0.0-5.0 LYMPHOCYTE % (test code=LY%) 28.4 % 25.0-55.0 MONOCYTE % (test code=MO%) 13.1 % 0.0-10.0 EOSINOPHIL % (test code=EO%) 2.8 % 0.0-5.0 BASOPHIL % (test code=BA%) 0.4 % 0.0-1.0 NUCLEATED RBC % (test code=NRBC%) 0.0 % 0-0 NEUTROPHIL # (test code=NT#) 4.99 K/mm3 1.8-7.7 IMMATURE GRANULOCYTE # (test code=IG#) 0.05 x10 3/uL 0-0.03 LYMPHOCYTE # (test code=LY#) 2.59 K/mm3 1.0-5.0 MONOCYTE # (test code=MO#) 1.20 K/mm3 0-0.8 EOSINOPHIL # (test code=EO#) 0.26 K/mm3 0.0-0.5 BASOPHIL # (test code=BA#) 0.04 K/mm3 0.0-0.2 NUCLEATED RBC # (test code=NRBC#) 0.00 K/mm3 0.0-0.1 CBC W/AUTO [id number] 04:25:00* Test Item Value Reference Range Comments WHITE BLOOD CELL (test code=WBC) K/mm3 4.5-12.5 RED BLOOD CELL (test code=RBC) mill/mm3 4.0-5.8 HEMOGLOBIN (test code=HGB) 14.9 gram/dL 13.0-17.5 HEMATOCRIT (test code=HCT) 44.0 % 42.0-52.0 MEAN CELL VOLUME (test code=MCV) fL 80-98 MEAN CELL HGB (test code=MCH) picogram 27.0-33.0 MEAN CELL HGB CONCETRATION (test code=MCHC) gram/dL 33.0-36.0 RED CELL DISTRIBUTION WIDTH (test code=RDW) % 11.6-16.2 RED CELL DISTRIBUTION WIDTH SD (test code=RDW-SD) fL 37.0-51.0 PLATELET COUNT (test code=PLT) K/mm3 150-450 MEAN PLATELET VOLUME (test code=MPV) fL 6.7-11.0 NEUTROPHIL % (test code=NT%) % 39.0-69.0 IMMATURE GRANULOCYTE % (test code=IG%) % 0.0-5.0 LYMPHOCYTE % (test code=LY%) % 25.0-55.0 MONOCYTE % (test code=MO%) % 0.0-10.0 EOSINOPHIL % (test code=EO%) % 0.0-5.0 BASOPHIL % (test code=BA%) % 0.0-1.0 NEUTROPHIL # (test code=NT#) K/mm3 1.8-7.7 LYMPHOCYTE # (test code=LY#) K/mm3 1.0-5.0 MONOCYTE # (test code=MO#) K/mm3 0-0.8 EOSINOPHIL # (test code=EO#) K/mm3 0.0-0.5 BASOPHIL # (test code=BA#) K/mm3 0.0-0.2 PROTHROMBIN [id number] 22:47:00* Test Item Value Reference Range Comments PROTHROMBIN TIME PATIENT (test code=PTP) 12.0 seconds 9.0-14.0 INTERNATIONAL NORMAL RATIO (test code=INR) 1.0 0.8-1.2 The therapeutic range for oral anticoagulant therapy formost indications is an international normalized ratio (INR)of between 2.0 and 3.0. The recommended therapeutic INRrange for various clinical situations is listed below: Clinical Situation INR range Pulmonary e mbolism treatment (2.0-3.0)Venous thrombosis treatmentVenous thrombosis prophylaxis (high risk surgery)Prevention of systemic embolism from: Acute myocardial infarction Valvular heart disease Atrial fibrillation Mechanical prosthetic heart valves (2.5-3.5) IS PATIENT ON ANTICOAGULANTS? NTHROMBOPLASTIN TIME [id number] 22:36:00* Test Item Value Reference Range Comments THROMBOPLASTIN TIME PARTIAL (test code=PTT) 45.2 seconds 25.0-36.5 IS PATIENT ON ANTICOAGULANTS? YLIST ANTICOAGULANTS HEPARINCOMPREHENSIVE METABOLIC [id number] 21:37:00* Test Item Value Reference Range Comments SODIUM (test code=NA) 136 mmol/L 136-145 POTASSIUM (test code=K) 4.5 mmol/L 3.5-5.1 CHLORIDE (test code=CL) 108.0 mmol/L 98-107 CARBON DIOXIDE (test code=CO2) 23.0 mmol/L 21-32 ANION GAP (test code=GAP) 9.5 10-20 GLUCOSE (test code=GLU) 104 mg/dL 74-106 BLOOD UREA NITROGEN (test code=BUN) 25 mg/dL 7-18 GLOMERULAR FILTRATION RATE (test code=GFR) > 60 mL/min >=60 Estimated GFR by using Modified MDRD formula.Chronic kidney disease is defined as either kidney damageor GFR <60 mL/min/1.73 m2 for >3 months. CREATININE (test code=CREAT) 1.10 mg/dL 0.7-1.3 BUN/CREATININE RATIO (test code=BUN/CREA) 22.7 10-20 TOTAL PROTEIN (test code=PROT) 7.6 gram/dL 6.4-8.2 ALBUMIN (test code=ALB) 3.8 g/dL 3.4-5.0 GLOBULIN (test code=GLOB) 3.8 gram/dL 2.7-4.2 ALBUMIN/GLOBULIN RATIO (test code=A/G) 1.0 0.75-1.50 CALCIUM (test code=CA) 9.3 mg/dL 8.5-10.1 BILIRUBIN TOTAL (test code=BILT) 0.40 mg/dL 0.0-1.0 SGOT/AST (test code=AST) 38 IUnit/L 15-37 SGPT/ALT (test code=ALT) 30 IUnit/L 12-78 ALKALINE PHOSPHATASE TOTAL (test code=ALKP) 66 IUnit/L 45-117 Note change in reference range due to change in reagent. LIPID PROFILE (CORONARY RISK)2018-09-30 21:37:00* Test Item Value Reference Range Comments TRIGLYCERIDES (test code=TRIG) 184 mg/dL 20-150 CHOLESTEROL (test code=CHOL) 174 mg/dL 0-200 CHOLESTEROL/HDL RATIO (test code=CHOLHDL) 4.0 RATIO 0-4.9 RISK ASSOCIATED WITH CHOL/HDL RATIOS: Risk Male Female1/2 AVERAGE 3.43 3.27AVERAGE 4.97 4.442X AVERAGE 9.55 7.053X AVERAGE 23.39 11.04 REFERENCE VALUE IS RELATED TO RISK LEVELS ASRECOMMENDED BY THE [facility]. HEART, LUNG, AND BLOOD INST. HDL CHOLESTEROL (test code=HDL) 42 mg/dL 40-60 LIPOPROTEIN LDL (test code=LDL) 116 mg/dL 100-129 RN PERSONNEL, CONTACT PHYSICIAN IMMEDIATELY IF THIS IS A STROKE, AMI OR CAROTID STENOSIS PATIENT WHEN THE LDL >100 (1ST OCCURENCE, THIS ADMISSION) Reference Interval: mg/dL mmol/L Optimal <100 <2.6Near/above optimal 100-129 2.6- 3.3Borderline High 130-159 3.4-4.1High 160-189 4.1-4.9Very High >=190 >=4.9=========This LDL result is a direct measurement.========= [id number] 21:37:00* Test Item Value Reference Range Comments MAGNESIUM (test code=MAG) 2.5 mg/dL 1.8-2.4 COMPREHENSIVE METABOLIC [id number] 21:27:00* Test Item Value Reference Range Comments SODIUM (test code=NA) 136 mmol/L 136-145 POTASSIUM (test code=K) 4.5 mmol/L 3.5-5.1 CHLORIDE (test code=CL) 108.0 mmol/L 98-107 CARBON DIOXIDE (test code=CO2) mmol/L 21-32 ANION GAP (test code=GAP) 10-20 GLUCOSE (test code=GLU) mg/dL 74-106 BLOOD UREA NITROGEN (test code=BUN) mg/dL 7-18 GLOMERULAR FILTRATION RATE (test code=GFR) mL/min >=60 CREATININE (test code=CREAT) mg/dL 0.7-1.3 BUN/CREATININE RATIO (test code=BUN/CREA) 10-20 TOTAL PROTEIN (test code=PROT) gram/dL 6.4-8.2 ALBUMIN (test code=ALB) g/dL 3.4-5.0 GLOBULIN (test code=GLOB) gram/dL 2.7-4.2 ALBUMIN/GLOBULIN RATIO (test code=A/G) 0.75-1.50 CALCIUM (test code=CA) mg/dL 8.5-10.1 BILIRUBIN TOTAL (test code=BILT) mg/dL 0.0-1.0 SGOT/AST (test code=AST) IUnit/L 15-37 SGPT/ALT (test code=ALT) IUnit/L 12-78 ALKALINE PHOSPHATASE TOTAL (test code=ALKP) IUnit/L 45-117 LIPID PROFILE (CORONARY RISK)2018-09-30 21:27:00* Test Item Value Reference Range Comments TRIGLYCERIDES (test code=TRIG) mg/dL 20-150 CHOLESTEROL (test code=CHOL) mg/dL 0-200 CHOLESTEROL/HDL RATIO (test code=CHOLHDL) RATIO 0-4.9 HDL CHOLESTEROL (test code=HDL) mg/dL 40-60 LIPOPROTEIN LDL (test code=LDL) mg/dL 100-129 [id number] 21:27:00* Test Item Value Reference Range Comments MAGNESIUM (test code=MAG) mg/dL 1.8-2.4 CBC W/AUTO [id number] 21:24:00* Test Item Value Reference Range Comments WHITE BLOOD CELL (test code=WBC) 8.8 K/mm3 4.5-12.5 RED BLOOD CELL (test code=RBC) 5.16 mill/mm3 4.0-5.8 HEMOGLOBIN (test code=HGB) 15.7 gram/dL 13.0-17.5 HEMATOCRIT (test code=HCT) 50.4 % 42.0-52.0 MEAN CELL VOLUME (test code=MCV) 97.7 fL 80-98 MEAN CELL HGB (test code=MCH) 30.4 picogram 27.0-33.0 MEAN CELL HGB CONCETRATION (test code=MCHC) 31.2 gram/dL 33.0-36.0 RED CELL DISTRIBUTION WIDTH (test code=RDW) 13.6 % 11.6-16.2 RED CELL DISTRIBUTION WIDTH SD (test code=RDW-SD) 49.1 fL 37.0-51.0 PLATELET COUNT (test code=PLT) 175 K/mm3 150-450 MEAN PLATELET VOLUME (test code=MPV) 10.2 fL 6.7-11.0 NEUTROPHIL % (test code=NT%) 47.8 % 39.0-69.0 IMMATURE GRANULOCYTE % (test code=IG%) 0.5 % 0.0-5.0 LYMPHOCYTE % (test code=LY%) 34.2 % 25.0-55.0 MONOCYTE % (test code=MO%) 14.3 % 0.0-10.0 EOSINOPHIL % (test code=EO%) 2.5 % 0.0-5.0 BASOPHIL % (test code=BA%) 0.7 % 0.0-1.0 NUCLEATED RBC % (test code=NRBC%) 0.0 % 0-0 NEUTROPHIL # (test code=NT#) 4.23 K/mm3 1.8-7.7 IMMATURE GRANULOCYTE # (test code=IG#) 0.04 x10 3/uL 0-0.03 LYMPHOCYTE # (test code=LY#) 3.02 K/mm3 1.0-5.0 MONOCYTE # (test code=MO#) 1.26 K/mm3 0-0.8 EOSINOPHIL # (test code=EO#) 0.22 K/mm3 0.0-0.5 BASOPHIL # (test code=BA#) 0.06 K/mm3 0.0-0.2 NUCLEATED RBC # (test code=NRBC#) 0.00 K/mm3 0.0-0.1 MANUAL DIFF REQUIRED (test code=MDIFF) NO CBC W/AUTO [id number] 21:19:00* Test Item Value Reference Range Comments WHITE BLOOD CELL (test code=WBC) K/mm3 4.5-12.5 RED BLOOD CELL (test code=RBC) mill/mm3 4.0-5.8 HEMOGLOBIN (test code=HGB) 15.7 gram/dL 13.0-17.5 HEMATOCRIT (test code=HCT) 50.4 % 42.0-52.0 MEAN CELL VOLUME (test code=MCV) fL 80-98 MEAN CELL HGB (test code=MCH) picogram 27.0-33.0 MEAN CELL HGB CONCETRATION (test code=MCHC) gram/dL 33.0-36.0 RED CELL DISTRIBUTION WIDTH (test code=RDW) % 11.6-16.2 RED CELL DISTRIBUTION WIDTH SD (test code=RDW-SD) fL 37.0-51.0 PLATELET COUNT (test code=PLT) K/mm3 150-450 MEAN PLATELET VOLUME (test code=MPV) fL 6.7-11.0 NEUTROPHIL % (test code=NT%) % 39.0-69.0 IMMATURE GRANULOCYTE % (test code=IG%) % 0.0-5.0 LYMPHOCYTE % (test code=LY%) % 25.0-55.0 MONOCYTE % (test code=MO%) % 0.0-10.0 EOSINOPHIL % (test code=EO%) % 0.0-5.0 BASOPHIL % (test code=BA%) % 0.0-1.0 NEUTROPHIL # (test code=NT#) K/mm3 1.8-7.7 LYMPHOCYTE # (test code=LY#) K/mm3 1.0-5.0 MONOCYTE # (test code=MO#) K/mm3 0-0.8 EOSINOPHIL # (test code=EO#) K/mm3 0.0-0.5 BASOPHIL # (test code=BA#) K/mm3 0.0-0.2 THROMBOPLASTIN TIME [id number] 17:02:00* Test Item Value Reference Range Comments THROMBOPLASTIN TIME PARTIAL (test code=PTT) 47.7 seconds 25.0-36.5 IS PATIENT ON ANTICOAGULANTS? YLIST ANTICOAGULANTS HEPARINTROPONIN-I 2018-09-30 16:57:00* Test Item Value Reference Range Comments TROPONIN-I (test code=TROPI) 0.174 ng/mL 0-0.045 Results called to [id number] by [place] 09/30/18 1655Critical results verified and read back by Nurse? Y THROMBOPLASTIN TIME [id number] 09:32:00* Test Item Value Reference Range Comments THROMBOPLASTIN TIME PARTIAL (test code=PTT) 71.4 seconds 25.0-36.5 IS PATIENT ON ANTICOAGULANTS? YLIST ANTICOAGULANTS HEPARINTHROMBOPLASTIN TIME [id number] 03:23:00* Test Item Value Reference Range Comments THROMBOPLASTIN TIME PARTIAL (test code=PTT) 64.7 seconds 25.0-36.5 IS PATIENT ON ANTICOAGULANTS? YLIST ANTICOAGULANTS HEPARINTHROMBOPLASTIN TIME [id number] 21:37:00* Test Item Value Reference Range Comments THROMBOPLASTIN TIME PARTIAL (test code=PTT) 64.2 seconds 25.0-36.5 RESULT VERIFIED BY REPEAT ANALYSIS IS PATIENT ON ANTICOAGULANTS? YLIST ANTICOAGULANTS HEPARINTHROMBOPLASTIN TIME [id number] 13:38:00* Test Item Value Reference Range Comments THROMBOPLASTIN TIME PARTIAL (test code=PTT) 70.3 seconds 25.0-36.5 IS PATIENT ON ANTICOAGULANTS? YLIST ANTICOAGULANTS HEPARIN- CT CHEST W/O [id number] 08:41:00 Name: SHWETHA CARCAMO [facility] : 1935 Age/S: 83 / M [address] [facility] #: [id number] Loc: [place] [address] Phys: Tammi Salomon MD Acct: [id number] Dis Date: Status: ADM IN PHONE #: [phone] Exam Date: 09/29/2018827 FAX #: [phone] Reason: copd EXAMS: CPT CODE: [id number] CT CHEST W/O CONTRAST 23073 HISTORY: COPD. COMPARISON: None available. CT of chest without contrast: Automated exposure control. Lungs are clear of infiltrates, effusion or congestion. Subpleural scarring with basal predominance. No bronchiectasis, honeycombing or fibrosis. Calcified granulomas in the right upper lobe. No parenchymal mass or nodules. Mild hyperinflation. Ascending aortic aneurysm at 4 cm. Descending aortic aneurysm at 3.2 cm. Normal caliber pulmonary arteries. Thyroid glands are unremarkable. Esophageal wall is mildly thickened likely from underdistention. No pathologic adenopathy. Cardiac silhouette is nonenlarged. Heavy atherosclerotic calcifications of the coronary arteries. No pericardial effusion. Visualized upper abdomen is demonstrating debris is within the gallbladder. Incompletely included Bosniak 1 and 2 lesions in the left upper pole of the kidney. The subcutaneous tissues and the musculature are normal in appearance. No lytic or blastic lesions are noted within the bony skeleton. DJD. IMPRESSION: The lungs are clear of infiltrates, effusion or congestion. Pulmonary hyperinflation. Pleural scarring with basal predominance in subpleural location bilaterally, slightly greater on the right. No bronchiectasis, honeycombing or fibrosis or endobronchi al lesions. No pathologic adenopathy. Ascending aortic aneurys m at 4 cm and descending aortic aneurysm at 3.2 cm. Electron ically Signed by Pernell Barroso on 09/29/2018 at 0841 Reported and signed by: Harlan Barroso M.D. CC: Parag Garsia; Erik Elizabeth MD; Tammi Salomon MD Technologist:Marco Montgomery RT(R),(MR),(CT) CTDI: DLP: Trnscb Date/Time: 09/29/2018 (840) t.[email or web address] Orig Print D/T: S: 09/29/2018 (843) PAGE 1 Signed Report [id number] 08:21:00* Test Item Value Reference Range Comments GLYCOSYLATED HEMOGLOBIN (HA1C) (test code=GLYHGB) 5.6 % HbA1 4.8-6.0 ESTIMATED AVERAGE GLUCOSE (test code=EAG) 114 MG/DL THROMBOPLASTIN TIME [id number] 05:45:00* Test Item Value Reference Range Comments THROMBOPLASTIN TIME PARTIAL (test code=PTT) 82.4 seconds 25.0-36.5 Results called to by [email or web address] 09/29/18 0545Critical results verified and read back by Nurse? IS PATIENT ON ANTICOAGULANTS? YLIST ANTICOAGULANTS HEPARINTHROMBOPLASTIN TIME [id number] 20:25:00* Test Item Value Reference Range Comments THROMBOPLASTIN TIME PARTIAL (test code=PTT) 28.6 seconds 25.0-36.5 IS PATIENT ON ANTICOAGULANTS? NTHROMBOPLASTIN TIME [id number] 17:04:00* Test Item Value Reference Range Comments THROMBOPLASTIN TIME PARTIAL (test code=PTT) 208.0 seconds 25.0-36.5 Results called to [id number] by [email or web address] 09/28/18 1704Critical results verified and read back by Nurse? Y IS PATIENT ON ANTICOAGULANTS? [id number] 14:59:00* Test Item Value Reference Range Comments HEMATOCRIT (test code=HCT) 44.1 % 42.0-52.0 PLATELET [id number] 14:59:00* Test Item Value Reference Range Comments PLATELET COUNT (test code=PLT) 177 K/mm3 150-450 [id number] 14:58:00* Test Item Value Reference Range Comments HEMATOCRIT (test code=HCT) 44.1 % 42.0-52.0 PLATELET [id number] 14:58:00* Test Item Value Reference Range Comments PLATELET COUNT (test code=PLT) K/mm3 150-450 COAGULATION TIME [id number] 12:08:00* Test Item Value Reference Range Comments COAGULATION TIME ACTIVATED (test code=ACT) 226 seconds 62.8-88.0 [id number] 12:09:00* Test Item Value Reference Range Comments TROPONIN-I (test code=TROPI) 1.640 ng/mL 0-0.045 COMMENTS TO MIXING PICKER TENDER: COLLECT 3 HOURS AFTER PREVIOUS [id number] 08:10:00* Test Item Value Reference Range Comments TROPONIN-I (test code=TROPI) 1.830 ng/mL 0-0.045 Results called to [id number] by PHYLLIS 09/27/18 0810Critical results verified and read back by Nurse? Y COMMENTS TO MIXING PICKER TENDER: COLLECT 3 HOURS AFTER PREVIOUS SAMPLE- XR CHEST 1 [id number] 00:58:00 FAX: Gold Fisher MD [phone] [place]: St: REG FAX: Abimael Rivas MD [phone] Name: SHWETHA CARCAMO [facility] : 1935 Age/S: 83/M [address] [facility] #: [id number] Loc: [place] [address] Phys: Gold Fisher MD Acct: [id number] Dis Date: Status: REG ER PHONE #: [phone] Exam Date: 09/27/2018 0020 FAX #: [phone] Reason: CHEST PAIN EXAMS: CPT CODE: [id number] XR CHEST 1 V [id number] STUDY: Chest radiograph HISTORY: Chest pain COMPARISON: 03/03/2016 TECHNIQUE: Frontal view of the chest. SITE: R16 FINDINGS: The cardiac renny houette is unremarkable. The aorta is atherosclerotic. Again seen is a c alcified granuloma at the right upper lung. There is no focal consolidati on, pleural effusion, or pneumothorax. No acute osseous abnormalit ies are identified. IMPRESSION: No radiographi c evidence for acute pulmonary abnormality. at 0058 Reported and sig cooper by: Parth Rodriguez M.D. CC: Gold Fisher MD; Abimael Wheeler MD Technologist: Chica Weller Trnscrd Date/Time/By: 09/27/2018 (0058) : By: [email or web address] Orig Print D/T: S: 09/27/2018 (0101) PAGE 1 Signed Report CBC W/O [id number] 00:50:00 * Test Item Value Reference Range Comments WHITE BLOOD CELL (test code=WBC) K/mm3 4.5-12.5 RED BLOOD CELL (test code=RBC) mill/mm3 4.0-5.8 HEMOGLOBIN (test code=HGB) 14.0 gram/dL 13.0-17.5 HEMATOCRIT (test code=HCT) 43.2 % 42.0-52.0 MEAN CELL VOLUME (test code=MCV) fL 80-98 MEAN CELL HGB (test code=MCH) picogram 27.0-33.0 MEAN CELL HGB CONCETRATION (test code=MCHC) gram/dL 33.0-36.0 RED CELL DISTRIBUTION WIDTH (test code=RDW) % 11.6-16.2 PLATELET COUNT (test code=PLT) K/mm3 150-450 MEAN PLATELET VOLUME (test code=MPV) fL 6.7-11.0 CBC W/O [id number] 00:50:00* Test Item Value Reference Range Comments WHITE BLOOD CELL (test code=WBC) 8.1 K/mm3 4.5-12.5 RED BLOOD CELL (test code=RBC) 4.60 mill/mm3 4.0-5.8 HEMOGLOBIN (test code=HGB) 14.0 gram/dL 13.0-17.5 HEMATOCRIT (test code=HCT) 43.2 % 42.0-52.0 MEAN CELL VOLUME (test code=MCV) 93.9 fL 80-98 MEAN CELL HGB (test code=MCH) 30.4 picogram 27.0-33.0 MEAN CELL HGB CONCETRATION (test code=MCHC) 32.4 gram/dL 33.0-36.0 RED CELL DISTRIBUTION WIDTH (test code=RDW) 13.4 % 11.6-16.2 PLATELET COUNT (test code=PLT) 183 K/mm3 150-450 MEAN PLATELET VOLUME (test code=MPV) 10.6 fL 6.7-11.0 BASIC METABOLIC [id number] 00:08:00* Test Item Value Reference Range Comments SODIUM (test code=NA) 140 mmol/L 136-145 POTASSIUM (test code=K) 4.1 mmol/L 3.5-5.1 CHLORIDE (test code=CL) 110.0 mmol/L 98-107 CARBON DIOXIDE (test code=CO2) 25.0 mmol/L 21-32 ANION GAP (test code=GAP) 9.1 10-20 GLUCOSE (test code=GLU) 129 mg/dL 74-106 BLOOD UREA NITROGEN (test code=BUN) 25 mg/dL 7-18 GLOMERULAR FILTRATION RATE (test code=GFR) > 60 mL/min >=60 Estimated GFR by using Modified MDRD formula.Chronic kidney disease is defined as either kidney damageor GFR <60 mL/min/1.73 m2 for >3 months. CREATININE (test code=CREAT) 1.10 mg/dL 0.7-1.3 BUN/CREATININE RATIO (test code=BUN/CREA) 22.7 10-20 CALCIUM (test code=CA) 8.6 mg/dL 8.5-10.1 [id number] 00:08:00* Test Item Value Reference Range Comments TROPONIN-I (test code=TROPI) 0.034 ng/mL 0-0.045
[2019-05-12] MEDS ORDERED: HYDRALAZINE HCL 25 MG TAB PO ONE (19:00)
[2019-05-12] MEDS ORDERED: ONDANSETRON HCL INJ 2MG/ML 2ML 2 MG/ML VIAL IV PRN (19:00)
[2019-05-12] MEDS ORDERED: HYDRALAZINE HCL 20 MG/ML VIAL IV PRN (19:00)
[2019-05-12 19:14] LABS: BASOPHILS % 0.6 % (0.0-1.0); EOSINOPHILS # (AUTO) 0.2 (0.0-0.4); EOSINOPHILS % 2.2 % (0.0-6.0); HEMATOCRIT 43.8 % (38.2-49.6); HEMOGLOBIN 14.5 g/dL (14.0-18.0); LYMPHOCYTES # (AUTO) 2.5 (1.0-3.2); LYMPHOCYTES % 34.3 % (18.0-39.1); MEAN CORPUSCULAR HGB CONC 33.1 g/dL (31-35); MEAN CORPUSCULAR VOLUME 93.8 fL (81-99); MONOCYTES % 13.4 % (4.4-11.3); NEUTROPHILS # (AUTO) 3.5 (2.1-6.9); NEUTROPHILS % 49.2 % (38.7-80.0); PLATELET COUNT 203 x10e3/uL (140-360); RED BLOOD COUNT 4.67 x10e6/uL (4.3-5.7); RED CELL DISTRIBUTION WIDTH 14.1 % (11.7-14.4)
[2019-05-12 19:21] LABS: PROTHROMBIN TIME 13.8 seconds (11.9-14.5)
[2019-05-12 19:22] LABS: PARTIAL THROMBOPLASTIN TIME 28.6 seconds (23.8-35.5)
[2019-05-12 19:30] LABS: ALANINE AMINOTRANSFERASE 15 IU/L (0-55); ALBUMIN 3.8 g/dL (3.5-5.0); ALBUMIN/GLOBULIN RATIO 1.3 (0.8-2.0); ALKALINE PHOSPHATASE 57 IU/L (40-150); ANION GAP 10.9 mmol/L (8-16); BLOOD UREA NITROGEN 26 mg/dL (7-26); BUN/CREATININE RATIO 23 (6-25); CALCIUM 8.7 mg/dL (8.4-10.2); CARBON DIOXIDE 26 mmol/L (22-29); CHLORIDE 105 mmol/L (98-107); CREATINE KINASE 182 IU/L (30-200); CREATININE, SERUM 1.12 mg/dL (0.72-1.25); EST GLOMERULAR FILTRATION RATE > 60 ML/MIN (60-); GLUCOSE 74 mg/dL (74-118); MAGNESIUM 2.1 MG/DL (1.3-2.1); POTASSIUM 3.9 mmol/L (3.5-5.1); SODIUM 138 mmol/L (136-145)
[2019-05-12 19:31] LABS: CHOL/HDL RATIO 3.9 (3.9-4.7)
--- NOTE | 2019-05-12 19:45 | Diagnostic Imaging Report ---
Examination: Single AP view of the chest. COMPARISON: None. INDICATION: Bradycardia IMPRESSION: 1. Lines and Tubes: None 2. Lungs are well-inflated. 5 mm calcified granuloma in the left upper lobe. No consolidation or effusion. 3. Cardiomediastinal silhouette is normal. Pulmonary vasculature is normal. CABG changes. Atherosclerotic calcification of the aortic arch. 4. No acute bony abnormalities. Midline sternotomy wires. Signed by: Dr. Jose Alfredo Ayoub M.D. on 05/12/2019 7:43 PM
[2019-05-12 19:50] LABS: THYROID STIMULATING HORMONE 1.482 uIU/mL (0.350-4.940)
--- NOTE | 2019-05-12 20:45 | NUR ---
PATIENT ARRIVED TO THE UNIT VIA WHEELCHAIR FROM ER. RECEIVED REPORT FROM HODAN BARNETT NURSE. PATIENT'S 2 DAUGHTERS AND ACCOMPANIED HIM. PATIENT IN NO PAIN OR DISTRESS. CALL LIGHT WITHIN REACH.
[2019-05-12 20:47] VITALS: BP 155/73
[2019-05-12 20:50] VITALS: BP 155/73
[2019-05-12 20:55] VITALS: BP 155/73
[2019-05-12] MEDS ORDERED: OXYBUTYNIN CHLOR5 MG PO (21:21)
[2019-05-12] MEDS ORDERED: ALPRAZOLAM0.25 MG PO (21:21)
[2019-05-12] MEDS ORDERED: ASPIRIN EC81 MG PO (21:21)
[2019-05-12] MEDS ORDERED: MULTI-VITAMIN1 EACH (21:21)
[2019-05-13] VITALS (8 sets, daily range): BP systolic 130–168; BP diastolic 63–86
--- NOTE | 2019-05-13 02:00 | NUR ---
PATIENT AWAKEN FROM SLEEP BECAUSE HE FELT HEART RATE WAS LOW AND TELE SAID IT WENT DOWN TO THE 30S.
[2019-05-13 02:08] LABS: CREATINE KINASE MB 3.3 ng/mL (0-5.0)
--- NOTE | 2019-05-13 03:10 | NUR ---
DID HOURLY ROUNDING AND PATIENT IS ASLEEP IN BED.
[2019-05-13 05:45] LABS: BASOPHILS % 0.4 % (0.0-1.0); EOSINOPHILS # (AUTO) 0.2 (0.0-0.4); EOSINOPHILS % 2.3 % (0.0-6.0); HEMATOCRIT 43.9 % (38.2-49.6); HEMOGLOBIN 14.4 g/dL (14.0-18.0); LYMPHOCYTES # (AUTO) 2.5 (1.0-3.2); LYMPHOCYTES % 35.5 % (18.0-39.1); MEAN CORPUSCULAR HGB CONC 32.8 g/dL (31-35); MEAN CORPUSCULAR VOLUME 94.4 fL (81-99); MONOCYTES # (AUTO) 0.9 (0.2-0.8); MONOCYTES % 12.1 % (4.4-11.3); NEUTROPHILS # (AUTO) 3.5 (2.1-6.9); NEUTROPHILS % 49.4 % (38.7-80.0); PLATELET COUNT 175 x10e3/uL (140-360); RED BLOOD COUNT 4.65 x10e6/uL (4.3-5.7); RED CELL DISTRIBUTION WIDTH 14.2 % (11.7-14.4)
[2019-05-13 06:10] LABS: CREATINE KINASE MB 5.4 ng/mL (0-5.0)
[2019-05-13 06:37] LABS: ALANINE AMINOTRANSFERASE 14 IU/L (0-55); ALBUMIN 3.6 g/dL (3.5-5.0); ALBUMIN/GLOBULIN RATIO 1.2 (0.8-2.0); ALKALINE PHOSPHATASE 54 IU/L (40-150); ANION GAP 9.8 mmol/L (8-16); BLOOD UREA NITROGEN 23 mg/dL (7-26); BUN/CREATININE RATIO 21 (6-25); CALCIUM 9.1 mg/dL (8.4-10.2); CARBON DIOXIDE 26 mmol/L (22-29); CHLORIDE 107 mmol/L (98-107); EST GLOMERULAR FILTRATION RATE > 60 ML/MIN (60-); GLUCOSE 106 mg/dL (74-118); POTASSIUM 4.8 mmol/L (3.5-5.1); SODIUM 138 mmol/L (136-145)
[2019-05-13] MEDS ORDERED: ACETAMINOPHEN/CODEINE 300MG - 30MG TAB PO PRN (07:00)
[2019-05-13] MEDS ORDERED: ACETAMINOPHEN 325 MG TAB PO PRN (07:00)
--- NOTE | 2019-05-13 07:00 | NUR ---
BEDSIDE ROUND DONE. PT UP IN CHAIR. NO SIGNS OF ANY DISTRESS
[2019-05-13] MEDS: FAMOTIDINE 20 MG TAB PO SCH ×2 (07:30→16:30)
--- NOTE | 2019-05-13 07:40 | NUR ---
GAVE BEDSIDE SHIFT REPORT TO ONCOMING NURSE. CALL LIGHT WITHIN REACH. PATIENT IN BED.
--- NOTE | 2019-05-13 08:15 | NUR ---
DR MILES HERE AWARE OF CARDIAC RHYTHM. PT AWARE OF PACEMAKER BEING DONE LATER
[2019-05-13] MEDS: OXYBUTYNIN CHLORIDE 5 MG TAB PO SCH ×2 (09:00→17:00)
[2019-05-13] MEDS: ASPIRIN 81 MG ENTERIC COATED PO SCH (09:00)
[2019-05-13] MEDS ORDERED: ALPRAZOLAM 0.25 MG TAB PO SCH (09:00)
[2019-05-13] MEDS: MULTIVITAMINS/MINERALS TAB PO SCH (09:00)
--- NOTE | 2019-05-13 12:30 | NUR ---
PT AMBULATING IN [place].
[2019-05-13 14:34] LABS: CREATINE KINASE MB 5.7 ng/mL (0-5.0)
--- NOTE | 2019-05-13 17:20 | NUR ---
IV PLACE IN LT ARM 20G. PT TOLERATED WELL
[2019-05-13] MEDS ORDERED: LIDOCAINE 1% W/EPINEPHRINE 20 ML VIAL ONE (17:21)
[2019-05-13] MEDS ORDERED: SODIUM CHLORIDE 0.9% 1000ML 1,000 ML ONE ×2 (17:22→17:27)
[2019-05-13] MEDS ORDERED: BACITRACIN 50,000 UNIT VIAL ONE (17:22)
[2019-05-13] MEDS ORDERED: SODIUM CHLORIDE 0.9% 500ML 500 ML ONE (17:22)
[2019-05-13] MEDS ORDERED: MIDAZOLAM HCL 2 MG/2 ML VIAL ONE ×2 (17:23→18:23)
[2019-05-13] MEDS ORDERED: FENTANYL CITRATE/PF 100MCG/2 ML INJ ONE (17:24)
--- NOTE | 2019-05-13 17:35 | NUR ---
PT TO [facility] VIA BED.
[2019-05-13] MEDS ORDERED: VANCOMYCIN 1GM/NS 250 ML 250 ML ONE (17:54)
--- NOTE | 2019-05-13 19:34 | NUR ---
RECEIVED BEDSIDE SHIFT REPORT FROM PREVIOUS NURSE. CALL LIGHT WITHIN REACH. PATIENT IN BOILER TESTER RECEIVING A PACEMAKER
--- NOTE | 2019-05-13 19:45 | NUR ---
RECEIVED REPORT FROM CRUZ, WOOD HEEL FITTER MACHINE NURSE. PATIENT ARRIVED VIA STRETCHER WITH LEFT ARM SLING THAT HE NEEDS TO KEEP ON FOR 2 WEEKS. PATIENT IN NO PAIN OR DISTRESS. CALL LIGHT WITHIN REACH. , TWO DAUGHTERS, AND SON AT THE BEDSIDE. PATIENT IS A&OX3
--- NOTE | 2019-05-13 20:17 | Consultation ---
DATE OF CONSULTATION: 05/13/2019 Initial EP Consultation REASON FOR CONSULTATION: Symptomatic bradycardia. HISTORY OF PRESENT ILLNESS: Mr. Roberson is an 84-year-old male with a history of coronary artery disease status post coronary bypass, hypertension, hyperlipidemia, who presents to the hospital as direct admission from his outcomes specialist after he was found to have symptomatic bradycardia. The patient had been having symptoms of generalized fatigue, lightheadedness, dizziness and had a Holter monitor, which demonstrated an AV block with heart rate as low as 30 beats per minute. The patient was directly admitted to the hospital and EP was thus consulted. Currently, the patient denies having any fevers, chills, lightheadedness, dizziness, discharge from eyes, nose, and mouth, swelling of lymph nodes, neck, groin, chest pains, palpitations, shortness of breath, coughing, abdominal pain, nausea, vomiting, dysuria, hematuria, swelling of joints, joint pain, numbness, tingling, weakness, skin rashes, ulcers, swelling in the legs, arms, depression or anxiety. PAST MEDICAL HISTORY: As noted above. PAST SURGICAL HISTORY: Coronary bypass. No other cardiac surgeries. SOCIAL HISTORY: The patient does not smoke any cigarettes, drink alcohol, or use any illicit drugs. FAMILY HISTORY: No significant family history of early cardiac or sudden. MEDICATIONS: Please see MAR. ALLERGIES: NO KNOWN DRUG ALLERGIES. PHYSICAL EXAMINATION: VITAL SIGNS: Temperature is afebrile. Blood pressure is 162/70, heart rate is in the 60s with Wenckebach and respiratory rate 12. GENERAL: No acute distress. Alert, awake, oriented x3. HEENT: Normocephalic, atraumatic. Pupils equal, reactive to light. LYMPH: No supraclavicular or submandibular lymphadenopathy appreciated. CVS: S1, S2. Regular in rate, regular rhythm. RESPIRATORY: Good air entry globally. No wheezing. GI: Abdomen is soft, nontender. : No bladder fullness. No CVA tenderness. MUSCULOSKELETAL: No effusions or erythema noted in the knees or elbows bilaterally. NEURO: Moves all extremities spontaneously. No focal deficits. EXTREMITIES: No edema in lower extremities, upper extremities bilaterally. SKIN: No bruising or ulcers noted. PSYCH: Mood is normal. Answers questions appropriately. LABORATORY DATA: Noted. Transthoracic echocardiogram demonstrated left ventricle ejection fraction 45% to 50%. ASSESSMENT AND PLAN: Mr. Roberson is an 84-year-old man, history as noted above. Presents to the hospital after having symptomatic bradycardia. EP was consulted to discuss the patient the possible treatment modalities. The indications, risks, benefits, and alternatives were discussed. The patient has a pacemaker implantation due to symptomatic bradycardia. This is not reversible. He does meet indication to have one. The patient is agreeable to have his questions answered in a satisfied manner. He will receive his device later today. Thank you very much for this consultation. Please feel free to call if you have any questions. DO BRIGIDA VARNER/GABRIELA /[id number]
--- NOTE | 2019-05-13 20:47 | Operative Report ---
DATE OF PROCEDURE: 05/13/2019 SURGEON: NEAL OLIVER DO CLINICAL INDICATION: Mr. Roberson is an 84-year-old male with history of coronary artery disease, hypertension, and hyperlipidemia, who presented to the hospital with symptomatic bradycardia, noted to have AV block with heart rates in the 30s, on Holter monitor. He received a dual-chamber pacemaker. PROCEDURES PERFORMED: 1. Implantation of St. Angel dual-chamber pacemaker. 2. Left upper extremity venogram. 3. Moderate sedation. PROCEDURE IN DETAIL: After informed consent was obtained, the patient was prepped and draped in the usual manner. Moderate sedation was used for the procedure and a total 4 mg IV Versed and 100 mcg IV fentanyl were given by Wolf Weldon RN, for a total of 70 minutes. The patient was monitored by myself and nurse. Preprocedure time-out and antibiotics were given to the patient. Left upper extremity venogram was performed which demonstrated patency of left axillary vein to the right atrium. Afterwards, 1% lidocaine was given to the left chest region and a 2 cm incision was created over the left chest. A pocket was then created over the pectoralis muscle and hemostasis was confirmed. Afterwards using modified Seldinger technique, uncomplicated venous access then obtained and subsequently 2 guide wires were inserted into the inferior vena cava. A 6-Gabonese peel-away sheath was inserted over the wires and a right atrial pacing lead was inserted through that sheath and brought to the right ventricular apex using a pull-out technique. The lead was screwed to myocardium, lead teacher demonstrated adequate threshold. The sheath was peeled. Afterwards, another 6-Gabonese peel-away sheath was inserted over the other wire and a right atrial pacing lead was inserted through that sheath and brought to the right atrial appendage using a preformed J stylet. The lead was screwed to myocardium, lead teacher demonstrated threshold and the sheath was peeled. Both leads were then sutured to muscle using 0 silk. The pocket was irrigated thoroughly with antibiotic solution and hemostasis was then confirmed. The generator was brought inferiorly and leads were plugged into the generator. Generator and leads were then introduced into the pocket and the generator sutured to muscle using 0 silk. Then, in a standard 3-layer fashion, the pocket was closed using Vicryl and skin glue was applied. At the conclusion of the procedure, the patient tolerated the procedure well. No immediate complications. Fluoroscopy demonstrated normal heart silhouette. No pericardial effusion. No pneumothorax. No retained products in the pocket. IMPLANTED DEVICES: 1. St. Angel model FH8128, serial #[id number]. 2. RA 2088TC/52, serial #[id number]. 3. RV 208TC/58, serial #[id number]. MEASUREMENTS: 1. RA: 1.3 mV, 660 ohms at 1 V at 0.4 millisecond. 2. RV 3.3 mV, 740 ohms, 0.5 V at 0.4 millisecond. 3. Parameters DDDR 60/120. CONCLUSION: 1. Successful implantation of a St. Angel dual-chamber pacemaker. 2. No immediate complication. POSTPROCEDURE PLAN: 1. Bed rest for 6 hours. The patient can resume his prior diet. 2. Incisions to be kept absolutely clean and dry for two weeks. 3. Left arm to stay in a sling overnight to be removed from the sling tomorrow morning. After the two weeks, the patient should use the arm for daily activities, but do not lift it over the shoulder in any direction, do not lift more than 10 pounds of weight. While sleeping at night, put the arm back in the sling. 4. Postprocedure antibiotics and pain medication be given. 5. 1-view chest x-ray and EKG. 6. Device to be interrogated tomorrow morning. 7. If discharge, please follow up with Dr. Carr in clinic in two weeks. DO BRIGIDA VARNER/GABRIELA /[id number] [place]
[2019-05-13] MEDS ORDERED: ATORVASTATIN 10 MG TAB PO SCH ×2 (21:00)
[2019-05-13] MEDS ORDERED: MELATONIN 5 MG TABLET PO PRN (21:00)
--- NOTE | 2019-05-13 21:12 | Consultation ---
DATE OF CONSULTATION: Cardiology Consultation HISTORY OF PRESENT ILLNESS: This is an 84-year-old man with a history of coronary artery disease, status post bypass surgery in 2019, prior episodes of bradycardia, hypertension, hyperlipidemia, who presented to my outpatient clinic with symptoms of severe fatigue, lethargy, shortness of breath, oral paresthesias, and near syncopal symptoms predominantly in the morning. His symptoms were severe, would wake him from his sleep, would improve throughout the day and associated with some abdominal discomfort. Telemetry monitoring was placed, which revealed high-grade AV block in the electronic test technician hours with heart rates in the 30s. REVIEW OF SYSTEMS: A 12-point review of systems was conducted, is negative except as stated above in the HPI. PAST MEDICAL HISTORY: As stated above in the HPI. PAST SURGICAL HISTORY: Bypass surgery. SOCIAL HISTORY: No illicit drugs, alcohol, or tobacco use. ALLERGIES: NO KNOWN DRUG ALLERGIES. MEDICATIONS: See medications reconciliation form. PAST FAMILY HISTORY: Noncontributory to current illness. OBJECTIVE: VITAL SIGNS: Temperature is 95.7, heart rate is 55, respiratory rate is 20, blood pressure is 135/84, oxygen saturation 100% on room air. GENERAL: He is a well-appearing elderly man, seated at bedside, in no apparent distress. Alert and oriented x3. HEENT: Head is normocephalic, atraumatic. Eyes, extraocular muscles are intact. Conjunctivae are clear. NECK: No JVD. No bruits. CARDIOVASCULAR: He is bradycardic. Regular rhythm. LUNGS: Clear to auscultation. ABDOMEN: Soft, nontender, nondistended. EXTREMITIES: No clubbing, cyanosis, or edema. TELEMETRY: Monitoring revealed second-degree AV block. LABORATORY DATA: Laboratory values were within normal limits and all were reviewed. IMAGING: Chest x-ray shows atherosclerosis of the aortic arch, otherwise were unremarkable. IMPRESSION: 1. High-grade AV block. 2. Bradycardia, symptomatic. 3. Coronary artery disease, status post bypass surgery. 4. Hypertension. 5. Hyperlipidemia. RECOMMENDATIONS: This patient has AV block, which has led to symptomatic bradycardia. Given the need for beta blockers and given his coronary artery disease, he will need a permanent pacemaker implantation and re-initiated on his optimal medical therapy for his coronary artery disease. Can resume antihypertensives for blood pressure control. Continue aspirin and statin. Electrophysiology has been consulted for pacemaker insertion. DO SHANNAN Hansen/GABRIELA /[id number]
[2019-05-14] VITALS: BP 128/65
[2019-05-14 04:00] VITALS: BP 154/79
--- NOTE | 2019-05-14 07:12 | NUR ---
GAVE BEDSIDE SHIFT REPORT TO ONCOMING NURSE. CALL LIGHT WITHIN REACH. PATIENT IN BED.
[2019-05-14 07:57] VITALS: BP 167/84
[2019-05-14 08:22] VITALS: BP 167/84
[2019-05-14] MEDS: ASPIRIN 81 MG ENTERIC COATED PO SCH (09:35)
[2019-05-14] MEDS: FAMOTIDINE 20 MG TAB PO SCH (09:35)
[2019-05-14] MEDS: MULTIVITAMINS/MINERALS TAB PO SCH (09:36)
[2019-05-14] MEDS: OXYBUTYNIN CHLORIDE 5 MG TAB PO SCH (09:36)
[2019-05-14] MEDS ORDERED: DIOVAN80 MG PO (10:44)
--- NOTE | 2019-05-15 02:07 | Discharge Summary ---
ADMISSION DIAGNOSES: Symptomatic bradycardia, Wenckebach type 1; hyperlipidemia; benign prostatic hypertrophy. DISCHARGE DIAGNOSES: Symptomatic bradycardia, Wenckebach type 1; hyperlipidemia; benign prostatic hypertrophy; status post ICD placement. HISTORY: Hyperlipidemia, BPH, TIA. SURGICAL HISTORY: Triple-vessel CABG in September of 2018. FAMILY HISTORY: The patient's sister and father have diabetes. The patient's sister had a heart attack and the patient's father had cancer. SOCIAL HISTORY: Occasional alcohol use. HOSPITAL COURSE: An 84-year-old male sent to the ER by Cardiology after noticing bradycardia, heart rate in the 30s while wearing a Holter monitor. Per Cardiology, it was Wenckebach type 1. The patient admits to lethargy and intermittent lightheadedness, mostly at night. On admission, chest x-ray was done that showed no abnormalities. The patient was taken for ICD placement on 05/13. He had a St. Angel dual-chamber pacemaker placed. The following morning, the ICD was interrogated and functioning properly. He will discharge home with new prescription for valsartan per Cardiology recommendation. The patient understands discharge instructions and agrees to plan. Vital signs stable, the patient afebrile. Dictated by Nicci Lin NP MD CHIKIS Arreguin/GABRIELA /[id number]
== END 2019-05-14 10:45 | disposition home or self-care (01) ==
LOC: ER 18:37 → ERHOLD 18:51 → MED/SURG 20:37
PROVIDERS: ADMIT Internal Medicine; ATTEND Internal Medicine
DX: I44.1 Atrioventricular block, second degree (principal); R00.1 Bradycardia, unspecified; I25.10 Atherosclerotic heart disease of native coronary artery without angina pectoris; I10 Essential (primary) hypertension; E78.5 Hyperlipidemia, unspecified; Z95.1 Presence of aortocoronary bypass graft; N40.0 Benign prostatic hyperplasia without lower urinary tract symptoms; Z83.3 Family history of diabetes mellitus; Z80.9 Family history of malignant neoplasm, unspecified; Z82.49 Family history of ischemic heart disease and other diseases of the circulatory system; Z95.810 Presence of automatic (implantable) cardiac defibrillator
CPT/HCPCS: 33208; 36415 ×2; 71045; 80053 ×2; 80061; 82550 ×2; 82553 ×2; 83735; 83880; 84443; 84484 ×2; 85025 ×2; 85610; 85730; 93005; 93306; 99284; C1785; C1898; G0378 ×3; J2250; J3010; J3370; J7030; J7040; 99152; 99153

== ENCOUNTER → 2024-10-14 | Outpatient (REF) | payer MEDICARE, OTHER ==
[~2024-10-14] MED LIST: ALPRAZOLAM0.25 MG PO; ASPIRIN EC81 MG PO; DIOVAN80 MG PO; MULTI-VITAMIN1 EACH; OXYBUTYNIN CHLOR5 MG PO
== END ==
LOC: RAD 11:33
PROVIDERS: ATTEND Specialist/Technologist, Other Surgical Technologist
DX: M25.562 Pain in left knee (principal)